=== PATIENT | male | born 1990 | race African-American/Black ===

== ENCOUNTER 2016-10-14 21:49 | Inpatient (IN) ==
[2016-10-14] MEDS ORDERED: SODIUM CHLORIDE 0.9% 1,000 ML IV STA (22:03)
[2016-10-14] MEDS ORDERED: HYDROmorphone 2 MG/1 ML VIAL IV STA ×2 (22:03→23:09)
[2016-10-14] MEDS ORDERED: PROMETHAZINE 25 MG/1 ML VIAL IM STA (22:06)
[2016-10-14] MEDS ORDERED: PROMETHAZINE 25 MG/1 ML VIAL ONE (22:18)
[2016-10-14] MEDS ORDERED: HYDROmorphone 2 MG/1 ML VIAL ONE ×2 (22:19→23:08)
[2016-10-14 22:21] LABS: Basophils # 0.1 10*3/uL (0.0-0.2); Basophils % 0.3 % (0.0-0.8); Eosinophils # 1.3 10*3/uL (0.0-0.87); Eosinophils % 4.8 % (0.00-10.9); Hematocrit 22.7 VOL% (42.0-52.0); Hemoglobin 7.9 GM/DL (14.0-18.0); Immature Granulocytes % 0.5 %; Immature Granulocytes Absolute 0.15 #; Lymphocytes # 14.3 10*3/uL (1.4-4.0); Lymphocytes % 51.8 % (21.2-54.2); Mean Corpuscular HGB Conc 34.8 GM/DL (32-36); Mean Corpuscular Hemoglobin 34 PG (27-34); Mean Corpuscular Volume 96.6 FL (87-102); Mean Platelet Volume 9.7 FL (9.6-12.0); Monocytes # 1.9 10*3/uL (0.11-0.8); Monocytes % 6.8 % (1.7-12.7); NRBC # 0.24 10*3/uL; Neutrophils # 9.9 10*3/uL (1.4-7.4); Neutrophils % 35.8 % (38.7-73.9); Platelet Count 511 T/CUMM (130-400); Red Blood Count 2.35 MC/CUMM (3.8-5.5); Red Cell Distribution Width 24.4 % (9.3-17.3); White Blood Count 27.7 T/CUMM (4-12)
--- NOTE | 2016-10-14 22:28 | XRay Report ---
XR chest 1V portable Indication: Chest pain. Comparison: Chest x-ray September 12, 2016 Technique: Portable AP chest was performed. Findings: Heart size, mediastinal contour, and hilar structures demonstrate no significant abnormalities. The lung parenchyma is clear. Bones and soft tissues demonstrate no significant abnormalities. Impression: 1. No evidence of acute pathology. 10/14/2016 10:25 PM PROCEDURE INTERPRETED AT [facility] DEPARTMENT OF RADIOLOGY Final Report Signed by: Dr. Vahe Buchanan
[2016-10-14 22:30] LABS: Apearance,Urine CLEAR (Clear); Bilirubin,Urine Negative (Negative); Blood, Urine Negative (Negative); Glucose,Urine (UA) Negative (Negative); Ketones,Urine Negative (Negative); Mucus,Urine Occasional /LPF (Occasional); Nitrite,Urine Negative (Negative); Protein,Urine Negative; Squamous Epithelial Cell,Urine Occasional /HPF (0-10); Urine Color Yellow (Yellow); Urine Specific Gravity 1.009 (1.001-1.035); Urine Urobilinogen < 2.0 EU/DL (0.2-1.0); WBC,Urine 1 /HPF (0-6)
[2016-10-14 22:31] LABS: PT Patient Result 11.1 SECS
[2016-10-14 22:35] LABS: Barbiturates Screen,Urine Negative (Negative); Benzodiazepines Screen,Urine Negative (Negative); Cannabinoid Screen,Urine Negative (Negative); Opiate Screen,Urine Positive (Negative); Phencyclidine Screen,Urine Negative (Negative)
[2016-10-14 22:47] LABS: Albumin 4.8 G/DL (3.4-5.0); Bilirubin,Total 2.5 MG/DL (0.2-1.0); Calcium 9.7 MG/DL (8.5-10.1); Total Protein 7.5 G/DL (6.4-8.3)
[2016-10-14 22:49] LABS: Troponin I Only < 0.015 NG/ML (0.00-0.045)
[2016-10-14 22:52] LABS: Eosinophils 2 % (0-10); Lymphocytes 60 % (20-55); Platelet Estimate Normal; Polychromasia 1+; Segmented Neutrophils 37 % (50-85); Sickle Cells 1+; Total Cells Counted 100
[2016-10-14 22:53] LABS: Target Cells Few
[2016-10-14] MEDS ORDERED: PROMETHAZINE 25 MG/1 ML VIAL IM PRN (23:08)
[2016-10-14] MEDS ORDERED: ZALEPLON 5 MG CAPSULE PO PRN (23:08)
[2016-10-14] MEDS ORDERED: ACETAMINOPHEN 325 MG TABLET PO PRN (23:08)
--- NOTE | 2016-10-14 23:12 | Emergency Department Note ---
Albert Delgado Gwan, am scribing for, and in the presence of, Nolberto Youngblood MD 22 :18. Ford Delgado Charles R, MD, personally performed the services described in this documentation, ascribed by Monie Price in my presence, and it is both accurate and complete 312 . Arrival - Arrival Chief Complaint: Sickle Cell Stated Complaint: SICKLE CELL CRISIS ED Nursing Triage Note: C/O Sickle cell crisis. Onset 2 days ago. Pt reports taking percocet approx 1600 today. Last dose of morphine was this morning. Pt reports that he is hurting all over Mode of Arrival: Ambulatory Limitations: No Limitations Source: Patient, Old Records Reviewed, RN Notes Reviewed Time Seen by Provider: 10/14/16 22:03 - History of Present Illness HPI Narrative: Patient is a 26 y/o black male who presents to the ED for further evaluation of sickle cell crisis that includes pain to long bones that radiates to back with an onset 2 days ago. Nurses report that pt stated he took Percocet at 1600 with minimal relief. Patient confirmed that he has had his spleen removed, that his last blood transfusion was 2 months ago and that he was last seen in ED for sickle cell crisis 1 month ago. Patient has a SHx of smoking cigarettes. Patient does not appear to be in distress. No other problems/complaints reported in ED. Onset (ago): day(s) Consistency: constant Severity: moderate Allergies/Adverse Reactions: Allergies Allergy/AdvReac Type Severity Reaction Status Date / Time Seafood Allergy Intermediate RASH Verified 07/09/16 02:09 ondansetron Allergy ITCHING Verified 07/09/16 02:09 [From Zofran (as hydrochloride)] Home Medications: Home Medications Medication Instructions Recorded Confirmed Type Fluticasone/Salmeterol 250-50 1 puff INH BID #1 diskus 01/26/16 10/14/16 Rx [Advair 250-50] Folic Acid Tab 1 mg PO BID #60 tablet 01/26/16 10/14/16 Rx Hydroxyurea [Hydrea] 2,000 mg PO BEDTIME #120 capsule 01/26/16 10/14/16 Rx Oxycodone HCl/Acetaminophen 1 each PO Q4-6H PRN #60 tablet 05/14/16 10/14/16 Rx [Percocet 10-325 mg Tablet] ALPRAZolam [Xanax] 2 mg PO DAILY 09/12/16 10/14/16 History Lisinopril [Lisinopril] 20 mg PO DAILY 09/12/16 10/14/16 History Morphine Sulfate [Morphine Sulfate 30 mg PO DAILY 09/12/16 10/14/16 History ER] Review of System - Review of System 12 point system: reviewed and no additional remarkable complaints except as stated - Review of System Constitutional: Absent: chills, fever Eyes: Absent: discharge, pain Head/Ears/Nose/Throat: Absent: earache Respiratory: Absent: cough Cardiovascular: Absent: chest pain Gastrointestinal: Absent: abdominal pain, nausea, vomiting, diarrhea Genitourinary male: Absent: urgency, dysuria Musculoskeletal: Present: arm pain, back pain, leg pain, other (pain to bilateral shoulders) Skin: Absent: rash, lesions Medical,Surgical,& Family Hx - Medical History Cardio: History of: Congenital Heart Disease Respiratory: History of: Bronchitis Gastrointestinal: History of: GI Problems (spleen removed) Musculoskeletal: History of: Musculoskeletal Problems (joint pain with sickle cell crisis) No history of: Amputation Hematology: History of: Anemia, Sickle Cell Disease - Surgical History Cardiac Surgeries: Patient Denies: Cardiac Catheterization Thoracic Surgeries: Patient denies;: Organ Transplant, Lobectomy HEENT Surgeries: Surgical HX of: Tonsilectomy & Adenoidectomy Abdominal Surgeries: Surgical HX of: Abdominal Surgery (spleenectomy), Hernia Repair, Splenectomy Reproductive Surgeries: Patient denies;: Genitourinary Surgery - Family History Family History: Reports;: Family Cancer - Social History Smoking Status: Current some day smoker Frequency of Alcohol Use: None Type of Drug Use: None Exam Vital Signs: Vital Signs Temperature 98.7 F 10/14/16 21:53 Pulse Rate 88 10/14/16 21:53 Respiratory Rate 16 10/14/16 21:53 Blood Pressure 130/95 10/14/16 21:53 O2 Sat by Pulse Oximetry 98 10/14/16 21:53 - General General appearance: alert, in no apparent distress - Head Head exam: Present: atraumatic, normocephalic - Eye Eye exam: Present: normal appearance, PERRL, EOMI - ENT ENT exam: Present: normal oropharynx, mucous membranes moist, TM's normal bilaterally, normal external ear exam - Neck Neck exam: Present: full ROM - Chest Chest inspection: Present: symmetric chest wall rise. Absent: tenderness - Respiratory Respiratory exam: Present: normal lung sounds bilaterally. Absent: respiratory distress - Cardiovascular Cardiovascular exam: Present: regular rate, normal rhythm, normal heart sounds. Absent: murmur - Abdominal Exam Abdominal exam: Present: soft, normal bowel sounds. Absent: distention, tenderness - Extremities Exam Extremities exam: Present: other (patient has pain to long bones i.e., bilateral arms, bilateral leg and bilateral shoulders ) - Back Exam Back exam: Present: full ROM - Neurological Exam Neurological exam: Present: alert, oriented X3, CN II-XII intact. Absent: motor sensory deficit - Psychiatric Psychiatric exam: Present: normal affect, normal mood - Skin Skin exam: Present: warm, dry, intact, normal color Course - Consultations Consultation #1: Hospitalist will admit patient Time: 23:12 Results - Labs CBC & BMP: 10/14/16 22:06 10/14/16 22:06 Lab Results: I have reviewed the patients labs Labs: Laboratory Tests 10/14/16 10/14/16 10/14/16 22:05 22:05 22:06 WBC RBC Hgb Hct RDW Plt Count Neut % (Auto) Neut # (Auto) Lymph # (Auto) [place] # (Auto) Eos # (Auto) Percent Retic > 26.1 H INR PT Patient/Control Mix Urine pH 5.0 Ur Specific [place] 1.009 Urine Urobilinogen < 2.0 H Urine WBC 1 Urine Opiates Screen Positive H Ur Barbiturates Screen Negative Ur Phencyclidine Scrn Negative U Amphetamine/Methamph Negative U Benzodiazepines Scrn Negative U Cocaine Metab Screen Negative U Cannabinoids Screen Negative 10/14/16 10/14/16 22:06 22:06 WBC 27.7 H RBC 2.35 L Hgb 7.9 L Hct 22.7 L RDW 24.4 H Plt Count 511 H Neut % (Auto) 35.8 L Neut # (Auto) 9.9 H Lymph # (Auto) 14.3 H [place] # (Auto) 1.9 H Eos # (Auto) 1.3 H Percent Retic INR 1.0 PT Patient/Control Mix 11.1 Urine pH Ur Specific [place] Urine Urobilinogen Urine WBC Urine Opiates Screen Ur Barbiturates Screen Ur Phencyclidine Scrn U Amphetamine/Methamph U Benzodiazepines Scrn U Cocaine Metab Screen U Cannabinoids Screen Laboratory Tests 10/14/16 10/14/16 22:06 22:06 WBC 27.7 H RBC 2.35 L Hgb 7.9 L Hct 22.7 L RDW 24.4 H Plt Count 511 H Neut % (Auto) 35.8 L Neut # (Auto) 9.9 H Lymph # (Auto) 14.3 H [place] # (Auto) 1.9 H Eos # (Auto) 1.3 H Segmented Neutrophils 37 L Lymphocytes 60 H Monocytes 1 L Sodium 143 Potassium 4.0 Chloride 110 H Carbon Dioxide 26 BUN 11 Creatinine 1.20 Total Bilirubin 2.50 H Lipase 140.0 - Diagnostic Findings Procedure: Chest x-ray: report reviewed by me (No evidence of acute pathology. ) Disposition Clinical Impression: Sickle cell pain crisis, Anemia Case discussed with: patient, patient's family Disposition: Still a Patient Condition: Stable Time of Disposition: 23:12
--- NOTE | 2016-10-14 23:32 | Hospitalist History & Physical ---
Assessment and Plan (1) Anemia Status: Acute Current Visit: Yes Qualifiers: Anemia type: other cause Other causes of anemia: chronic disease, other Qualified Code(s): D63.8 - Anemia in other chronic diseases classified elsewhere (2) chronic pain Status: Acute Current Visit: No (3) Sickle cell pain crisis Status: Acute Assessment and plan: Our plan for this patient. We will get admit the patient to our service. I will schedule him 3 mg IV Dilaudid every 3 hours as needed. Continue his other home meds as appropriate. Patient needs to be on this for about 48 hours then it can be trimmed back his pain decreases. I try not to transfuse the patient at this time. Patient's H&H 7.9 at 22.7. Will try IV fluids and check labs in the morning Current Visit: Yes History of Present Illness Chief complaint: Sickle cell crisis History of present illness: Mr. Patel is a 26 year old male with past medical history significant for sickle cell disease reports a 2 day history of sickle cell pain. Patient's were reported that he has got pain from his shoulders all the way down to his legs. Patient was trying to stay at home on his p.o. medications. He receives his medication from [facility] therefore he will not need prescriptions once he is discharged. Patient's white cell count is elevated and retake count is greater than 26.1. Patient's total bili is 2.5. Patient does need to be admitted to treat a sickle cell crisis. I was consulted to admit him to the emergency room. Home Medications Medication Instructions Recorded Confirmed Type Fluticasone/Salmeterol 250-50 1 puff INH BID #1 diskus 01/26/16 10/14/16 Rx [Advair 250-50] Folic Acid Tab 1 mg PO BID #60 tablet 01/26/16 10/14/16 Rx Hydroxyurea [Hydrea] 2,000 mg PO BEDTIME #120 capsule 01/26/16 10/14/16 Rx Oxycodone HCl/Acetaminophen 1 each PO Q4-6H PRN #60 tablet 05/14/16 10/14/16 Rx [Percocet 10-325 mg Tablet] ALPRAZolam [Xanax] 2 mg PO DAILY 09/12/16 10/14/16 History Lisinopril [Lisinopril] 20 mg PO DAILY 09/12/16 10/14/16 History Morphine Sulfate [Morphine Sulfate 30 mg PO DAILY 09/12/16 10/14/16 History ER] Allergies Allergy/AdvReac Type Severity Reaction Status Date / Time Seafood Allergy Intermediate RASH Verified 07/09/16 02:09 ondansetron Allergy ITCHING Verified 07/09/16 02:09 [From Zofran (as hydrochloride)] Medical,Surgical,& Family Hx - Medical History Cardio: History of: Congenital Heart Disease Respiratory: History of: Bronchitis Gastrointestinal: History of: GI Problems (spleen removed) Musculoskeletal: History of: Musculoskeletal Problems (joint pain with sickle cell crisis) No history of: Amputation Hematology: History of: Anemia, Sickle Cell Disease - Surgical History Cardiac Surgeries: Patient Denies: Cardiac Catheterization Thoracic Surgeries: Patient denies;: Organ Transplant, Lobectomy HEENT Surgeries: Surgical HX of: Tonsilectomy & Adenoidectomy Abdominal Surgeries: Surgical HX of: Abdominal Surgery (spleenectomy), Hernia Repair, Splenectomy Reproductive Surgeries: Patient denies;: Genitourinary Surgery - Family History Family History: Reports;: Family Cancer - Social History Smoking Status: Current some day smoker Frequency of Alcohol Use: None Type of Drug Use: None 12 point system: reviewed and no additional remarkable complaints except as stated Exam - Constitutional General appearance: normal weight - Head Head exam: Present: normal inspection - Eye Eye exam: Present: EOMI Pupils: Present: JOSE G - ENT ENT exam: Present: normal exam - Neck Neck exam: Present: normal inspection - Respiratory Respiratory exam: Present: clear to auscultation bilaterally - Cardiovascular Cardiovascular exam: Present: tachycardia - GI/Abdominal GI/Abdominal exam: Present: normal bowel sounds - Extremities Exam Extremities exam: Present: normal inspection - Back Exam Back exam: Present: normal inspection - Neurological Exam Neurological exam: Present: alert, oriented X3 - Psychiatric Psychiatric exam: Present: normal affect, normal mood - Skin Skin exam: Present: normal color Results - Labs CBC & BMP: 10/14/16 22:06 10/14/16 22:06
[2016-10-14] MEDS: SODIUM CHLORIDE 0.9% 1,000 ML IV SCH (23:58)
[2016-10-14] MEDS: ENOXAPARIN 40 MG/0.4 ML SYRINGE SUBCUT SCH (23:58)
[2016-10-14] MEDS: HYDROXYUREA 500 MG CAPSULE PO SCH (23:58)
[2016-10-15] MEDS: HYDROmorphone 2 MG/1 ML VIAL IV PRN ×9 (00:08→23:53)
[2016-10-15] MEDS: SODIUM CHLORIDE 0.9% 1,000 ML IV SCH ×4 (03:07→23:59)
[2016-10-15 05:18] LABS: Basophils # 0.1 10*3/uL (0.0-0.2); Basophils % 0.2 % (0.0-0.8); Eosinophils # 1.3 10*3/uL (0.0-0.87); Eosinophils % 5.2 % (0.00-10.9); Hematocrit 20.1 VOL% (42.0-52.0); Hemoglobin 6.9 GM/DL (14.0-18.0); Immature Granulocytes % 0.5 %; Immature Granulocytes Absolute 0.12 #; Lymphocytes # 13.4 10*3/uL (1.4-4.0); Lymphocytes % 55.7 % (21.2-54.2); Mean Corpuscular HGB Conc 34.3 GM/DL (32-36); Mean Corpuscular Hemoglobin 34 PG (27-34); Mean Corpuscular Volume 97.6 FL (87-102); Mean Platelet Volume 10.1 FL (9.6-12.0); Monocytes # 1.6 10*3/uL (0.11-0.8); Monocytes % 6.6 % (1.7-12.7); NRBC # 0.19 10*3/uL; Neutrophils # 7.6 10*3/uL (1.4-7.4); Neutrophils % 31.8 % (38.7-73.9); Platelet Count 467 T/CUMM (130-400); Red Blood Count 2.06 MC/CUMM (3.8-5.5); Red Cell Distribution Width 23.4 % (9.3-17.3)
[2016-10-15 05:39] LABS: Eosinophils 7 % (0-10); Lymphocytes 49 % (20-55); Platelet Estimate Adequate; Segmented Neutrophils 38 % (50-85); Total Cells Counted 100
[2016-10-15 05:40] LABS: Elliptocytes Few; Hypochromasia 1+; Macrocytosis Slight; Polychromasia Slight; Sickle Cells Few; Target Cells Few
[2016-10-15 05:41] LABS: Howell-Jolly Bodies Slight
[2016-10-15 05:42] LABS: Pappenheimer Bodies Slight
[2016-10-15 05:58] LABS: Albumin 4.2 G/DL (3.4-5.0); Bilirubin,Total 2.8 MG/DL (0.2-1.0); Potassium 4.3 MMOL/L (3.5-5.1); Total Protein 6.3 G/DL (6.4-8.3)
[2016-10-15] MEDS: ALPRAZolam 0.5 MG TABLET PO SCH (09:05)
[2016-10-15] MEDS: PANTOPRAZOLE 40 MG TABLET PO SCH (09:06)
[2016-10-15] MEDS: DOCUSATE SODIUM 100 MG CAPSULE PO SCH ×2 (09:06→20:43)
[2016-10-15] MEDS: LISINOPRIL 20 MG TABLET PO SCH (09:06)
[2016-10-15] MEDS: MORPHINE ER 30 MG TABLET PO SCH (09:06)
[2016-10-15] MEDS: FOLIC ACID 1 MG TABLET PO SCH ×2 (09:06→20:43)
[2016-10-15] MEDS: FLUTICASONE/SALMETEROL 250-50 DISKUS 14 DOSE INH SCH ×2 (09:07→20:44)
[2016-10-15] MEDS ORDERED: SODIUM CHLORIDE 0.9% 250 ML IV PRN (10:46)
[2016-10-15] MEDS ORDERED: diphenhydrAMINE 50 MG/1 ML VIAL IV ONE ×3 (10:51→11:04)
--- NOTE | 2016-10-15 10:54 | Hospitalist Progress Note ---
Assessment and Plan (1) Anemia Status: Acute Assessment and plan: Noted hemoglobin and hematocrit down from admission probably because of hemolysis as total bilirubin is elevated. I will go ahead and check the LDH level. I will repeat LDH and hemoglobin hematocrit tomorrow after transfusion of 2 packed RBC patient to keep hydrated. He complained of itching so I will give him a dose of Benadryl IV with transfusion. I have discussed the transfusion with him and explain him the risk and benefit and he is okay with a transfusion actually was expecting to have a packed cell transfusion due to his symptoms Current Visit: Yes Qualifiers: Anemia type: other cause Other causes of anemia: chronic disease, other Qualified Code(s): D63.8 - Anemia in other chronic diseases classified elsewhere (2) Sickle cell pain crisis Status: Acute Assessment and plan: Continue current analgesic dosing will try to cut down the dose after the transfusion Current Visit: Yes Hospitalist: Subjective Interval history: Mr. Patel is a 26 year old male with past medical history significant for sickle cell disease admitted with the generalized pain started 2 days prior to admission. He has pain medication at home and keep himself hydrated. 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 There is no history of for chest pain cough or fever. He was admitted noted to have a leukocytosis on admission and total bilirubin was 2.5. He has been on analgesic here and according to patient it is helping some with the pain Exam - Constitutional Vitals: Period Temp Pulse Resp BP Sys/Wheeler Pulse Ox Last 24 Hr 97.7 F-98.9 F 80-92 18-20 154-169/93-102 96-98 General appearance: no acute distress - Respiratory Respiratory exam: Present: clear to auscultation bilaterally. Absent: rales, rhonchi - Cardiovascular Cardiovascular exam: Present: regular rate and rhythm. Absent: tachycardia - GI/Abdominal GI/Abdominal exam: Present: normal bowel sounds, soft. Absent: distended, tenderness - Extremities Exam Extremities exam: Present: normal inspection. Absent: edema - Neurological Exam Neurological exam: Present: alert, oriented X3 - Psychiatric Psychiatric exam: Present: normal affect, normal mood Results - Labs CBC & BMP: 10/15/16 04:38 10/15/16 04:38 Lab Results: I have reviewed the past 24 hour labs
[2016-10-15] MEDS: HYDROXYUREA 500 MG CAPSULE PO SCH (20:43)
[2016-10-15] MEDS: ENOXAPARIN 40 MG/0.4 ML SYRINGE SUBCUT SCH (20:49)
[2016-10-16] MEDS ORDERED: hydrOXYzine HCL 25 MG TABLET PO PRN (00:20)
[2016-10-16] MEDS: SODIUM CHLORIDE 0.9% 1,000 ML IV SCH ×2 (00:37→14:36)
[2016-10-16] MEDS: HYDROmorphone 2 MG/1 ML VIAL IV PRN ×7 (02:52→20:31)
[2016-10-16] MEDS: diphenhydrAMINE CAP 25 MG CAPSULE PO PRN (02:56)
[2016-10-16 06:22] LABS: Basophils # 0.1 10*3/uL (0.0-0.2); Basophils % 0.2 % (0.0-0.8); Eosinophils # 1.3 10*3/uL (0.0-0.87); Eosinophils % 6.3 % (0.00-10.9); Hematocrit 25.1 VOL% (42.0-52.0); Hemoglobin 8.7 GM/DL (14.0-18.0); Immature Granulocytes % 0.5 %; Immature Granulocytes Absolute 0.11 #; Lymphocytes # 7.2 10*3/uL (1.4-4.0); Lymphocytes % 35.7 % (21.2-54.2); Mean Corpuscular HGB Conc 34.7 GM/DL (32-36); Mean Corpuscular Hemoglobin 32 PG (27-34); Mean Platelet Volume 10.2 FL (9.6-12.0); Monocytes # 1.1 10*3/uL (0.11-0.8); Monocytes % 5.5 % (1.7-12.7); NRBC # 0.22 10*3/uL; Neutrophils # 10.5 10*3/uL (1.4-7.4); Neutrophils % 51.8 % (38.7-73.9); Platelet Count 464 T/CUMM (130-400); Red Cell Distribution Width 23.4 % (9.3-17.3); White Blood Count 20.3 T/CUMM (4-12)
[2016-10-16 06:45] LABS: Eosinophils 5 % (0-10); Lymphocytes 43 % (20-55); Nucleated Red Blood Cells 1 (0-5); Segmented Neutrophils 46 % (50-85); Total Cells Counted 100
[2016-10-16 06:46] LABS: Elliptocytes Few; Hypochromasia 1+; Macrocytosis Slight; Platelet Estimate Adequate; Polychromasia Slight; Target Cells Few
[2016-10-16 06:48] LABS: Sickle Cells Slight
[2016-10-16 06:49] LABS: Howell-Jolly Bodies Slight; Pappenheimer Bodies Slight
[2016-10-16 06:56] LABS: Calcium 9.6 MG/DL (8.5-10.1); Osmolality,Calculated 278.4 MOS/KG (273-304); Potassium 4.6 MMOL/L (3.5-5.1)
[2016-10-16] MEDS: ALPRAZolam 0.5 MG TABLET PO SCH (09:59)
[2016-10-16] MEDS: LISINOPRIL 20 MG TABLET PO SCH (09:59)
[2016-10-16] MEDS: MORPHINE ER 30 MG TABLET PO SCH (09:59)
[2016-10-16] MEDS: DOCUSATE SODIUM 100 MG CAPSULE PO SCH ×2 (09:59→20:37)
[2016-10-16] MEDS: PANTOPRAZOLE 40 MG TABLET PO SCH (09:59)
[2016-10-16] MEDS: FOLIC ACID 1 MG TABLET PO SCH ×2 (09:59→20:37)
[2016-10-16] MEDS: FLUTICASONE/SALMETEROL 250-50 DISKUS 14 DOSE INH SCH ×2 (10:00→20:48)
--- NOTE | 2016-10-16 14:55 | Hospitalist Progress Note ---
Assessment and Plan (1) Anemia Status: Acute Assessment and plan: Patient was given to packed RBC transfusion and his hemoglobin hematocrit improved appropriately his anemia symptom better Current Visit: Yes Qualifiers: Anemia type: other cause Other causes of anemia: chronic disease, other Qualified Code(s): D63.8 - Anemia in other chronic diseases classified elsewhere (2) Sickle cell pain crisis Status: Acute Assessment and plan: Still complaining of pain Current Visit: Yes Hospitalist: Subjective Interval history: Mr. Patel is a 26 year old male with past medical history significant for sickle cell disease admitted with the generalized pain started 2 days prior to admission. He has pain medication at home and keep himself hydrated. 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 There is no history of for chest pain cough or fever. He was admitted noted to have a leukocytosis on admission and total bilirubin was 2.5. He has been on dialudid here and according to patient it is helping some with the pain. He was transfused yesterday with a 2 packed RBC and his report that his energy level is back but still having pain in the upper back and feel he required to have pain medication the hospital to control. He has oral medication at home no fever chest pain or shortness of breath Exam - Constitutional Vitals: Period Temp Pulse Resp BP Sys/Wheeler Pulse Ox Last 24 Hr 97.4 F-99.4 F 75-90 18-20 140-178/85-105 91-95 General appearance: no acute distress - Respiratory Respiratory exam: Present: clear to auscultation bilaterally. Absent: rales, rhonchi - Cardiovascular Cardiovascular exam: Present: regular rate and rhythm. Absent: tachycardia - GI/Abdominal GI/Abdominal exam: Present: normal bowel sounds, soft. Absent: distended, tenderness - Extremities Exam Extremities exam: Present: normal inspection. Absent: edema - Neurological Exam Neurological exam: Present: alert, oriented X3 Results - Labs CBC & BMP: 10/16/16 05:52 10/16/16 05:52 Lab Results: I have reviewed the past 24 hour labs
[2016-10-16] MEDS: HYDROXYUREA 500 MG CAPSULE PO SCH (20:37)
[2016-10-16] MEDS: ENOXAPARIN 40 MG/0.4 ML SYRINGE SUBCUT SCH (20:48)
[2016-10-17] MEDS: HYDROmorphone 2 MG/1 ML VIAL IV PRN ×3 (00:33→11:52)
[2016-10-17] MEDS: diphenhydrAMINE CAP 25 MG CAPSULE PO PRN (00:33)
[2016-10-17] MEDS: SODIUM CHLORIDE 0.9% 1,000 ML IV SCH (07:49)
[2016-10-17 08:29] VITALS: BP 146/80
[2016-10-17] MEDS: MORPHINE ER 30 MG TABLET PO SCH (08:48)
[2016-10-17] MEDS: LISINOPRIL 20 MG TABLET PO SCH (08:48)
[2016-10-17] MEDS: FOLIC ACID 1 MG TABLET PO SCH (08:48)
[2016-10-17] MEDS: PANTOPRAZOLE 40 MG TABLET PO SCH (08:48)
[2016-10-17] MEDS: ALPRAZolam 0.5 MG TABLET PO SCH (08:48)
[2016-10-17] MEDS: DOCUSATE SODIUM 100 MG CAPSULE PO SCH (08:48)
[2016-10-17] MEDS: FLUTICASONE/SALMETEROL 250-50 DISKUS 14 DOSE INH SCH (10:29)
--- NOTE | 2016-10-17 12:19 | Discharge Summary ---
Hospital Course - Hospital Course Hospital Course: Mr. Patel is a 26 year old male with past medical history significant for sickle cell disease admitted with the generalized pain started 2 days prior to admission. He has pain medication at home and keep himself hydrated. 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 He had no history of for chest pain,shortness of breath cough or fever. He was admitted noted to have a leukocytosis on admission and total bilirubin was 2.5. He was started on IV fluids and Dilaudid IV as needed. His pain progressively improved noted to have a hemoglobin of 6.9 on 10/15/2016 which was a drop from 7.9 earlier. He received 2 packed RBC transfusion and his hemoglobin rising to 8.7 next day he reported his energy level was improved but still had some pain yesterday. He remained afebrile. He is ready to go home today he is being followed by Dr. Welch and has morphine prescription at home does not need any pain medicine prescription. He has received maximum benefit from hospitalization and discharged Diagnosis - Discharge Diagnosis (1) Anemia Status: Chronic (2) Sickle cell pain crisis Status: Acute Discharge Plan - Discharge Data Disposition: Disch To Home/Self Care Condition at Discharge: Stable Discharge Diet: advance to your usual diet Activity: resume usual activities as tolerated, other (Avoid dehydration) - Discharge Medications Continue Fluticasone/Salmeterol 250-50 [Advair 250-50] 1 puff INH BID #1 diskus Folic Acid Tab 1 mg PO BID #60 tablet Hydroxyurea [Hydrea] 2,000 mg PO BEDTIME #120 capsule Oxycodone HCl/Acetaminophen [Percocet 10-325 mg Tablet] 1 each PO Q4-6H PRN # 60 tablet PRN Reason: Pain Lisinopril 20 mg PO DAILY Morphine Sulfate [Morphine Sulfate ER] 30 mg PO DAILY ALPRAZolam [Xanax] 2 mg PO DAILY - Follow Up or Referral - Forms/Instructions Exam - Constitutional Vitals: Period Temp Pulse Resp BP Sys/Wheeler Pulse Ox Last 24 Hr 98.3 F-99.2 F 73-85 16-20 142-163/80-98 91-94 General appearance: no acute distress - Respiratory Respiratory exam: Present: clear to auscultation bilaterally. Absent: rales, rhonchi - Cardiovascular Cardiovascular exam: Present: regular rate and rhythm. Absent: tachycardia - GI/Abdominal GI/Abdominal exam: Present: normal bowel sounds, soft. Absent: distended, tenderness - Extremities Exam Extremities exam: Present: normal inspection. Absent: edema - Neurological Exam Neurological exam: Present: alert, oriented X3 DS: Provider Date of admission: 10/14/16 23:08 Primary care physician: . No PCP Attending physician on admission: Venancio Gutierrez MD Discharging clinician: Jamal Banks MD
== END 2016-10-17 12:01 | disposition home or self-care (01) | DRG 812 ==
LOC: N.ED 21:49 → N.EDINP 23:08 → SUATTDRO 23:08 → N.4E 23:33
PROVIDERS: ADMIT Internal Medicine; ATTEND Internal Medicine

== ENCOUNTER 2016-11-23 02:59 | Inpatient (IN) ==
[2016-11-23] MEDS ORDERED: SODIUM CHLORIDE 0.9% 1,000 ML IV STA (03:22)
[2016-11-23] MEDS ORDERED: HYDROmorphone 2 MG/1 ML VIAL IV STA ×2 (03:22→04:01)
[2016-11-23] MEDS ORDERED: METOCLOPRAMIDE 10 MG/2 ML VIAL IV STA (03:22)
[2016-11-23] MEDS ORDERED: HYDROmorphone 2 MG/1 ML VIAL ONE ×2 (03:32→04:04)
[2016-11-23] MEDS ORDERED: METOCLOPRAMIDE 10 MG/2 ML VIAL ONE (03:32)
[2016-11-23 03:42] LABS: Basophils % 0.1 % (0.0-0.8); Eosinophils # 1.1 10*3/uL (0.0-0.87); Eosinophils % 4.2 % (0.00-10.9); Immature Granulocytes % 0.6 %; Immature Granulocytes Absolute 0.15 #; Lymphocytes # 8.6 10*3/uL (1.4-4.0); Lymphocytes % 34.2 % (21.2-54.2); Mean Corpuscular HGB Conc 36.9 GM/DL (32-36); Mean Corpuscular Hemoglobin 34 PG (27-34); Mean Corpuscular Volume 91.2 FL (87-102); Mean Platelet Volume 9.8 FL (9.6-12.0); Monocytes # 1.6 10*3/uL (0.11-0.8); Monocytes % 6.4 % (1.7-12.7); NRBC # 0.17 10*3/uL; Neutrophils # 13.7 10*3/uL (1.4-7.4); Neutrophils % 54.5 % (38.7-73.9); Platelet Count 422 T/CUMM (130-400); Red Blood Count 2.05 MC/CUMM (3.8-5.5); Red Cell Distribution Width 22.6 % (9.3-17.3); White Blood Count 25.2 T/CUMM (4-12)
--- NOTE | 2016-11-23 03:43 | Emergency Department Note ---
I, Renea De Leon, am scribing for, and in the presence of, Giovana Brady DO 03:28. I, Giovana Brady DO, personally performed the services described in this documentation, ascribed by Renea De Leon in my presence, and it is both accurate and complete . Arrival - Arrival Chief Complaint: Sickle Cell Stated Complaint: sickle cell crisis smith at level 10 ED Nursing Triage Note: Patient to triage with c/o sickle cell crisis x 2 days. Patient having patient in all joints, which is typical pain for him during a crisis. Mode of Arrival: Ambulatory Limitations: No Limitations Source: Patient Time Seen by Provider: 11/23/16 03:17 - History of Present Illness HPI Narrative: Pt is a 26 y/o male who came to ED with c/o left shoulder pain to bilateral ankle pain, basically in joints, that has been ongoing for two days. Pt was seeing a specialist for his Sickle Cell Anemia in [place], [place], but denies having one currently. Pt states he thinks his blood is low. Pt is demanding in pain medication tonight, and reports last visit he wasn't given anything that helped to control it. No other complaint/pain in ED. Onset (ago): day(s) Consistency: constant Severity: mild Severity scale (1-10): 3 Quality: aching Allergies/Adverse Reactions: Allergies Allergy/AdvReac Type Severity Reaction Status Date / Time Seafood Allergy Intermediate RASH Verified 11/23/16 03:08 ondansetron Allergy ITCHING Verified 11/23/16 03:08 [From Zofran (as hydrochloride)] promethazine [From Phenergan] Allergy HIVES Verified 11/23/16 03:08 Home Medications: Home Medications Medication Instructions Recorded Confirmed Type Fluticasone/Salmeterol 250-50 1 puff INH BID #1 diskus 01/26/16 11/08/16 Rx [Advair 250-50] Folic Acid Tab 1 mg PO BID #60 tablet 01/26/16 11/08/16 Rx Hydroxyurea [Hydrea] 2,000 mg PO BEDTIME #120 capsule 01/26/16 11/08/16 Rx Oxycodone HCl/Acetaminophen 1 each PO Q4-6H PRN #60 tablet 05/14/16 11/08/16 Rx [Percocet 10-325 mg Tablet] Lisinopril 20 mg PO DAILY 09/12/16 11/08/16 History Morphine Sulfate [Morphine Sulfate 30 mg PO DAILY 09/12/16 11/08/16 History ER] Review of System - Review of System 12 point system: reviewed and no additional remarkable complaints except as stated - Review of System Constitutional: Absent: fever, weakness Respiratory: Absent: respiratory distress Cardiovascular: Absent: chest pain Gastrointestinal: Absent: abdominal pain Musculoskeletal: Present: other (body aches from shoulder to ankles pain). Absent: neck pain Skin: Absent: rash Medical,Surgical,& Family Hx - Medical History Cardio: History of: Congenital Heart Disease Respiratory: History of: Bronchitis Gastrointestinal: History of: GI Problems (spleen removed) Musculoskeletal: History of: Musculoskeletal Problems (joint pain with sickle cell crisis) No history of: Amputation Hematology: History of: Anemia, Sickle Cell Disease - Surgical History Cardiac Surgeries: Patient Denies: Cardiac Catheterization Thoracic Surgeries: Patient denies;: Organ Transplant, Lobectomy HEENT Surgeries: Surgical HX of: Tonsilectomy & Adenoidectomy Abdominal Surgeries: Surgical HX of: Abdominal Surgery (spleenectomy), Hernia Repair, Splenectomy Reproductive Surgeries: Patient denies;: Genitourinary Surgery - Family History Family History: Reports;: Family Cancer - Social History Smoking Status: Current some day smoker Frequency of Alcohol Use: Occasionally Type of Drug Use: None Marital Status: Single Functional capacity: independent ambulation Exam Vital Signs: Vital Signs Temperature 99.0 F 11/23/16 03:05 Pulse Rate 102 H 11/23/16 03:05 Respiratory Rate 22 11/23/16 03:05 Blood Pressure 158/94 11/23/16 03:05 O2 Sat by Pulse Oximetry 89 L 11/23/16 03:05 - General General appearance: alert, in no apparent distress - Head Head exam: Present: atraumatic, normocephalic - Eye Eye exam: Present: PERRL, EOMI - ENT ENT exam: Present: mucous membranes moist. Absent: mucous membranes dry - Neck Neck exam: Present: full ROM. Absent: tenderness - Chest Chest inspection: Present: symmetric chest wall rise. Absent: tenderness - Respiratory Respiratory exam: Present: normal lung sounds bilaterally. Absent: respiratory distress - Cardiovascular Cardiovascular exam: Present: regular rate, normal rhythm, normal heart sounds - Abdominal Exam Abdominal exam: Present: soft, normal bowel sounds. Absent: tenderness - Extremities Exam Extremities exam: Present: full ROM. Absent: tenderness, pedal edema - Back Exam Back exam: Present: full ROM. Absent: tenderness - Neurological Exam Neurological exam: Present: alert, oriented X3, CN II-XII intact. Absent: motor sensory deficit - Psychiatric Psychiatric exam: Present: normal affect, normal mood - Skin Skin exam: Present: warm, dry Course Course Narrative: spoke with hospitalist who will admit pt. pt is stable at this time and requesting more pain meds. he has had a total of 4 mg dilaudid Results - Labs CBC & BMP: 11/23/16 03:27 11/23/16 03:27 Lab Results: I have reviewed the patients labs Labs: Laboratory Tests 11/23/16 03:27 WBC 25.2 H RBC 2.05 L Hgb 6.9 L Hct 18.7 L MCHC 36.9 H RDW 22.6 H Plt Count 422 H Neut # (Auto) 13.7 H Lymph # (Auto) 8.6 H [place] # (Auto) 1.6 H Eos # (Auto) 1.1 H Percent Retic > 26.1 H Disposition Clinical Impression: Sickle cell pain crisis Case discussed with: patient Disposition: Still a Patient Condition: Stable Time of Disposition: 04:07
[2016-11-23 03:50] LABS: Hematocrit 18.7 VOL% (42.0-52.0); Hemoglobin 6.9 GM/DL (14.0-18.0)
[2016-11-23 03:53] LABS: Apearance,Urine CLEAR (Clear); Bacteria,Urine Occasional /HPF (Few); Bilirubin,Urine Negative (Negative); Blood, Urine Moderate mg/dL (Negative); Glucose,Urine (UA) Negative (Negative); Hyaline Casts,Urine 1 /LPF (0-3); Ketones,Urine Negative (Negative); Nitrite,Urine Negative (Negative); Protein,Urine 100 MG/DL; Squamous Epithelial Cell,Urine Occasional /HPF (0-10); Urine Specific Gravity 1.008 (1.001-1.035); WBC,Urine 1 /HPF (0-6)
[2016-11-23 03:57] LABS: Albumin 4.5 G/DL (3.4-5.0); Bilirubin,Total 5.2 MG/DL (0.2-1.0); Calcium 9.5 MG/DL (8.5-10.1); Osmolality,Calculated 281.1 MOS/KG (273-304); Potassium 4.4 MMOL/L (3.5-5.1)
[2016-11-23 04:00] LABS: Barbiturates Screen,Urine Negative (Negative); Benzodiazepines Screen,Urine Negative (Negative); Cannabinoid Screen,Urine Negative (Negative); Opiate Screen,Urine Positive (Negative); Phencyclidine Screen,Urine Negative (Negative)
[2016-11-23] MEDS ORDERED: SODIUM CHLORIDE 0.9% 250 ML IV PRN (04:02)
[2016-11-23] MEDS ORDERED: ZALEPLON 5 MG CAPSULE PO PRN (04:02)
[2016-11-23] MEDS ORDERED: BISACODYL 5 MG TABLET PO PRN (04:02)
[2016-11-23] MEDS ORDERED: MORPHINE 2 MG/1 ML SYRINGE IV PRN (04:02)
[2016-11-23] MEDS ORDERED: ACETAMINOPHEN 325 MG TABLET PO PRN (04:02)
[2016-11-23] MEDS ORDERED: diphenhydrAMINE 50 MG/1 ML VIAL IV STA (04:07)
[2016-11-23 04:08] LABS: Urine Color Amber (Yellow)
[2016-11-23] MEDS ORDERED: diphenhydrAMINE 50 MG/1 ML VIAL ONE (04:09)
[2016-11-23 04:43] LABS: Band Neutrophils 8 % (0-10); Eosinophils 4 % (0-10); Lymphocytes 32 % (20-55); Nucleated Red Blood Cells 9 (0-5); Platelet Estimate Increased; Segmented Neutrophils 52 % (50-85); Total Cells Counted 100
--- NOTE | 2016-11-23 04:43 | Hospitalist History & Physical ---
Assessment and Plan - Time spent with patient Time spent with patient: Less than 30 minutes (1) Sickle cell pain crisis Status: Acute Assessment and plan: Patient presents with 2 days of acute sickle cell pain crisis. Admit to med/ surg floor. IV fluid resuscitation. Continue home pain meds, add fentanyl patch. Transfuse 2 units of PRBCs. Current Visit: Yes (2) Leukocytosis Status: Acute Assessment and plan: Blood cultures. 1 g Rocephin IV. Current Visit: Yes (3) Hypertension Status: Acute Assessment and plan: Continue home meds. Current Visit: Yes History of Present Illness Chief complaint: sickle cell crisis History of present illness: Mr. Patel is a 26 year old Afican [place] male with a past medical history significant for sickle cell anemia who presents to the ED tonight with complaints of acute pain which onset 2 days ago. 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 He attributes this, in addiction to admission of medical noncompliance, to the onset of his sickle cell crisis today. On exam, he is noticeably uncomfortable, refusing to lie down and rocking back and forth. He conversation is flighty, yet rational when questioned directly. He states that this pain is typical of a crisis for him. He also specifically requests 3mg of Dilaudid IV plus 50mg of Benadryl IV, stating this is what "works" for him. The patient's vitals are stable with the exception of tachycardia. Lab work reveals WBC 25.2, hemoglobin 6.9, hematocrit 18.7, percent reticulocytes 26.1, total bilirubin 5.20, AST 44. Urine drug screen positive for opiates. Case has been discussed with Dr. Brady, ER physician, and Dr. Longo, admitting physician, and the patient will be admitted to the hospital medicine service for further evaluation and treatment. He is a full code. His home meds have been reconciled and reviewed. Home Medications Medication Instructions Recorded Confirmed Type Fluticasone/Salmeterol 250-50 1 puff INH BID #1 diskus 01/26/16 11/08/16 Rx [Advair 250-50] Folic Acid Tab 1 mg PO BID #60 tablet 01/26/16 11/08/16 Rx Hydroxyurea [Hydrea] 2,000 mg PO BEDTIME #120 capsule 01/26/16 11/08/16 Rx Oxycodone HCl/Acetaminophen 1 each PO Q4-6H PRN #60 tablet 05/14/16 11/08/16 Rx [Percocet 10-325 mg Tablet] Lisinopril 20 mg PO DAILY 09/12/16 11/08/16 History Morphine Sulfate [Morphine Sulfate 30 mg PO DAILY 09/12/16 11/08/16 History ER] Allergies Allergy/AdvReac Type Severity Reaction Status Date / Time Seafood Allergy Intermediate RASH Verified 11/23/16 03:08 ondansetron Allergy ITCHING Verified 11/23/16 03:08 [From Zofran (as hydrochloride)] promethazine [From Phenergan] Allergy HIVES Verified 11/23/16 03:08 Medical,Surgical,& Family Hx - Medical History Cardio: History of: Congenital Heart Disease Respiratory: History of: Bronchitis Gastrointestinal: History of: GI Problems (spleen removed) Musculoskeletal: History of: Musculoskeletal Problems (joint pain with sickle cell crisis) No history of: Amputation Hematology: History of: Anemia, Sickle Cell Disease - Surgical History Cardiac Surgeries: Patient Denies: Cardiac Catheterization Thoracic Surgeries: Patient denies;: Organ Transplant, Lobectomy HEENT Surgeries: Surgical HX of: Tonsilectomy & Adenoidectomy Abdominal Surgeries: Surgical HX of: Abdominal Surgery (spleenectomy), Hernia Repair, Splenectomy Reproductive Surgeries: Patient denies;: Genitourinary Surgery - Family History Family History: Reports;: Family Cancer - Social History Smoking Status: Current some day smoker (4-5 cigarettes daily) Have you smoked in the last 12 months: Yes Time spent discussing smoking cessation with patient: 3 to 10 minutes Frequency of Alcohol Use: Occasionally Type of Drug Use: None Marital Status: Single Lives With:: Significant Other Functional capacity: independent ambulation 12 point system: reviewed and no additional remarkable complaints except as stated Exam - Constitutional Vitals: Period Temp Pulse Resp BP Sys/Wheeler Pulse Ox Last 24 Hr 99.0 F-99.0 F 102-102 22-22 158-158/94-94 89 Exam: General appearance: normal weight, acute sickle cell crisis, disheveled - Head Head exam: Present: normocephalic, atraumatic - Eye Eye exam: Present: EOMI. Absent: conjunctival injection, nystagmus Pupils: Present: JOSE G, normal accommodation - ENT ENT exam: Present: normal exam, normal external ear exam - Neck Neck exam: Present: normal inspection. Absent: lymphadenopathy, tenderness, thyromegaly - Respiratory Respiratory exam: Present: clear to auscultation bilaterally. Absent: rales, rhonchi, wheezes - Cardiovascular Cardiovascular exam: Present: regular rate and rhythm. Absent: carotid bruit, gallop, rubs - GI/Abdominal GI/Abdominal exam: Present: normal bowel sounds. Absent: ascites, distended, mass - Extremities Exam Extremities exam: Present: normal inspection, normal capillary refill. Absent: edema - Back Exam Back exam: Absent: CVA tenderness (L), CVA tenderness (R) - Neurological Exam Neurological exam: Present: alert, oriented X3, CN II-XII intact, normal reflexes - Psychiatric Psychiatric exam: Present: mild agitation, conversation is rational - Skin Skin exam: Present: normal color, warm, dry Results - Labs CBC & BMP: 11/23/16 03:27 11/23/16 03:27 Sepsis - Sepsis Classification of Sepsis: Sepsis - Physical Exam Physical Exam: Patient is tachycardic with heart rate greater than 100, tachycardic with respiratory rate 22, white count 25.2. - Physical Exam Respiratory exam: clear to auscultation bilaterally Capillary Refill: Less Than 3 Seconds Peripheral pulses: Radial (L): 2+, Radial (R): 2+, Dorsalis Pedis (L) PM: 2+, Dorsalis Pedis (R) PM: 2+ Cardiovascular exam: tachycardia Skin exam: normal color
[2016-11-23 04:44] LABS: Anisocytosis 3+; Elliptocytes Few; Hypochromasia 2+; Macrocytosis 2+; Microcytosis 1+; Ovalocytes 1+; Poikilocytosis 3+; Polychromasia 1+; Sickle Cells 2+; Target Cells 1+
[2016-11-23] MEDS: cefTRIAXone 1,000 MG in SODIUM CHLORIDE 0.9% 100 ML IV SCH (05:07)
[2016-11-23] MEDS: LACTATED RINGERS 1,000 ML IV SCH ×3 (05:08→18:18)
[2016-11-23] MEDS: oxyCODONE/ACETAMINOPHEN 5-325 MG TABLET PO PRN ×3 (05:08→20:56)
[2016-11-23] MEDS ORDERED: PNEUMOCOCCAL VACCINE (13 VALENT) 0.5 ML SYRINGE IM ONE (05:51)
[2016-11-23] MEDS ORDERED: fentaNYL 25 MCG/HR PATCH TRANSDERM SCH (09:00)
[2016-11-23] MEDS: MORPHINE ER 30 MG TABLET PO SCH (09:42)
[2016-11-23] MEDS: ENOXAPARIN 40 MG/0.4 ML SYRINGE SUBCUT SCH (09:42)
[2016-11-23] MEDS: PANTOPRAZOLE 40 MG TABLET PO SCH (09:42)
[2016-11-23] MEDS: FLUTICASONE/SALMETEROL 250-50 DISKUS 14 DOSE INH SCH ×2 (09:42→22:06)
[2016-11-23] MEDS: LISINOPRIL 20 MG TABLET PO SCH (09:42)
[2016-11-23] MEDS: FOLIC ACID 1 MG TABLET PO SCH ×2 (09:42→20:58)
--- NOTE | 2016-11-23 10:28 | XRay Report ---
History: Shortness of breath Date: 11/23/2016 Study: Chest x-ray AP portable Comparison exam: October 14, 2016 The cardiac silhouette is borderline prominent. There is no mediastinal mass. The pulmonary vasculature is not engorged. The lungs are clear except for some mild platelike subsegmental atelectasis in the right lung base. There is no gross pleural effusion. Osseous structures are similar. Impression: Mild platelike subsegmental atelectasis right lung base. No definite acute process PROCEDURE INTERPRETED AT [facility] DEPARTMENT OF RADIOLOGY Final Report Signed by: Dr. Janet Jacobson
[2016-11-23] MEDS ORDERED: HYDROmorphone 2 MG/1 ML VIAL IV PRN (10:31)
[2016-11-23] MEDS ORDERED: diphenhydrAMINE CAP 50 MG CAPSULE ONE (10:37)
[2016-11-23] MEDS: diphenhydrAMINE CAP 50 MG CAPSULE PO PRN ×2 (10:38→20:58)
[2016-11-23] MEDS ORDERED: HYDROmorphone 2 MG/1 ML VIAL IV ONE (11:41)
[2016-11-23] MEDS: HYDROmorphone 2 MG/1 ML VIAL IV PRN ×3 (14:41→22:05)
--- NOTE | 2016-11-23 15:35 | Hospitalist Progress Note ---
Assessment and Plan (1) Anemia Status: Chronic Assessment and plan: 2 units of packed red blood cells currently being administered, recheck H&H upon completion and CBC in a.m. Current Visit: No Qualifiers: Anemia type: other cause Other causes of anemia: chronic disease, other Qualified Code(s): D63.8 - Anemia in other chronic diseases classified elsewhere (2) chronic pain Status: Acute Current Visit: No (3) Sickle cell pain crisis Status: Acute Assessment and plan: Morphine 2 mg IV every 4 was discontinued and replaced with Dilaudid 2 mg IV every 6 hours. Patient was given a one-time dose of Dilaudid 1 mg IV before administration of blood due to stated excessive pain. Dilaudid schedule was changed again to 2 mg IV every 4 hours. Current Visit: Yes (4) Leukocytosis Status: Acute Assessment and plan: Due to stress reaction from sickle cell crisis, check CBC in a.m. patient is also on Rocephin 1 g every 24 hours cultures pending. Current Visit: Yes Hospitalist: Subjective Interval history: Patient is a sickle cell patient who is well-known to the inpatient service as well as the other [facility] for coming in and pain crisis seeking pain management. Resented to the [facility] ER last night with increased white count and decreased H&H. Pain medicines have been administered and 2 units of blood ordered. Patient is frequently missing from room and nursing staff has trouble locating him at times. Nursing staff cannot find him when his blood was ready to be administered. Yet, when he comes back to the room he complains of not having enough pain control. Fentanyl patch was placed earlier this morning and now the patient claims it fell off and he cannot find it. Patient continues to be rude to nursing staff and very demanding to providers. We are very compassionate towards this patient's pain crisis will not tolerate disrespect from patients towards staff and providers. We have received several more calls from the nurses station since my exam stating the patient has left his room, even one time with blood hanging from the IV pole. Patient is very demanding and requires more resources then should be allocated towards one patient. Long discussion was had with patient about personal responsibility and the fact that he needs to follow-up with his cell specialist and be compliant with his chronic medications to prevent future pain crisis. Patient does not voice understanding and insists that it is the staff's fault in each facility that he is admitted to. Exam - Constitutional Vitals: Period Temp Pulse Resp BP Sys/Wheeler Pulse Ox Last 24 Hr 97.9 F-99.0 F 87-102 14-22 137-160/78-97 89-95 General appearance: normal weight - Head Head exam: Present: normal inspection - Eye Eye exam: Present: EOMI Pupils: Present: JOSE G - Respiratory Respiratory exam: Present: clear to auscultation bilaterally - Cardiovascular Cardiovascular exam: Present: regular rate and rhythm - GI/Abdominal GI/Abdominal exam: Present: normal bowel sounds, soft - Neurological Exam Neurological exam: Present: alert, oriented X3 - Psychiatric Psychiatric exam: Present: normal affect, agitated - Skin Skin exam: Present: normal color, warm Results - Labs CBC & BMP: 11/23/16 03:27 11/23/16 03:27
[2016-11-23] MEDS ORDERED: HYDROXYUREA 500 MG CAPSULE PO SCH (21:00)
[2016-11-24] MEDS: oxyCODONE/ACETAMINOPHEN 5-325 MG TABLET PO PRN (00:47)
[2016-11-24] MEDS: HYDROmorphone 2 MG/1 ML VIAL IV PRN ×3 (01:43→09:00)
[2016-11-24] MEDS: LACTATED RINGERS 1,000 ML IV SCH (02:26)
[2016-11-24] MEDS: cefTRIAXone 1,000 MG in SODIUM CHLORIDE 0.9% 100 ML IV SCH ×2 (05:29→05:36)
[2016-11-24 05:58] LABS: Basophils # 0.1 10*3/uL (0.0-0.2); Basophils % 0.2 % (0.0-0.8); Eosinophils # 0.9 10*3/uL (0.0-0.87); Hematocrit 21.1 VOL% (42.0-52.0); Hemoglobin 7.5 GM/DL (14.0-18.0); Immature Granulocytes % 0.7 %; Immature Granulocytes Absolute 0.16 #; Lymphocytes # 10.1 10*3/uL (1.4-4.0); Lymphocytes % 44.7 % (21.2-54.2); Mean Corpuscular HGB Conc 35.5 GM/DL (32-36); Mean Corpuscular Hemoglobin 31 PG (27-34); Mean Corpuscular Volume 86.8 FL (87-102); Mean Platelet Volume 9.8 FL (9.6-12.0); Monocytes # 1.6 10*3/uL (0.11-0.8); Monocytes % 7.2 % (1.7-12.7); NRBC # 0.19 10*3/uL; Neutrophils # 9.7 10*3/uL (1.4-7.4); Neutrophils % 43.2 % (38.7-73.9); Platelet Count 392 T/CUMM (130-400); Red Blood Count 2.43 MC/CUMM (3.8-5.5); Red Cell Distribution Width 26.7 % (9.3-17.3); White Blood Count 22.5 T/CUMM (4-12)
[2016-11-24 06:49] LABS: Calcium 9.5 MG/DL (8.5-10.1); Magnesium 1.9 MG/DL (1.8-2.4); Osmolality,Calculated 278.4 MOS/KG (273-304); Potassium 4.4 MMOL/L (3.5-5.1)
[2016-11-24 07:12] LABS: Elliptocytes Few; Eosinophils 2 % (0-10); Hypochromasia 1+; Lymphocytes 48 % (20-55); Macrocytosis 1+; Nucleated Red Blood Cells 2 (0-5); Pappenheimer Bodies Slight; Platelet Estimate Adequate; Polychromasia 1+; Segmented Neutrophils 45 % (50-85); Sickle Cells Few; Total Cells Counted 100
[2016-11-24 07:13] LABS: Howell-Jolly Bodies Slight
[2016-11-24] MEDS: FOLIC ACID 1 MG TABLET PO SCH (07:53)
[2016-11-24] MEDS: PANTOPRAZOLE 40 MG TABLET PO SCH (07:54)
[2016-11-24] MEDS: LISINOPRIL 20 MG TABLET PO SCH (07:54)
[2016-11-24] MEDS: MORPHINE ER 30 MG TABLET PO SCH (07:55)
[2016-11-24] MEDS: FLUTICASONE/SALMETEROL 250-50 DISKUS 14 DOSE INH SCH (08:02)
[2016-11-24] MEDS: ENOXAPARIN 40 MG/0.4 ML SYRINGE SUBCUT SCH (08:02)
--- NOTE | 2016-11-24 08:03 | Discharge Summary ---
Hospital Course - Hospital Course Hospital Course: 26-year-old -[place] male with a history of sickle cell admitted for sickle cell crisis. Patient was given IV Dilaudid. Patient reports his pain is better today and is ready for discharge. Patient has had multiple admissions for sickle cell crisis. He was supposed to see Dr. Welch for pain management but he is no longer seeing him due to termination. Patient does not have a regular physician as they cannot find anybody he would take him. His hemoglobin on admission was 6.9. He was given 2 units packed red blood cells and his hemoglobin has come up to 7.5. No evidence of infection was found. He chronically has an elevated white count. Patient will be discharged home today on Percocet and morphine. I informed him he needed to find a primary care physician who could care for him. Patient sees a specialist in a mobile. - Time spent with patient Time with patient DS: Less than 30 minutes Discharge Plan - Discharge Data Disposition: Disch To Home/Self Care Condition at Discharge: Stable Discharge Diet: regular diet Activity: resume usual activities as tolerated Hygiene: no restrictions Weight Bearing at Discharge: full weight bearing Driving: other (not while on narcotics) - Discharge Medications New Oxycodone HCl/Acetaminophen [Percocet 10-325 mg Tablet] 1 each PO Q6H #45 tablet Continue Fluticasone/Salmeterol 250-50 [Advair 250-50] 1 puff INH BID #1 diskus Folic Acid Tab 1 mg PO BID #60 tablet Hydroxyurea [Hydrea] 2,000 mg PO BEDTIME #120 capsule Lisinopril 20 mg PO DAILY Morphine Sulfate [Morphine Sulfate ER] 30 mg PO DAILY #30 Discontinued Oxycodone HCl/Acetaminophen [Percocet 10-325 mg Tablet] 1 each PO Q4-6H PRN # 60 tablet PRN Reason: Pain - Follow Up or Referral - Forms/Instructions Exam - Constitutional Vitals: Period Temp Pulse Resp BP Sys/Wheeler Pulse Ox Last 24 Hr 96.9 F-98.6 F 81-97 16-21 110-160/62-97 91-98 General appearance: normal weight, no acute distress - Respiratory Respiratory exam: Present: clear to auscultation bilaterally. Absent: rhonchi, wheezes - Cardiovascular Cardiovascular exam: Present: regular rate and rhythm. Absent: systolic murmur - GI/Abdominal GI/Abdominal exam: Present: normal bowel sounds, soft. Absent: tenderness - Extremities Exam Extremities exam: Present: normal inspection, normal capillary refill Discharge Results Procedures and tests throughout hospitalization: Pending Orders 11/23/16 08:27 Blood Culture Stat 11/25/16 04:00 LDH [Lactate Dehydrogenase] IN AM Reticulocyte Count IN AM Labs on day of discharge: Labs from last 24 hours 11/24/16 11/24/16 11/24/16 05:25 05:25 05:25 WBC RBC Hgb Hct MCV MCH MCHC RDW Plt Count MPV Neut % (Auto) Lymph % (Auto) [place] % (Auto) Eos % (Auto) Baso % (Auto) Neut # (Auto) Lymph # (Auto) [place] # (Auto) Eos # (Auto) Baso # (Auto) Total Counted Immature Gran % Nucleated RBC % Immature Gran # Segmented Neutrophils Lymphocytes Monocytes Eosinophils Nucleated RBCs Nucleated RBCs # Platelet Estimate Polychromasia Hypochromasia Macrocytosis Pappenheimer Bodies Sickle Cells High-[place] Bodies Elliptocytes Morphology Comment Absolute Retic 0.6 Percent Retic > 26.1 H Retic Hgb Equivalent 29.1 Sodium 140 Potassium 4.4 Chloride 105 Carbon Dioxide 27 Anion Gap 12.4 BUN 13 Creatinine 0.90 GFR Calculation 171 BUN/Creatinine Ratio 14.00 Glucose 91 Calculated Osmolality 278.4 Calcium 9.5 Magnesium 1.9 Lactate Dehydrogenase 484 H Blood Type Antibody Screen Crossmatch 11/24/16 11/23/16 05:25 04:00 WBC 22.5 H RBC 2.43 L Hgb 7.5 L Hct 21.1 L MCV 86.8 L MCH 31 MCHC 35.5 RDW 26.7 H Plt Count 392 MPV 9.8 Neut % (Auto) 43.2 Lymph % (Auto) 44.7 [place] % (Auto) 7.2 Eos % (Auto) 4.0 Baso % (Auto) 0.2 Neut # (Auto) 9.7 H Lymph # (Auto) 10.1 H [place] # (Auto) 1.6 H Eos # (Auto) 0.9 H Baso # (Auto) 0.1 Total Counted 100 Immature Gran % 0.7 Nucleated RBC % 0.8 Immature Gran # 0.16 Segmented Neutrophils 45 L Lymphocytes 48 Monocytes 5 Eosinophils 2 Nucleated RBCs 2 Nucleated RBCs # 0.19 Platelet Estimate Adequate Polychromasia 1+ Hypochromasia 1+ Macrocytosis 1+ Pappenheimer Bodies Slight Sickle Cells Few High-[place] Bodies Slight Elliptocytes Few Morphology Comment Absolute Retic Percent Retic Retic Hgb Equivalent Sodium Potassium Chloride Carbon Dioxide Anion Gap BUN Creatinine GFR Calculation BUN/Creatinine Ratio Glucose Calculated Osmolality Calcium Magnesium Lactate Dehydrogenase Blood Type AB POSITIVE Antibody Screen Negative Crossmatch See Detail DS: Provider Date of admission: 11/23/16 04:02 Primary care physician: . No PCP Attending physician on admission: Mahogany Longo MD Discharging clinician: Skyla Aguilar MD
[2016-11-24 14:52] VITALS: BP 156/92
== END 2016-11-24 10:20 | disposition home or self-care (01) | DRG 812 ==
LOC: N.ED 02:59 → SUATTDRO 04:02 → N.EDINP 04:02 → N.5E 04:24
PROVIDERS: ADMIT Family Medicine; ATTEND Internal Medicine

== ENCOUNTER 2017-01-17 21:56 | Inpatient (IN) ==
[2017-01-17] MEDS ORDERED: MEPERIDINE 25 MG/1 ML VIAL IV STA (22:18)
[2017-01-17] MEDS ORDERED: SODIUM CHLORIDE 0.9% 1,000 ML IV STA (22:18)
[2017-01-17] MEDS ORDERED: METOCLOPRAMIDE 10 MG/2 ML VIAL IV STA (22:22)
--- NOTE | 2017-01-17 22:24 | Emergency Department Note ---
Arrival - Arrival Chief Complaint: Sickle Cell Stated Complaint: sickle cell pain ED Nursing Triage Note: C/O BILATERAL PAIN FROM SHOULDER TO ANKLES. ONSET TWO DAYS AGO Mode of Arrival: Ambulatory Limitations: No Limitations Source: Patient Time Seen by Provider: 01/17/17 22:18 - History of Present Illness HPI Narrative: This 26-year-old black male with sickle cell anemia presents once again with complaints of polyarthropathy pain and stiffness although he is quite athletic jumping around on the gurney without difficulty.. He states the pain is extreme and he cannot control at home. Denies any chills, fever, nausea, vomiting, dysuria, chest pain, hemoptysis, purulence, or any other indications of an inciting situation. Currently he is medically stable. Onset (ago): day(s) (Patient presents 2 days post onset of symptoms) Allergies/Adverse Reactions: Allergies Allergy/AdvReac Type Severity Reaction Status Date / Time Seafood Allergy Intermediate RASH Verified 11/23/16 03:08 ondansetron Allergy ITCHING Verified 11/23/16 03:08 [From Zofran (as hydrochloride)] promethazine [From Phenergan] Allergy HIVES Verified 11/23/16 03:08 Home Medications: Home Medications Medication Instructions Recorded Confirmed Type Fluticasone/Salmeterol 250-50 1 puff INH BID #1 diskus 01/26/16 11/08/16 Rx [Advair 250-50] Folic Acid Tab 1 mg PO BID #60 tablet 01/26/16 11/08/16 Rx Hydroxyurea [Hydrea] 2,000 mg PO BEDTIME #120 capsule 01/26/16 11/08/16 Rx Lisinopril 20 mg PO DAILY 09/12/16 11/08/16 History Morphine Sulfate [Morphine Sulfate 30 mg PO DAILY #30 11/24/16 Rx ER] Oxycodone HCl/Acetaminophen 1 each PO Q6H #45 tablet 11/24/16 Rx [Percocet 10-325 mg Tablet] Review of System - Review of System 12 point system: reviewed and no additional remarkable complaints except as stated - Review of System Constitutional: Present: as per HPI Musculoskeletal: Present: as per HPI Medical,Surgical,& Family Hx - Medical History Cardio: History of: Congenital Heart Disease Respiratory: History of: Bronchitis Gastrointestinal: History of: GI Problems (spleen removed) Musculoskeletal: History of: Musculoskeletal Problems (joint pain with sickle cell crisis) No history of: Amputation Hematology: History of: Anemia, Sickle Cell Disease - Surgical History Cardiac Surgeries: Patient Denies: Cardiac Catheterization Thoracic Surgeries: Patient denies;: Organ Transplant, Lobectomy HEENT Surgeries: Surgical HX of: Tonsilectomy & Adenoidectomy Abdominal Surgeries: Surgical HX of: Abdominal Surgery (spleenectomy), Hernia Repair, Splenectomy Reproductive Surgeries: Patient denies;: Genitourinary Surgery - Family History Family History: Reports;: Family Cancer - Social History Smoking Status: Current some day smoker Frequency of Alcohol Use: None Type of Drug Use: None Exam Physical Examination: GENERAL: Well developed, well nourished black male in no acute distress. HEENT: Normocephalic. No trauma. Moist mucous membranes. EOMI. PERRLA. ENT NML NECK: Supple. No adenopathy. CARDIAC: Regular. No murmurs. Heart rate 89 CHEST: Clear to auscultation. No respiratory distress. O2 sat 95% ABDOMEN: Soft. Nontender. Active bowel sounds. EXTREMITIES: No trauma. Normal ROM but complains of pain with actual movement to the range of motion of all large joints. No pedal edema. SKIN: No diaphoresis. No rash. NEURO: Alert. Neuro intact no focal deficits. Vital Signs: Vital Signs Temperature 98.1 F 01/17/17 23:47 Pulse Rate 72 01/17/17 22:16 Respiratory Rate 18 01/17/17 22:16 Blood Pressure 154/92 01/17/17 22:16 O2 Sat by Pulse Oximetry 95 01/17/17 22:05 Course - Reevaluation(s) Reevaluation #1: Discussed with patient back and forth whether or not he should be hospitalized but he is at a point where he usually has transfusions. For this reason he will be admitted for pain control and blood products. - Consultations Consultation #1: Discussed with hospitalist service who will admit for further evaluation treatment. Results - Labs CBC & BMP: 01/17/17 22:24 01/17/17 22:24 Labs: I have reviewed the laboratory and noted the low hematocrit, elevated white blood cell count, and elevated reticulocyte count and LDH. - Diagnostic Findings Procedure: Chest x-ray: image reviewed by me, report reviewed by me (Normal chest with no evidence of interval change from previous films.) Disposition Clinical Impression: Sickle cell crisis Case discussed with: patient, patient's family Disposition: Still a Patient Condition: Guarded Time of Disposition: 00:47
[2017-01-17] MEDS ORDERED: METOCLOPRAMIDE 10 MG/2 ML VIAL ONE (22:30)
[2017-01-17] MEDS ORDERED: MEPERIDINE 25 MG/1 ML VIAL ONE (22:30)
[2017-01-17 22:35] LABS: Basophils # 0.1 10*3/uL (0.0-0.2); Basophils % 0.3 % (0.0-0.8); Eosinophils # 1.1 10*3/uL (0.0-0.87); Eosinophils % 4.7 % (0.00-10.9); Hematocrit 19.5 VOL% (42.0-52.0); Immature Granulocytes % 0.4 %; Immature Granulocytes Absolute 0.09 #; Lymphocytes # 10.4 10*3/uL (1.4-4.0); Lymphocytes % 45.6 % (21.2-54.2); Mean Corpuscular HGB Conc 35.9 GM/DL (32-36); Mean Corpuscular Hemoglobin 34 PG (27-34); Mean Corpuscular Volume 94.2 FL (87-102); Mean Platelet Volume 9.8 FL (9.6-12.0); Monocytes # 1.9 10*3/uL (0.11-0.8); Monocytes % 8.3 % (1.7-12.7); NRBC # 0.08 10*3/uL; Neutrophils # 9.3 10*3/uL (1.4-7.4); Neutrophils % 40.7 % (38.7-73.9); Platelet Count 412 T/CUMM (130-400); Red Blood Count 2.07 MC/CUMM (3.8-5.5); Red Cell Distribution Width 21.7 % (9.3-17.3); White Blood Count 22.9 T/CUMM (4-12)
[2017-01-17] MEDS ORDERED: HYDROmorphone 2 MG/1 ML VIAL IV STA ×3 (22:49→23:43)
[2017-01-17] MEDS ORDERED: HYDROmorphone 2 MG/1 ML VIAL ONE ×3 (22:52→23:45)
[2017-01-17 22:55] LABS: Albumin 4.5 G/DL (3.4-5.0); Bilirubin,Total 3.3 MG/DL (0.2-1.0); Calcium 9.3 MG/DL (8.5-10.1); Osmolality,Calculated 281.4 MOS/KG (273-304); Potassium 4.3 MMOL/L (3.5-5.1); Total Protein 7.2 G/DL (6.4-8.3)
[2017-01-17] MEDS ORDERED: cefTRIAXone 1,000 MG in SODIUM CHLORIDE 0.9% 100 ML IV STA (23:11)
[2017-01-17] MEDS ORDERED: cefTRIAXone 1,000 MG VIAL ONE (23:26)
[2017-01-18 00:03] LABS: Eosinophils 3 % (0-10); Lymphocytes 50 % (20-55); Metamyelocytes 1 %; Platelet Estimate Increased; Segmented Neutrophils 41 % (50-85); Total Cells Counted 100
[2017-01-18 00:04] LABS: Anisocytosis 3+; Elliptocytes 1+; Hypochromasia 2+; Macrocytosis 2+; Microcytosis 1+; Ovalocytes 2+; Sickle Cells 1+; Target Cells 2+
[2017-01-18 00:05] LABS: Poikilocytosis 2+; Polychromasia 2+
[2017-01-18 00:14] LABS: Apearance,Urine CLEAR (Clear); Bacteria,Urine Occasional /HPF (Few); Bilirubin,Urine Negative (Negative); Blood, Urine Small mg/dL (Negative); Glucose,Urine (UA) Negative (Negative); Ketones,Urine Negative (Negative); Mucus,Urine Occasional /LPF (Occasional); Nitrite,Urine Negative (Negative); Protein,Urine Negative; Urine Color Yellow (Yellow); Urine Specific Gravity 1.006 (1.001-1.035); Urine Urobilinogen < 2.0 EU/DL (0.2-1.0); WBC,Urine <1 /HPF (0-6)
[2017-01-18] MEDS ORDERED: DOCUSATE SODIUM 100 MG CAPSULE PO PRN (01:47)
[2017-01-18] MEDS: SODIUM CHLORIDE 0.9% 1,000 ML IV SCH ×3 (01:59→15:24)
[2017-01-18] MEDS: diphenhydrAMINE 50 MG/1 ML VIAL IV PRN ×4 (02:04→19:52)
[2017-01-18] MEDS: HYDROmorphone 2 MG/1 ML VIAL IV PRN ×8 (02:05→22:42)
--- NOTE | 2017-01-18 03:59 | Hospitalist History & Physical ---
Assessment and Plan - Time spent with patient Time spent with patient: Greater than 30 minutes Time spent discussing smoking cessation with patient: 3 to 10 minutes (1) Leukocytosis Status: Acute Assessment and plan: Patient will receive Rocephin 1 gram q12 hours. Blood cultures will be drawn and lab work will be monitored. Current Visit: No (2) Sickle cell pain crisis Status: Acute Assessment and plan: Patient will receive IV fluids, pain medicines, and oxygen. We will continue him on his current home medication regimen. Current Visit: No (3) Anemia Status: Chronic Assessment and plan: Will type and crossmatch patient for possible blood transfusion if Hgb drops below 7. Current Visit: No Qualifiers: Anemia type: other cause Other causes of anemia: chronic disease, other Qualified Code(s): D63.8 - Anemia in other chronic diseases classified elsewhere History of Present Illness Chief complaint: pain in shoulders, hips down to ankles History of present illness: Called to the ER for Mr. Patel who is a 26 year old male complaining of shoulder, leg pain to ankle pain that started two days ago. Patient has a history of sickle cell disease but is currently not followed by anyone. He obtains his medications from the ER and hospital admissions. He denies see any chronic pain management at this time. He also denies chest pain, shortness of breath, fever, palpitations but does admit to fatigue. In the ER, patient was given 1L NS and a totoal of 3.5mg of Dilaudid and 25mg of Demerol. His blood work revealed H/H 7/19, WBC 22, retic count of 23, LDH 437, bilirubin 3.3. Patient will be admitted into the hospital for continued IV fluids, oxygen, and pain management. He will be type and screened for possible blood transfusion and will receive Rocephin 1 gram for leukocytosis. While interviewing patient, he was very inquisitive of his pain regimen and asked if there would be any problems getting his pain medications. He was informed that we would treat his pain appropriately. Home Medications Medication Instructions Recorded Confirmed Type Fluticasone/Salmeterol 250-50 1 puff INH BID #1 diskus 01/26/16 01/18/17 Rx [Advair 250-50] Folic Acid Tab 1 mg PO BID #60 tablet 01/26/16 01/18/17 Rx Hydroxyurea [Hydrea] 2,000 mg PO BEDTIME #120 capsule 01/26/16 01/18/17 Rx Lisinopril 20 mg PO DAILY 09/12/16 01/18/17 History Morphine Sulfate [Morphine Sulfate 30 mg PO DAILY #30 11/24/16 01/18/17 Rx ER] Oxycodone HCl/Acetaminophen 1 each PO Q6H #45 tablet 11/24/16 01/18/17 Rx [Percocet 10-325 mg Tablet] Hydromorphone HCl [Dilaudid] 8 mg PO Q4-6H PRN 01/18/17 01/18/17 History Allergies Allergy/AdvReac Type Severity Reaction Status Date / Time Seafood Allergy Intermediate RASH Verified 11/23/16 03:08 ondansetron Allergy ITCHING Verified 11/23/16 03:08 [From Zofran (as hydrochloride)] promethazine [From Phenergan] Allergy HIVES Verified 11/23/16 03:08 Medical,Surgical,& Family Hx - Medical History Cardio: History of: Congenital Heart Disease Psychological: No history of: Psychiatric Problems Neurology: No history of: Neurological Problems Respiratory: History of: Bronchitis Renal: No history of: Renal Problems Genitourinary: No history of: Problems Gastrointestinal: History of: GI Problems (spleen removed) Musculoskeletal: History of: Musculoskeletal Problems (joint pain with sickle cell crisis) No history of: Amputation Hematology: History of: Anemia, Sickle Cell Disease - Surgical History Cardiac Surgeries: Patient Denies: Cardiac Catheterization Thoracic Surgeries: Patient denies;: Organ Transplant, Lobectomy HEENT Surgeries: Surgical HX of: Tonsilectomy & Adenoidectomy Abdominal Surgeries: Surgical HX of: Abdominal Surgery (spleenectomy), Hernia Repair, Splenectomy Reproductive Surgeries: Patient denies;: Genitourinary Surgery - Family History Family History: Reports;: Family Cancer - Social History Smoking Status: Current some day smoker Frequency of Alcohol Use: None Type of Drug Use: None Functional capacity: independent ambulation - Constitutional Constitutional: Present: fatigue. Absent: chills, fever(s) - EENT Nose, mouth and throat: Absent: sore throat - Cardiovascular Cardiovascular: Absent: chest pain at rest, chest pain with activity, diaphoresis, dyspnea, dyspnea on exertion - Respiratory Respiratory: Absent: cough, dyspnea, hemoptysis - Gastrointestinal Gastrointestinal: Absent: abdominal pain, diarrhea, nausea, vomiting - Genitourinary Genitourinary: Absent: difficulty urinating - Musculoskeletal Musculoskeletal: Present: arthralgias Exam - Constitutional Vitals: Period Temp Pulse Resp BP Sys/Wheeler Pulse Ox Last 24 Hr 98.1 F-98.5 F 72-89 18-20 154-162/83-92 89-95 General appearance: normal weight, no acute distress - Head Head exam: Present: normal inspection, normocephalic - Eye Eye exam: Present: EOMI, conjunctival injection Pupils: Present: JOSE G - ENT ENT exam: Present: normal exam - Neck Neck exam: Present: normal inspection - Respiratory Respiratory exam: Present: clear to auscultation bilaterally. Absent: accessory muscle use (Respirations even and non-labored. Symmetrical rise and fall of chest noted. ) - Cardiovascular Cardiovascular exam: Present: regular rate and rhythm - GI/Abdominal GI/Abdominal exam: Present: normal bowel sounds, soft. Absent: distended, firm - Extremities Exam Extremities exam: Present: normal inspection, normal capillary refill, full ROM - Back Exam Back exam: Present: normal inspection - Neurological Exam Neurological exam: Present: alert, oriented X3 (Answers questions appropriately. Makes good eye contact. ) - Psychiatric Psychiatric exam: Present: normal affect, normal mood - Skin Skin exam: Present: normal color, warm, dry Results - Labs CBC & BMP: 01/17/17 22:24 01/17/17 22:24 Lab Results: I have reviewed the past 24 hour labs - Diagnostic Findings Procedure: Chest x-ray: image reviewed by me (Negative)
[2017-01-18 06:32] LABS: Albumin 3.9 G/DL (3.4-5.0); Bilirubin,Total 2.9 MG/DL (0.2-1.0); Calcium 9.1 MG/DL (8.5-10.1); Osmolality,Calculated 278.4 MOS/KG (273-304); Potassium 4.2 MMOL/L (3.5-5.1); Total Protein 6.3 G/DL (6.4-8.3)
[2017-01-18 07:02] LABS: Basophils % 0.2 % (0.0-0.8); Eosinophils # 0.8 10*3/uL (0.0-0.87); Eosinophils % 3.9 % (0.00-10.9); Immature Granulocytes % 0.4 %; Immature Granulocytes Absolute 0.09 #; Lymphocytes % 48.5 % (21.2-54.2); Mean Corpuscular HGB Conc 35.3 GM/DL (32-36); Mean Corpuscular Hemoglobin 33 PG (27-34); Mean Corpuscular Volume 93.4 FL (87-102); Mean Platelet Volume 10.4 FL (9.6-12.0); Monocytes # 2.1 10*3/uL (0.11-0.8); NRBC # 0.07 10*3/uL; Neutrophils # 7.6 10*3/uL (1.4-7.4); Platelet Count 374 T/CUMM (130-400); Red Blood Count 1.82 MC/CUMM (3.8-5.5); Red Cell Distribution Width 20.6 % (9.3-17.3); White Blood Count 20.6 T/CUMM (4-12)
--- NOTE | 2017-01-18 07:20 | XRay Report ---
Exam: XR chest 2V Date: 01/18/2017 12:03 AM Indication: Shortness of breath Comparison: 11/23/2016 Technical: PA lateral Findings: The is at upper limits of normal. It has decreased in size compared to previous exam. No obvious infiltrates or effusions. Mediastinum bony structures are intact. Impression: 1. No acute cardiopulmonary pathology. PROCEDURE INTERPRETED AT [facility] DEPARTMENT OF RADIOLOGY Final Report Signed by: Dr. Ford Hernandez
[2017-01-18 08:03] LABS: Elliptocytes 1+; Eosinophils 2 % (0-10); Howell-Jolly Bodies Few; Hypochromasia 1+; Lymphocytes 41 % (20-55); Macrocytosis 1+; Nucleated Red Blood Cells 1 (0-5); Polychromasia Slight; Segmented Neutrophils 53 % (50-85); Sickle Cells 1+; Target Cells Slight; Total Cells Counted 100
[2017-01-18 08:04] LABS: Platelet Estimate Adequate
[2017-01-18] MEDS: PANTOPRAZOLE 40 MG TABLET PO SCH (08:04)
[2017-01-18] MEDS: FOLIC ACID 1 MG TABLET PO SCH ×2 (08:04→21:15)
[2017-01-18] MEDS: LISINOPRIL 20 MG TABLET PO SCH (08:04)
[2017-01-18] MEDS: cefTRIAXone 1,000 MG in SODIUM CHLORIDE 0.9% 100 ML IV SCH ×2 (08:06→21:16)
[2017-01-18] MEDS: ENOXAPARIN 40 MG/0.4 ML SYRINGE SUBCUT SCH (08:17)
[2017-01-18] MEDS ORDERED: SODIUM CHLORIDE 0.9% 250 ML IV PRN (10:42)
[2017-01-18] MEDS: FLUTICASONE/SALMETEROL 250-50 DISKUS 14 DOSE INH SCH ×2 (11:00→21:16)
[2017-01-18] MEDS ORDERED: HYDROmorphone 2 MG/1 ML VIAL IV ONE (12:10)
--- NOTE | 2017-01-18 15:24 | Hospitalist Progress Note ---
Hospitalist: Subjective Interval history: 26-year-old -Swedish male with history of sickle cell crisis. He reports that he still in pain but is not in any sort of distress. He ambulates in the halls quite frequently. Exam - Constitutional Vitals: Period Temp Pulse Resp BP Sys/Wheeler Pulse Ox Last 24 Hr 97.3 F-98.9 F 72-103 18-20 123-162/66-92 89-95 Exam: General: No Acute Distress HEENT: Normocephalic, atraumatic, Extra ocular movements intact Neck: Supple, No JVD Chest: Clear to auscultation B/L CV: S1 + S2 audible without murmur, gallop or rub Abd: soft, NT, Non-distended, BS + Ext: No edema Skin: No purpura, bruising or rash Rheumatologic: No Joint deformities Neurologic: Strength 5/5 all extremities, no gross sensory deficits Results - Labs CBC & BMP: 01/18/17 04:26 01/18/17 04:26 - Impressions Assessment and plan: Sickle cell painful crisis Status: Acute Assessment and plan: Patient is getting IV fluids, IV pain medicines, and oxygen. He is also on hydroxyurea and folic acid. Current Visit: No Sickle cell anemia Status: Acute Assessment and plan: Systemic hematocrit has dropped we will transfuse him with 2 units of packed RBCs 01/18 Current Visit: Yes Leukocytosis Status: Acute Assessment and plan: I suspect this is due to his crisis. We will continue IV Rocephin and stop it if there is no evidence of infection Current Visit: Yes Essential hypertension Status: Chronic Assessment and plan: Blood pressure controlled on lisinopril 20 mg will continue Current Visit: Yes DVT prophylaxis with Lovenox.
[2017-01-18] MEDS ORDERED: HYDROXYUREA 500 MG CAPSULE PO SCH (21:00)
[2017-01-19] MEDS: diphenhydrAMINE 50 MG/1 ML VIAL IV PRN ×3 (01:52→10:05)
[2017-01-19] MEDS: HYDROmorphone 2 MG/1 ML VIAL IV PRN ×4 (01:53→10:03)
[2017-01-19 05:51] LABS: Basophils # 0.1 10*3/uL (0.0-0.2); Basophils % 0.3 % (0.0-0.8); Eosinophils # 0.7 10*3/uL (0.0-0.87); Eosinophils % 2.8 % (0.00-10.9); Hematocrit 20.2 VOL% (42.0-52.0); Hemoglobin 7.3 GM/DL (14.0-18.0); Immature Granulocytes % 0.7 %; Immature Granulocytes Absolute 0.17 #; Lymphocytes # 8.7 10*3/uL (1.4-4.0); Lymphocytes % 35.5 % (21.2-54.2); Mean Corpuscular HGB Conc 36.1 GM/DL (32-36); Mean Corpuscular Hemoglobin 33 PG (27-34); Mean Corpuscular Volume 90.2 FL (87-102); Mean Platelet Volume 10.4 FL (9.6-12.0); Monocytes # 2.1 10*3/uL (0.11-0.8); Monocytes % 8.5 % (1.7-12.7); NRBC # 0.11 10*3/uL; Neutrophils # 12.8 10*3/uL (1.4-7.4); Neutrophils % 52.2 % (38.7-73.9); Platelet Count 403 T/CUMM (130-400); Red Blood Count 2.24 MC/CUMM (3.8-5.5); Red Cell Distribution Width 22.3 % (9.3-17.3); White Blood Count 24.4 T/CUMM (4-12)
[2017-01-19] MEDS: SODIUM CHLORIDE 0.9% 1,000 ML IV SCH ×2 (07:00→09:19)
[2017-01-19 07:12] LABS: Eosinophils 3 % (0-10); Hypochromasia 1+; Lymphocytes 31 % (20-55); Macrocytosis 1+; Nucleated Red Blood Cells 1 (0-5); Pappenheimer Bodies Few; Polychromasia Slight; Segmented Neutrophils 56 % (50-85); Sickle Cells 2+; Target Cells 1+; Total Cells Counted 100
[2017-01-19 07:13] LABS: Platelet Estimate Increased
[2017-01-19 08:24] VITALS: BP 148/96
[2017-01-19 08:51] LABS: Hematocrit 22.3 VOL% (42.0-52.0); Hemoglobin 8.1 GM/DL (14.0-18.0)
[2017-01-19] MEDS: FOLIC ACID 1 MG TABLET PO SCH (09:14)
[2017-01-19] MEDS: LISINOPRIL 20 MG TABLET PO SCH (09:14)
[2017-01-19] MEDS: PANTOPRAZOLE 40 MG TABLET PO SCH (09:14)
[2017-01-19] MEDS: ENOXAPARIN 40 MG/0.4 ML SYRINGE SUBCUT SCH (09:15)
[2017-01-19] MEDS: cefTRIAXone 1,000 MG in SODIUM CHLORIDE 0.9% 100 ML IV SCH (09:15)
[2017-01-19] MEDS: FLUTICASONE/SALMETEROL 250-50 DISKUS 14 DOSE INH SCH (09:19)
--- NOTE | 2017-01-19 10:01 | Discharge Summary ---
Hospital Course - Hospital Course Hospital Course: 26 year old male was admitted with sickle cell crisis with pain involving shoulder, leg pain to ankle pain. Patient has a history of sickle cell disease but is currently not followed by anyone. He was getting his pain medications from the ER and hospital admissions. He denied see any chronic pain management at this time. He also denied chest pain, shortness of breath, fever, palpitations. In the ER, patient was given 1L NS and a totoal of 3.5 mg of Dilaudid and 25mg of Demerol. His blood work revealed H/H 7/19, WBC 22, retic count of 23, LDH 437, bilirubin 3.3. Patient was admitted into the hospital for continued IV fluids, oxygen, and pain management. He received 2 units of packed RBCs for sickle cell anemia due to hemolysis, posttransfusion hemoglobin and hematocrit are better, his pain is significantly improved. He is being discharged home in improved and stable condition. He was encouraged to get a primary care physician as well as a pain specialist so that he can get better care after discharge from the hospital. He was given a prescription for Percocet 10 mg 30 tablets for as needed home use. - Time spent with patient Time with patient DS: Less than 30 minutes Diagnosis - Discharge Diagnosis (1) Sickle cell pain crisis Status: Resolved Discharge Plan - Discharge Data Condition at Discharge: Stable Discharge Diet: advance to your usual diet Activity: resume usual activities as tolerated Hygiene: no restrictions Weight Bearing at Discharge: full weight bearing Driving: no restrictions Contact your physician if you experience:: pain uncontrolled by pain medications - Discharge Medications Continue Fluticasone/Salmeterol 250-50 [Advair 250-50] 1 puff INH BID #1 diskus Folic Acid Tab 1 mg PO BID #60 tablet Hydroxyurea [Hydrea] 2,000 mg PO BEDTIME #120 capsule Lisinopril 20 mg PO DAILY Oxycodone HCl/Acetaminophen [Percocet 10-325 mg Tablet] 1 each PO Q6H #30 tablet Discontinued Morphine Sulfate [Morphine Sulfate ER] 30 mg PO DAILY #30 Hydromorphone HCl [Dilaudid] 8 mg PO Q4-6H PRN PRN Reason: Pain - Follow Up or Referral - Forms/Instructions Exam - Constitutional Vitals: Period Temp Pulse Resp BP Sys/Wheeler Pulse Ox Last 24 Hr 97.2 F-98.9 F 77-103 16-20 123-148/66-96 90-98 Exam: General: No Acute Distress HEENT: Normocephalic, atraumatic, Extra ocular movements intact Neck: Supple, No JVD Chest: Clear to auscultation B/L CV: S1 + S2 audible without murmur, gallop or rub Abd: soft, NT, Non-distended, BS + Ext: No edema Skin: No purpura, bruising or rash Rheumatologic: No Joint deformities Neurologic: Strength 5/5 all extremities, no gross sensory deficits Discharge Results Procedures and tests throughout hospitalization: Pending Orders 01/17/17 22:39 Blood Culture Stat 01/18/17 15:15 Urine Culture Routine Labs on day of discharge: Labs from last 24 hours 01/19/17 01/19/17 01/18/17 08:45 04:55 04:32 WBC 24.4 H RBC 2.24 L D Hgb 8.1 L 7.3 L D Hct 22.3 L 20.2 L MCV 90.2 MCH 33 MCHC 36.1 H RDW 22.3 H Plt Count 403 H MPV 10.4 Neut % (Auto) 52.2 Lymph % (Auto) 35.5 [place] % (Auto) 8.5 Eos % (Auto) 2.8 Baso % (Auto) 0.3 Neut # (Auto) 12.8 H Lymph # (Auto) 8.7 H [place] # (Auto) 2.1 H Eos # (Auto) 0.7 Baso # (Auto) 0.1 Total Counted 100 Immature Gran % 0.7 Nucleated RBC % 0.5 Immature Gran # 0.17 Segmented Neutrophils 56 Lymphocytes 31 Monocytes 10 Eosinophils 3 Nucleated RBCs 1 Nucleated RBCs # 0.11 Platelet Estimate Increased Immature Plt Fraction 0.0 Polychromasia Slight Hypochromasia 1+ Macrocytosis 1+ Pappenheimer Bodies Few Sickle Cells 2+ Target Cells 1+ Blood Type Cancelled Antibody Screen Cancelled Crossmatch See Detail Blood Bank Comment Cancelled Preliminary micro results at discharge 01/17/17 23:55 Urine Culture - Preliminary Urine,Clean Catch No Growth at 24 hours. 01/17/17 22:39 Blood Culture - Preliminary Blood No growth at 1 day 01/17/17 22:24 Blood Culture - Preliminary Blood No growth at 1 day DS: Provider Date of admission: 01/18/17 00:26 Primary care physician: . No PCP Attending physician on admission: Shani Caldwell MD Discharging clinician: Alesia Mccloud MD
== END 2017-01-19 13:01 | disposition home or self-care (01) | DRG 812 ==
LOC: N.ED 21:56 → SUATTDRO 01-18 00:26 → N.EDINP 01-18 00:26 → N.4E 01-18 01:20
PROVIDERS: ADMIT Internal Medicine; ATTEND Hospitalist

== ENCOUNTER 2017-02-07 00:28 | Inpatient (IN) ==
--- NOTE | 2017-02-07 01:33 | Emergency Department Note ---
IAlbert Gwan, am scribing for, and in the presence of, Giovana Brady DO 01:18 . IJose Antonio Debra, DO, personally performed the services described in this documentation, ascribed by Monie Price in my presence, and it is both accurate and complete . Arrival - Arrival Chief Complaint: Sickle Cell Stated Complaint: sicle cell crisis pain ED Nursing Triage Note: AMB TO ER WITH C/O SICKLE CELL PAIN FOR THE PAST SEVERAL DAYS BUT BECAME WORSE LAST PM AROUND 1800. STATES PAIN IS IN BACK AND HIS KNEES 9/10 SCALE. Mode of Arrival: Ambulatory Limitations: No Limitations Source: Patient, Old Records Reviewed, RN Notes Reviewed Time Seen by Provider: 02/07/17 01:06 - History of Present Illness HPI Narrative: Patient is a 26 y/o male, with a hx of sickle cell anemia, who presents to the ED with a c/o pain located at top of bilateral shoulders, bilateral ankles, back and bilateral knees with an onset 2 days ago. Patient has been present in ED several time for the same reason. Patient rates his pain as a 9 out of 10 and stated that since onset his sxs have worsened prompting his visit to the ED tonight for further evaluation. Patient denies having a PCP or taking any medication of a daily basis to help control sickle cell. During exam, patient was very anxious and fidgety. No other problems/complaints reported in ED. Onset (ago): day(s) Consistency: constant Severity: moderate Allergies/Adverse Reactions: Allergies Allergy/AdvReac Type Severity Reaction Status Date / Time Seafood Allergy Intermediate RASH Verified 02/07/17 00:53 ondansetron Allergy ITCHING Verified 02/07/17 00:53 [From Zofran (as hydrochloride)] promethazine [From Phenergan] Allergy HIVES Verified 02/07/17 00:53 Home Medications: Home Medications Medication Instructions Recorded Confirmed Type Fluticasone/Salmeterol 250-50 1 puff INH BID #1 diskus 01/26/16 02/07/17 Rx [Advair 250-50] Folic Acid Tab 1 mg PO BID #60 tablet 01/26/16 02/07/17 Rx Hydroxyurea [Hydrea] 2,000 mg PO BEDTIME #120 capsule 01/26/16 02/07/17 Rx Lisinopril 20 mg PO DAILY 09/12/16 02/07/17 History Oxycodone HCl/Acetaminophen 1 each PO Q6H #30 tablet 01/19/17 02/07/17 Rx [Percocet 10-325 mg Tablet] Review of System - Review of System 12 point system: reviewed and no additional remarkable complaints except as stated - Review of System Constitutional: Absent: chills, fever Eyes: Absent: discharge, pain Musculoskeletal: Present: as per HPI, back pain, other (pain to top of both shoulder, both knees and both ankles) Medical,Surgical,& Family Hx - Medical History Cardio: History of: Congenital Heart Disease Psychological: No history of: Psychiatric Problems Neurology: No history of: Neurological Problems Respiratory: History of: Bronchitis Renal: No history of: Renal Problems Genitourinary: No history of: Problems Gastrointestinal: History of: GI Problems (spleen removed) Musculoskeletal: History of: Musculoskeletal Problems (joint pain with sickle cell crisis) No history of: Amputation Hematology: History of: Anemia, Sickle Cell Disease - Surgical History Cardiac Surgeries: Patient Denies: Cardiac Catheterization Thoracic Surgeries: Patient denies;: Organ Transplant, Lobectomy HEENT Surgeries: Surgical HX of: Tonsilectomy & Adenoidectomy Abdominal Surgeries: Surgical HX of: Abdominal Surgery (spleenectomy), Hernia Repair, Splenectomy Reproductive Surgeries: Patient denies;: Genitourinary Surgery - Family History Family History: Reports;: Family Cancer - Social History Smoking Status: Current some day smoker Frequency of Alcohol Use: Occasionally Type of Drug Use: None Exam Vital Signs: Vital Signs Temperature 98.5 F 02/07/17 00:47 Pulse Rate 89 02/07/17 00:47 Respiratory Rate 20 02/07/17 00:47 Blood Pressure 155/95 02/07/17 00:47 O2 Sat by Pulse Oximetry 94 L 02/07/17 00:47 - General General appearance: alert, in no apparent distress, anxious, other (patient is very fidgety ) - Head Head exam: Present: atraumatic, normocephalic - Eye Eye exam: Present: normal appearance, PERRL, EOMI - ENT ENT exam: Present: normal oropharynx, mucous membranes moist, TM's normal bilaterally, normal external ear exam - Neck Neck exam: Present: full ROM, trachea midline. Absent: tenderness - Chest Chest inspection: Present: symmetric chest wall rise. Absent: tenderness - Respiratory Respiratory exam: Present: normal lung sounds bilaterally. Absent: respiratory distress - Cardiovascular Cardiovascular exam: Present: regular rate, normal rhythm, normal heart sounds. Absent: murmur - Abdominal Exam Abdominal exam: Present: soft, normal bowel sounds. Absent: distention, tenderness - Extremities Exam Extremities exam: Present: full ROM. Absent: tenderness - Back Exam Back exam: Present: full ROM. Absent: tenderness - Neurological Exam Neurological exam: Present: alert, oriented X3, CN II-XII intact. Absent: motor sensory deficit - Psychiatric Psychiatric exam: Present: anxious, other (patient is very fidgety ) - Skin Skin exam: Present: warm, dry, intact, normal color Course Course Narrative: spoke with hospitalist re patient who will be admitted for sickle cell crisis/ Results - Labs CBC & BMP: 02/07/17 01:23 02/07/17 01:23 Lab Results: I have reviewed the patients labs Labs: Laboratory Tests 02/07/17 01:23 WBC 26.7 H RBC 2.08 L Hgb 6.8 L Hct 19.1 L RDW 21.1 H Plt Count 588 H Neut # (Auto) 12.1 H Lymph # (Auto) 11.5 H [place] # (Auto) 2.0 H Percent Retic 23.1 H Laboratory Tests 02/07/17 01:23 Urine pH 5.[address] 1.006 Urine Blood Small Urine Urobilinogen < 2.0 H Urine WBC <1 Laboratory Tests 02/07/17 01:23 Sodium 139 Potassium 4.5 Chloride 108 H Carbon Dioxide 22 BUN 20 H Creatinine 1.30 Glucose 147 H Total Bilirubin 3.50 H AST 66 H - Diagnostic Findings Procedure: Chest x-ray: image reviewed by me Disposition Clinical Impression: Sickle cell anemia with crisis Case discussed with: patient Disposition: Still a Patient Condition: Stable Time of Disposition: 02:28
[2017-02-07] MEDS ORDERED: diphenhydrAMINE 50 MG/1 ML VIAL IV STA (01:50)
[2017-02-07] MEDS ORDERED: SODIUM CHLORIDE 0.9% 1,000 ML IV STA (01:50)
[2017-02-07] MEDS ORDERED: HYDROmorphone 2 MG/1 ML VIAL IV STA ×2 (01:50→02:05)
[2017-02-07 01:51] LABS: Basophils # 0.1 10*3/uL (0.0-0.2); Basophils % 0.3 % (0.0-0.8); Eosinophils # 0.8 10*3/uL (0.0-0.87); Eosinophils % 2.9 % (0.00-10.9); Hematocrit 19.1 VOL% (42.0-52.0); Hemoglobin 6.8 GM/DL (14.0-18.0); Immature Granulocytes % 0.6 %; Immature Granulocytes Absolute 0.17 #; Lymphocytes # 11.5 10*3/uL (1.4-4.0); Lymphocytes % 43.1 % (21.2-54.2); Mean Corpuscular HGB Conc 35.6 GM/DL (32-36); Mean Corpuscular Hemoglobin 33 PG (27-34); Mean Corpuscular Volume 91.8 FL (87-102); Mean Platelet Volume 10.3 FL (9.6-12.0); Monocytes % 7.6 % (1.7-12.7); NRBC # 0.32 10*3/uL; Neutrophils # 12.1 10*3/uL (1.4-7.4); Neutrophils % 45.5 % (38.7-73.9); Platelet Count 588 T/CUMM (130-400); Red Blood Count 2.08 MC/CUMM (3.8-5.5); Red Cell Distribution Width 21.1 % (9.3-17.3); White Blood Count 26.7 T/CUMM (4-12)
[2017-02-07] MEDS ORDERED: diphenhydrAMINE 50 MG/1 ML VIAL ONE (01:52)
[2017-02-07] MEDS ORDERED: HYDROmorphone 2 MG/1 ML VIAL ONE (01:52)
[2017-02-07 01:53] LABS: Albumin 4.3 G/DL (3.4-5.0); Bilirubin,Total 3.5 MG/DL (0.2-1.0); Calcium 8.6 MG/DL (8.5-10.1); Osmolality,Calculated 282.5 MOS/KG (273-304); Potassium 4.5 MMOL/L (3.5-5.1); Total Protein 7.1 G/DL (6.4-8.3)
[2017-02-07 02:03] LABS: Apearance,Urine CLEAR (Clear); Bilirubin,Urine Negative (Negative); Blood, Urine Small mg/dL (Negative); Glucose,Urine (UA) Negative (Negative); Ketones,Urine Negative (Negative); Nitrite,Urine Negative (Negative); Protein,Urine Negative; Urine Color Yellow (Yellow); Urine Specific Gravity 1.006 (1.001-1.035); Urine Urobilinogen < 2.0 EU/DL (0.2-1.0); WBC,Urine <1 /HPF (0-6)
[2017-02-07 02:12] LABS: Barbiturates Screen,Urine Negative (Negative); Benzodiazepines Screen,Urine Negative (Negative); Cannabinoid Screen,Urine Negative (Negative); Opiate Screen,Urine Positive (Negative); Phencyclidine Screen,Urine Negative (Negative)
[2017-02-07] MEDS ORDERED: LORazepam 2 MG/1 ML VIAL IV STA (02:24)
[2017-02-07] MEDS ORDERED: LORazepam 2 MG/1 ML VIAL ONE (02:27)
[2017-02-07] MEDS ORDERED: HYDROmorphone 2 MG/1 ML VIAL IV PRN ×2 (03:18→05:22)
[2017-02-07] MEDS ORDERED: diphenhydrAMINE CAP 50 MG CAPSULE PO PRN (03:20)
[2017-02-07 03:28] LABS: Eosinophils 1 % (0-10); Lymphocytes 54 % (20-55); Nucleated Red Blood Cells 1 (0-5); Segmented Neutrophils 39 % (50-85); Total Cells Counted 100
[2017-02-07 03:29] LABS: Anisocytosis 1+; Howell-Jolly Bodies Few; Ovalocytes 1+
[2017-02-07 03:30] LABS: Platelet Estimate Increased; Polychromasia 1+
[2017-02-07] MEDS ORDERED: SODIUM CHLORIDE 0.9% 1,000 ML IV SCH (03:30)
[2017-02-07] MEDS ORDERED: HYDROmorphone 2 MG/1 ML VIAL IV SCH (04:30)
--- NOTE | 2017-02-07 04:52 | Hospitalist History & Physical ---
Assessment and Plan (1) Sickle cell anemia with crisis Status: Acute Current Visit: Yes (2) Hypertension Status: Acute Current Visit: No Qualifiers: Hypertension type: unspecified Qualified Code(s): I10 - Essential (primary ) hypertension (3) Leukocytosis Status: Acute Current Visit: No (4) Sickle cell pain crisis Status: Acute Assessment and plan: Plan: Admit to [facility] floor. IV fluids for hydration, Hold off on transfusion at this time and Repeat H&H this am and transfuse as indicated. PRN pain medication Dilaudid. Resume hydrea and Lisinopril for hypertension. leukocytosis could be stress/sickle crisis related. Follow up on Chest xray and repeat labs. IV Protonix for PUD and Lovenox for DVT px. Current Visit: No History of Present Illness Chief complaint: "Overall Stabbing pain" History of present illness: Mr. Patel is a 26 year old male with past medical history significant for Tobacco abuse, HTN, and Sickle Cell that presented to the ED complaining of uncontrollable pain and malaise. Associated symptoms are pain 9/ 10 from the top of his shoulders down his back on bilateral lower extremeties, fatique, and malaise. The pain is described as stabing. The symptoms are constant. The onset was two days ago. There are no modifying factors. He states he receives mild relief when he is given Dilaudid 3mg IVP with IV 50mg of Benadryl. He denies, SOB, Chest pain, abdominal pain, nausea, vomiting or diarrhea. he denies any recent trauma or drug or alcohol use. Labs revealed normocytic, normochromic anemia with HGB 6.8 and HCt of 19. Percent retic count was elevated as well. Urine negative for indication of infection, positive for opiates and cocaine. Chest xray pending. The patient was admitted to the Hospitalist Service. Home Medications Medication Instructions Recorded Confirmed Type Fluticasone/Salmeterol 250-50 1 puff INH BID #1 diskus 01/26/16 02/07/17 Rx [Advair 250-50] Folic Acid Tab 1 mg PO BID #60 tablet 01/26/16 02/07/17 Rx Hydroxyurea [Hydrea] 2,000 mg PO BEDTIME #120 capsule 01/26/16 02/07/17 Rx Lisinopril 20 mg PO DAILY 09/12/16 02/07/17 History Oxycodone HCl/Acetaminophen 1 each PO Q6H #30 tablet 01/19/17 02/07/17 Rx [Percocet 10-325 mg Tablet] Allergies Allergy/AdvReac Type Severity Reaction Status Date / Time Seafood Allergy Intermediate RASH Verified 02/07/17 00:53 ondansetron Allergy ITCHING Verified 02/07/17 00:53 [From Zofran (as hydrochloride)] promethazine [From Phenergan] Allergy HIVES Verified 02/07/17 00:53 Medical,Surgical,& Family Hx - Medical History Cardio: History of: Congenital Heart Disease Psychological: No history of: Psychiatric Problems Neurology: No history of: Neurological Problems Respiratory: History of: Bronchitis Renal: No history of: Renal Problems Genitourinary: No history of: Problems Gastrointestinal: History of: GI Problems (spleen removed) Musculoskeletal: History of: Musculoskeletal Problems (joint pain with sickle cell crisis) No history of: Amputation Hematology: History of: Anemia, Sickle Cell Disease - Surgical History Cardiac Surgeries: Patient Denies: Cardiac Catheterization Thoracic Surgeries: Patient denies;: Organ Transplant, Lobectomy HEENT Surgeries: Surgical HX of: Tonsilectomy & Adenoidectomy Abdominal Surgeries: Surgical HX of: Abdominal Surgery (spleenectomy), Hernia Repair, Splenectomy Reproductive Surgeries: Patient denies;: Genitourinary Surgery - Family History Family History: Reports;: Family Cancer - Social History Smoking Status: Current some day smoker Frequency of Alcohol Use: Occasionally Type of Drug Use: None Exam - Constitutional Vitals: Period Temp Pulse Resp BP Sys/Wheeler Pulse Ox Last 24 Hr 98.5 F-98.5 F 80-89 18-20 150-155/90-95 94 General appearance: normal weight, no no acute distress - Head Head exam: Present: normal inspection - Eye Eye exam: Present: EOMI Pupils: Present: JOSE G, normal accommodation - ENT ENT exam: Present: normal exam - Neck Neck exam: Present: normal inspection - Respiratory Respiratory exam: Present: clear to auscultation bilaterally. Absent: accessory muscle use, chest wall tenderness, rales, rhonchi, wheezes - Cardiovascular Cardiovascular exam: Present: regular rate and rhythm - GI/Abdominal GI/Abdominal exam: Present: normal bowel sounds. Absent: distended, tenderness - Extremities Exam Extremities exam: Present: normal inspection, normal capillary refill, full ROM - Back Exam Back exam: Present: normal inspection - Neurological Exam Neurological exam: Present: alert, oriented X3, normal gait, CN II-XII intact - Psychiatric Psychiatric exam: Present: anxious - Skin Skin exam: Present: normal color, warm, dry, intact Results - Labs CBC & BMP: 02/07/17 01:23 02/07/17 01:23
[2017-02-07] MEDS ORDERED: HYDROmorphone 2 MG/1 ML VIAL IV ONE (05:48)
[2017-02-07] MEDS ORDERED: SODIUM CHLORIDE 0.9% 250 ML IV PRN (05:52)
[2017-02-07 06:28] LABS: Basophils # 0.1 10*3/uL (0.0-0.2); Basophils % 0.2 % (0.0-0.8); Eosinophils # 0.6 10*3/uL (0.0-0.87); Eosinophils % 2.7 % (0.00-10.9); Hematocrit 18.5 VOL% (42.0-52.0); Hemoglobin 6.5 GM/DL (14.0-18.0); Immature Granulocytes % 0.5 %; Immature Granulocytes Absolute 0.12 #; Lymphocytes # 10.3 10*3/uL (1.4-4.0); Lymphocytes % 44.7 % (21.2-54.2); Mean Corpuscular HGB Conc 35.1 GM/DL (32-36); Mean Corpuscular Hemoglobin 32 PG (27-34); Mean Corpuscular Volume 91.1 FL (87-102); Mean Platelet Volume 9.9 FL (9.6-12.0); Monocytes % 8.8 % (1.7-12.7); Neutrophils # 9.9 10*3/uL (1.4-7.4); Neutrophils % 43.1 % (38.7-73.9); Platelet Count 588 T/CUMM (130-400); Red Blood Count 2.03 MC/CUMM (3.8-5.5); Red Cell Distribution Width 21.2 % (9.3-17.3)
[2017-02-07 06:55] LABS: Eosinophils 3 % (0-10); Hypochromasia 1+; Lymphocytes 41 % (20-55); Macrocytosis Slight; Nucleated Red Blood Cells 1 (0-5); Platelet Estimate Increased; Polychromasia Slight; Segmented Neutrophils 50 % (50-85); Target Cells Few; Total Cells Counted 100
[2017-02-07 06:56] LABS: Elliptocytes Few; Giant Platelets Few; Howell-Jolly Bodies Few; Sickle Cells Few
[2017-02-07 07:00] LABS: Albumin 4.2 G/DL (3.4-5.0); Bilirubin,Total 3.6 MG/DL (0.2-1.0); Calcium 8.8 MG/DL (8.5-10.1); Osmolality,Calculated 282.3 MOS/KG (273-304); Potassium 4.2 MMOL/L (3.5-5.1); Total Protein 6.8 G/DL (6.4-8.3)
--- NOTE | 2017-02-07 07:43 | XRay Report ---
XR chest 1V portable Indication: Shortness of breath Comparison: None available Findings: The heart and mediastinum are normal in size and configuration. The pulmonary vascularity is normal in caliber. No lung infiltrates, effusions, pneumothorax or other abnormality is demonstrated. Impression: No acute cardiopulmonary findings. PROCEDURE INTERPRETED AT [facility] DEPARTMENT OF RADIOLOGY Final Report Signed by: Dr. Olivier Woodard
[2017-02-07 08:02] VITALS: BP 143/83
[2017-02-07] MEDS ORDERED: PANTOPRAZOLE 40 MG TABLET PO SCH (09:00)
[2017-02-07] MEDS ORDERED: ENOXAPARIN 40 MG/0.4 ML SYRINGE SUBCUT SCH (09:00)
[2017-02-07] MEDS ORDERED: FLUTICASONE/SALMETEROL 250-50 DISKUS 14 DOSE INH SCH (09:00)
[2017-02-07] MEDS ORDERED: LISINOPRIL 20 MG TABLET PO SCH (09:00)
[2017-02-07] MEDS ORDERED: FOLIC ACID 1 MG TABLET PO SCH (09:00)
[2017-02-07] MEDS ORDERED: ACETAMINOPHEN 325 MG TABLET PO PRN (09:31)
--- NOTE | 2017-02-07 09:46 | Hospitalist Progress Note ---
Assessment and Plan (1) Drug-seeking behavior Status: Acute Assessment and plan: I have informed him I will not give him any more narcotics. Current Visit: Yes (2) Anemia Status: Chronic Assessment and plan: His hematocrit and hemoglobin are 18.5 and 6.5 respectively. He declines transfusion. Current Visit: No Qualifiers: Anemia type: other cause Other causes of anemia: chronic disease, other Qualified Code(s): D63.8 - Anemia in other chronic diseases classified elsewhere (3) Sickle cell pain crisis Status: Acute Assessment and plan: I do not know if he is actually having a sickle cell crisis or just seeking narcotic drugs. He does not appear to be to be in significant pain. Current Visit: No Hospitalist: Subjective Interval history: Patient was admitted to the hospital last night with an allegedly sickle cell crisis. Since arriving on this unit, he has been hostile, noncooperative, and disruptive. He has been leaving the floor and refused to stay here for any treatments other than narcotics. I have informed him I no longer will give him any narcotics, to which she responded with anger and profanity. Exam - Constitutional Vitals: Period Temp Pulse Resp BP Sys/Wheeler Pulse Ox Last 24 Hr 97.9 F-98.5 F 80-89 18-88 138-157/83-95 90-94 General appearance: no acute distress Results - Labs CBC & BMP: 02/07/17 06:15 02/07/17 06:15 Quality Measures - Stroke Symptom Onset Unknown: No
--- NOTE | 2017-02-07 10:57 | Discharge Summary ---
Hospital Course - Hospital Course Hospital Course: Mr. Patel is a 26 year old male with past medical history significant for Tobacco abuse, HTN, and Sickle Cell that presented to the ED complaining of uncontrollable pain and malaise. Associated symptoms are pain 9/ 10 from the top of his shoulders down his back on bilateral lower extremeties, fatique, and malaise. The pain is described as stabing. The symptoms are constant. The onset was two days ago. There are no modifying factors. He states he receives mild relief when he is given Dilaudid 3mg IVP with IV 50mg of Benadryl. He denies, SOB, Chest pain, abdominal pain, nausea, vomiting or diarrhea. he denies any recent trauma or drug or alcohol use. Labs revealed normocytic, normochromic anemia with HGB 6.8 and HCt of 19. Percent retic count was elevated as well. Urine negative for indication of infection, positive for opiates and cocaine. Patient was admitted to the hospital with a presumed sickle cell crisis. We attempted to treat him with intravenous fluids and packed red blood cell transfusions. Patient refused all treatments. He was hostile, disruptive, and threatening to the hospital staff. Accordingly after refusing all treatments and being told that he would not receive narcotics, he was discharged from the hospital. Diagnosis - Discharge Diagnosis (1) Drug-seeking behavior Status: Chronic (2) Anemia Status: Chronic (3) Sickle cell pain crisis Status: Acute Discharge Plan - Discharge Data Disposition: Disch To Home/Self Care Condition at Discharge: Stable Discharge Diet: advance to your usual diet Activity: resume usual activities as tolerated - Discharge Medications Continue Fluticasone/Salmeterol 250-50 [Advair 250-50] 1 puff INH BID #1 diskus Folic Acid Tab 1 mg PO BID #60 tablet Hydroxyurea [Hydrea] 2,000 mg PO BEDTIME #120 capsule Lisinopril 20 mg PO DAILY Oxycodone HCl/Acetaminophen [Percocet 10-325 mg Tablet] 1 each PO Q6H #30 tablet - Follow Up or Referral - Forms/Instructions Exam - Constitutional Vitals: Period Temp Pulse Resp BP Sys/Wheeler Pulse Ox Last 24 Hr 97.9 F-98.5 F 80-89 18-88 138-157/83-95 90-94 Discharge Results Procedures and tests throughout hospitalization: Pending Orders 02/07/17 06:15 Red Blood Cells Leuko Red Routine Type and Screen Routine Labs on day of discharge: Labs from last 24 hours 02/07/17 02/07/17 02/07/17 06:15 06:15 06:15 WBC 23.0 H RBC 2.03 L Hgb 6.5 L Hct 18.5 L MCV 91.1 MCH 32 MCHC 35.1 RDW 21.2 H Plt Count 588 H MPV 9.9 Neut % (Auto) 43.1 Lymph % (Auto) 44.7 Russell % (Auto) 8.8 Eos % (Auto) 2.7 Baso % (Auto) 0.2 Neut # (Auto) 9.9 H Lymph # (Auto) 10.3 H Russell # (Auto) 2.0 H Eos # (Auto) 0.6 Baso # (Auto) 0.1 Total Counted 100 Immature Gran % 0.5 Nucleated RBC % 1.3 Immature Gran # 0.12 Segmented Neutrophils 50 Lymphocytes 41 Monocytes 6 Eosinophils 3 Nucleated RBCs 1 Nucleated RBCs # 0.30 Platelet Estimate Increased Giant Platelets Few Immature Plt Fraction 0.0 Polychromasia Slight Hypochromasia 1+ Anisocytosis Macrocytosis Slight Sickle Cells Few Target Cells Few Ovalocytes [place] Bodies Few Elliptocytes Few Absolute Retic Percent Retic Retic Hgb Equivalent Sodium 141 Potassium 4.2 Chloride 110 H Carbon Dioxide 25 Anion Gap 10.2 BUN 18 Creatinine 1.20 GFR Calculation 119 BUN/Creatinine Ratio 15.00 Glucose 94 Calculated Osmolality 282.3 Calcium 8.8 Total Bilirubin 3.60 H AST 61 H ALT 40 Alkaline Phosphatase 75 Total Protein 6.8 Albumin 4.2 Globulin 2.6 Albumin/Globulin Ratio 1.6 Urine Color Urine Appearance Urine pH Ur Specific [place] Urine Protein Urine Glucose (UA) Urine Ketones Urine Blood Urine Nitrate Urine Bilirubin Urine Urobilinogen Urine Leukocytes Urine WBC Ur Culture Indicated? Urine Opiates Screen Ur Barbiturates Screen Ur Phencyclidine Scrn U Amphetamine/Methamph U Benzodiazepines Scrn U Cocaine Metab Screen U Cannabinoids Screen Blood Type AB POSITIVE Antibody Screen Negative Crossmatch See Detail 02/07/17 02/07/17 02/07/17 01:23 01:23 01:23 WBC RBC Hgb Hct MCV MCH MCHC RDW Plt Count MPV Neut % (Auto) Lymph % (Auto) Russell % (Auto) Eos % (Auto) Baso % (Auto) Neut # (Auto) Lymph # (Auto) Russell # (Auto) Eos # (Auto) Baso # (Auto) Total Counted Immature Gran % Nucleated RBC % Immature Gran # Segmented Neutrophils Lymphocytes Monocytes Eosinophils Nucleated RBCs Nucleated RBCs # Platelet Estimate Giant Platelets Immature Plt Fraction Polychromasia Hypochromasia Anisocytosis Macrocytosis Sickle Cells Target Cells Ovalocytes High[place] Bodies Elliptocytes Absolute Retic Percent Retic Retic Hgb Equivalent Sodium 139 Potassium 4.5 Chloride 108 H Carbon Dioxide 22 Anion Gap 13.5 BUN 20 H Creatinine 1.30 GFR Calculation 108 BUN/Creatinine Ratio 15.00 Glucose 147 H Calculated Osmolality 282.5 Calcium 8.6 Total Bilirubin 3.50 H AST 66 H ALT 42 Alkaline Phosphatase 81 Total Protein 7.1 Albumin 4.3 Globulin 2.8 Albumin/Globulin Ratio 1.5 Urine Color Yellow Urine Appearance Clear Urine pH 5.0 Ur Specific [place] 1.006 Urine Protein Negative Urine Glucose (UA) Negative Urine Ketones Negative Urine Blood Small Urine Nitrate Negative Urine Bilirubin Negative Urine Urobilinogen < 2.0 H Urine Leukocytes Negative Urine WBC <1 Ur Culture Indicated? Not indicated Urine Opiates Screen Positive H Ur Barbiturates Screen Negative Ur Phencyclidine Scrn Negative U Amphetamine/Methamph Negative U Benzodiazepines Scrn Negative U Cocaine Metab Screen Positive H U Cannabinoids Screen Negative Blood Type Antibody Screen Crossmatch 02/07/17 01:23 WBC 26.7 H RBC 2.08 L Hgb 6.8 L Hct 19.1 L MCV 91.8 MCH 33 MCHC 35.6 RDW 21.1 H Plt Count 588 H MPV 10.3 Neut % (Auto) 45.5 Lymph % (Auto) 43.1 Russell % (Auto) 7.6 Eos % (Auto) 2.9 Baso % (Auto) 0.3 Neut # (Auto) 12.1 H Lymph # (Auto) 11.5 H Russell # (Auto) 2.0 H Eos # (Auto) 0.8 Baso # (Auto) 0.1 Total Counted 100 Immature Gran % 0.6 Nucleated RBC % 1.2 Immature Gran # 0.17 Segmented Neutrophils 39 L Lymphocytes 54 Monocytes 6 Eosinophils 1 Nucleated RBCs 1 Nucleated RBCs # 0.32 Platelet Estimate Increased Giant Platelets Immature Plt Fraction 0.0 Polychromasia 1+ Hypochromasia Anisocytosis 1+ Macrocytosis Sickle Cells Target Cells Ovalocytes 1+ High-[place] Bodies Few Elliptocytes Absolute Retic 0.5 Percent Retic 23.1 H Retic Hgb Equivalent 31.4 Sodium Potassium Chloride Carbon Dioxide Anion Gap BUN Creatinine GFR Calculation BUN/Creatinine Ratio Glucose Calculated Osmolality Calcium Total Bilirubin AST ALT Alkaline Phosphatase Total Protein Albumin Globulin Albumin/Globulin Ratio Urine Color Urine Appearance Urine pH Ur Specific [place] Urine Protein Urine Glucose (UA) Urine Ketones Urine Blood Urine Nitrate Urine Bilirubin Urine Urobilinogen Urine Leukocytes Urine WBC Ur Culture Indicated? Urine Opiates Screen Ur Barbiturates Screen Ur Phencyclidine Scrn U Amphetamine/Methamph U Benzodiazepines Scrn U Cocaine Metab Screen U Cannabinoids Screen Blood Type Antibody Screen Crossmatch DS: Provider Date of admission: 02/07/17 03:16 Primary care physician: . No PCP Attending physician on admission: Venancio Gutierrez MD Discharging clinician: Clif Moore
[2017-02-07] MEDS ORDERED: HYDROXYUREA 500 MG CAPSULE PO SCH (21:00)
[2017-02-08] MEDS ORDERED: HYDROmorphone 2 MG/1 ML VIAL IV PRN (06:00)
== END 2017-02-07 11:10 | disposition home or self-care (01) | DRG 812 ==
LOC: N.ED 00:28 → SUATTDRO 03:16 → N.EDINP 03:16 → N.2E 03:58
PROVIDERS: ADMIT Internal Medicine

== ENCOUNTER 2017-02-09 04:23 | Inpatient (IN) ==
[2017-02-09] MEDS ORDERED: METOCLOPRAMIDE 10 MG/2 ML VIAL IV STA (05:14)
[2017-02-09] MEDS ORDERED: HYDROmorphone 2 MG/1 ML VIAL IV STA (05:14)
[2017-02-09] MEDS ORDERED: SODIUM CHLORIDE 0.9% 1,000 ML IV STA (05:14)
--- NOTE | 2017-02-09 05:32 | Emergency Department Note ---
Lamonte Delgado Brittany, am scribing for, and in the presence of, Nolberto Youngblood MD 05:28. Ford Delgado Charles R, MD, personally performed the services described in this documentation, ascribed by Susan Aburto in my presence, and it is both accurate and complete 532 . Arrival - Arrival Chief Complaint: Sickle Cell Stated Complaint: sicle cell crisis pain at level 9 ED Nursing Triage Note: C/O Pain to back and legs. Onset 2 days before he was admitted. Pt states that he left before receiving blood that was ordered on him. Pt reports that he signed out against medical advice and does not have any medications to take at home for the pain. Mode of Arrival: Ambulatory Limitations: No Limitations Source: Patient, RN Notes Reviewed Time Seen by Provider: 02/09/17 05:13 - History of Present Illness HPI Narrative: Patient is a 26 y/o black male presenting to the ED with c/o bilateral lower extremity pain and back pain that has been ongoing x4 days. Patient on last visit here on 02/07 was admitted to receive a blood transfusion, but patient left AMA. He states that he left because his job would not allow him to miss for a blood transfusion. Patient states that since he decided to leave AMA, his pain has gotten increasingly worse. He reports that he does have a history of jaundiced eyes when he needs a blood transfusion. Patient denies having any chest pain, abdominal pain, N/V, or SOB. No further complaints. Allergies/Adverse Reactions: Allergies Allergy/AdvReac Type Severity Reaction Status Date / Time Seafood Allergy Intermediate RASH Verified 02/07/17 00:53 ondansetron Allergy ITCHING Verified 02/07/17 00:53 [From Zofran (as hydrochloride)] promethazine [From Phenergan] Allergy HIVES Verified 02/07/17 00:53 Home Medications: Home Medications Medication Instructions Recorded Confirmed Type Hydroxyurea [Hydrea] 2,000 mg PO BEDTIME #120 capsule 01/26/16 02/09/17 Rx Review of System - Review of System 12 point system: reviewed and no additional remarkable complaints except as stated - Review of System Respiratory: Absent: respiratory distress Cardiovascular: Absent: chest pain Gastrointestinal: Absent: abdominal pain, nausea, vomiting Musculoskeletal: Present: back pain, leg pain (BLE) Medical,Surgical,& Family Hx - Medical History Cardio: History of: Congenital Heart Disease Psychological: No history of: Psychiatric Problems Neurology: No history of: Neurological Problems Respiratory: History of: Bronchitis Renal: No history of: Renal Problems Genitourinary: No history of: Problems Gastrointestinal: History of: GI Problems (spleen removed) Musculoskeletal: History of: Musculoskeletal Problems (joint pain with sickle cell crisis) No history of: Amputation Hematology: History of: Anemia, Sickle Cell Disease - Surgical History Cardiac Surgeries: Patient Denies: Cardiac Catheterization Thoracic Surgeries: Patient denies;: Organ Transplant, Lobectomy HEENT Surgeries: Surgical HX of: Tonsilectomy & Adenoidectomy Abdominal Surgeries: Surgical HX of: Abdominal Surgery (spleenectomy), Hernia Repair, Splenectomy Reproductive Surgeries: Patient denies;: Genitourinary Surgery - Family History Family History: Reports;: Family Cancer - Social History Smoking Status: Current some day smoker Frequency of Alcohol Use: None Type of Drug Use: None Exam Vital Signs: Vital Signs Temperature 98.6 F 02/09/17 04:38 Pulse Rate 83 02/09/17 04:38 Respiratory Rate 18 02/09/17 04:38 Blood Pressure 166/103 02/09/17 04:38 O2 Sat by Pulse Oximetry 97 02/09/17 04:38 - General General appearance: alert, in no apparent distress - Head Head exam: Present: atraumatic, normocephalic, normal inspection - Eye Eye exam: Present: PERRL, EOMI, scleral icterus - ENT ENT exam: Present: normal exam, normal oropharynx - Neck Neck exam: Present: normal inspection, full ROM, trachea midline - Chest Chest inspection: Present: normal inspection, symmetric chest wall rise - Respiratory Respiratory exam: Present: normal lung sounds bilaterally - Cardiovascular Cardiovascular exam: Present: regular rate, normal rhythm, normal heart sounds - Abdominal Exam Abdominal exam: Present: soft, normal bowel sounds, other (Nodular liver). Absent: tenderness - Extremities Exam Extremities exam: Present: tenderness (BLE) - Neurological Exam Neurological exam: Present: alert, oriented X3, CN II-XII intact. Absent: motor sensory deficit - Psychiatric Psychiatric exam: Present: normal affect, normal mood - Skin Skin exam: Present: warm, dry Course - Consultations Consultation #1: Hospitalist will admit patient Time: 05:38 Results - Labs Labs: Previous results reviewed from 2 days ago patient is an acute sickle cell crisis with a acute hemolytic anemia Critical Care Time Critical Care Time: Yes Total Critical Care Time: 30 Disposition Clinical Impression: History of sickle cell disease, Sickle cell pain crisis, Sickle cell anemia with crisis Case discussed with: patient, patient's family Disposition: Still a Patient Condition: Guarded Time of Disposition: 05:38
[2017-02-09] MEDS ORDERED: HYDROmorphone 2 MG/1 ML VIAL ONE (05:59)
[2017-02-09] MEDS ORDERED: METOCLOPRAMIDE 10 MG/2 ML VIAL ONE (05:59)
[2017-02-09 06:12] LABS: Basophils # 0.1 10*3/uL (0.0-0.2); Basophils % 0.3 % (0.0-0.8); Eosinophils # 0.5 10*3/uL (0.0-0.87); Eosinophils % 3.2 % (0.00-10.9); Hematocrit 22.9 VOL% (42.0-52.0); Hemoglobin 7.9 GM/DL (14.0-18.0); Immature Granulocytes % 0.6 %; Lymphocytes % 23.6 % (21.2-54.2); Mean Corpuscular HGB Conc 34.5 GM/DL (32-36); Mean Corpuscular Hemoglobin 33 PG (27-34); Mean Corpuscular Volume 96.6 FL (87-102); Mean Platelet Volume 10.2 FL (9.6-12.0); Monocytes # 1.6 10*3/uL (0.11-0.8); Monocytes % 9.7 % (1.7-12.7); NRBC # 0.34 10*3/uL; Neutrophils # 10.5 10*3/uL (1.4-7.4); Neutrophils % 62.6 % (38.7-73.9); Platelet Count 592 T/CUMM (130-400); Red Blood Count 2.37 MC/CUMM (3.8-5.5); Red Cell Distribution Width 25.6 % (9.3-17.3); White Blood Count 16.8 T/CUMM (4-12)
[2017-02-09] MEDS ORDERED: ZALEPLON 5 MG CAPSULE PO PRN (06:28)
[2017-02-09] MEDS ORDERED: ACETAMINOPHEN 325 MG TABLET PO PRN (06:28)
[2017-02-09] MEDS ORDERED: SODIUM CHLORIDE 0.9% 250 ML IV PRN ×3 (06:28→11:12)
[2017-02-09] MEDS ORDERED: SODIUM CHLORIDE 0.9% 1,000 ML IV SCH (06:30)
--- NOTE | 2017-02-09 06:33 | Hospitalist History & Physical ---
Assessment and Plan (1) Anemia Status: Chronic Assessment and plan: Transfuse 2 units packed red blood cells. His hemoglobin is better today than it was when he left AMA 2 days ago. His reticulocyte count remains high. Current Visit: No Qualifiers: Anemia type: acquired or hereditary hemolytic anemia (2) Sickle cell pain crisis Status: Acute Current Visit: Yes (3) Drug-seeking behavior Status: Chronic Current Visit: Yes History of Present Illness Chief complaint: back and leg pain History of present illness: Mr. Patel is a 26 year old male presenting to the ED with c/o bilateral lower extremity pain and back pain that has been ongoing x4 days. Patient on last visit here on 02/07 was admitted to receive a blood transfusion, but patient left AMA. He states that he left because his job would not allow him to miss for a blood transfusion. Patient states that since he decided to leave AMA, his pain has gotten increasingly worse. He reports that he does have a history of jaundiced eyes when he needs a blood transfusion. Patient denies having any chest pain, abdominal pain, N/V, or SOB. No further complaints. Home Medications Medication Instructions Recorded Confirmed Type Hydroxyurea [Hydrea] 2,000 mg PO BEDTIME #120 capsule 01/26/16 02/09/17 Rx Allergies Allergy/AdvReac Type Severity Reaction Status Date / Time Seafood Allergy Intermediate RASH Verified 02/07/17 00:53 ondansetron Allergy ITCHING Verified 02/07/17 00:53 [From Zofran (as hydrochloride)] promethazine [From Phenergan] Allergy HIVES Verified 02/07/17 00:53 Medical,Surgical,& Family Hx - Medical History Cardio: History of: Congenital Heart Disease Psychological: No history of: Psychiatric Problems Neurology: No history of: Neurological Problems Respiratory: History of: Bronchitis Renal: No history of: Renal Problems Genitourinary: No history of: Problems Gastrointestinal: History of: GI Problems (spleen removed) Musculoskeletal: History of: Musculoskeletal Problems (joint pain with sickle cell crisis) No history of: Amputation Hematology: History of: Anemia, Sickle Cell Disease - Surgical History Cardiac Surgeries: Patient Denies: Cardiac Catheterization Thoracic Surgeries: Patient denies;: Organ Transplant, Lobectomy HEENT Surgeries: Surgical HX of: Tonsilectomy & Adenoidectomy Abdominal Surgeries: Surgical HX of: Abdominal Surgery (spleenectomy), Hernia Repair, Splenectomy Reproductive Surgeries: Patient denies;: Genitourinary Surgery - Family History Family History: Reports;: Family Cancer - Social History Smoking Status: Current some day smoker Have you smoked in the last 12 months: Yes Time spent discussing smoking cessation with patient: 3 to 10 minutes (3 min) Frequency of Alcohol Use: None Type of Drug Use: None Marital Status: Lives With:: Spouse Functional capacity: independent ambulation 12 point system: reviewed and no additional remarkable complaints except as stated Exam - Constitutional Vitals: Period Temp Pulse Resp BP Sys/Wheeler Pulse Ox Last 24 Hr 98.6 F-98.6 F 83-83 16-18 166-166/103-103 97 Exam: Constitutional System: No distress. No tremulousness. Head: Normocephalic, atraumatic. Ears, Nose and Throat System: No pain or tenderness. No epistaxis or discharge Eyes System: Pupils equal, round, and reactive. Extraocular muscles intact. Neck: Supple, without adenopathy, No jugular venous distention. No thyromegaly, neck mass, or prior surgery apparent. Respiratory System: Chest clear to auscultation. Cardiovascular System: Heart with regular rate and rhythm. No murmur. GI System: Abdomen soft, nontender. Normo active bowel sounds present. Musculoskeletal System: limbs with no pedal edema. Full distal pulses. Normal capillary refill. Neurological System: No discernable sensory deficit. No aphasia Psychiatric System: Conversation is rational Results - Labs CBC & BMP: 02/09/17 05:53 Lab Results: I have reviewed the past 24 hour labs
[2017-02-09 06:41] LABS: Alanine Aminotransferase 34 U/L (16-61); Albumin 4.1 G/DL (3.4-5.0); Alkaline Phosphatase 80 U/L (45-117); Aspartate Amino Transferase 32 U/L (0-37); Blood Urea Nitrogen 10 MG/DL (7-18); Calcium 9.3 MG/DL (8.5-10.1); Glucose 90 MG/DL (74-106); Osmolality,Calculated 277.4 MOS/KG (273-304); Potassium 4.4 MMOL/L (3.5-5.1); Sodium 140 MMOL/L (136-145); Total Protein 7.2 G/DL (6.4-8.3)
[2017-02-09 07:40] LABS: Macrocytosis 1+; Polychromasia Slight; Target Cells Slight
[2017-02-09 07:41] LABS: Elliptocytes 1+; Pappenheimer Bodies Few
[2017-02-09] MEDS: MORPHINE 2 MG/1 ML SYRINGE IV PRN ×2 (08:29→15:45)
[2017-02-09] MEDS ORDERED: PANTOPRAZOLE 40 MG TABLET PO SCH (09:00)
[2017-02-09] MEDS ORDERED: ENOXAPARIN 40 MG/0.4 ML SYRINGE SUBCUT SCH (09:00)
[2017-02-09] MEDS ORDERED: oxyCODONE/ACETAMINOPHEN 5-325 MG TABLET PO PRN (11:39)
[2017-02-09] MEDS ORDERED: MORPHINE 2 MG/1 ML SYRINGE IV ONE (11:39)
--- NOTE | 2017-02-09 11:42 | Event Note ---
Patient has just been admitted for sickle cell pain. He left AMA approximately 2 days ago has recurrent return for due to pain. He is scheduled to get 2 units packed red blood cells today. He rates his pain on as a 9 on the pain scale. Does request that he gets his Percocet. He mentions that he would like to go home after his blood is given today in order for him to go to work. We will give 4 mg morphine IV. Percocet 10 mg every 4 hours as needed Transfuse 2 units packed red blood cells today. Continue with IV fluids.
[2017-02-09 15:50] VITALS: BP 155/86
--- NOTE | 2017-02-09 16:11 | Discharge Summary ---
Hospital Course - Hospital Course Hospital Course: This hospitalization included patient admitted for sickle cell pain crisis. He had initially been admitted 2 days ago left AMA. This time patient presented with increasing pain typical of his sickle cell crisis. He underwent 2 units packed red blood cells along with IV fluids. He has continued to do acceptable. No fevers or chills. The patient was not willing to stay for posttransfusion hematocrit. He was eager to be discharged as he had to go to work the following day. - Time spent with patient Time with patient DS: Greater than 30 minutes Diagnosis - Discharge Diagnosis (1) Anemia Status: Chronic (2) History of sickle cell disease Status: Chronic (3) Sickle cell pain crisis Status: Acute (4) Hypertension Status: Chronic Discharge Plan - Discharge Data Disposition: Disch To Home/Self Care Condition at Discharge: Stable Discharge Diet: advance to your usual diet Activity: resume usual activities as tolerated Hygiene: no restrictions - Discharge Medications New Pantoprazole Tab [Protonix Tab] 40 mg PO DAILY #30 tablet oxyCODONE/ACETAMINOPHEN 5-325 [Percocet 5-325] 2 tablet PO Q4H PRN #36 tablet PRN Reason: Pain Moderate (4-7) Continue Hydroxyurea [Hydrea] 2,000 mg PO BEDTIME #120 capsule - Follow Up or Referral - Forms/Instructions Instructions: Sickle Cell Crisis (GEN), Sickle Cell Anemia (GEN) Additional Discharge Instructions: Patient follow-up primary provider in 2 weeks Exam - Constitutional Vitals: Period Temp Pulse Resp BP Sys/Wheeler Pulse Ox Last 24 Hr 98.4 F-99.9 F 82-89 16-20 154-190/79-103 95-97 General appearance: normal weight - Head Head exam: Present: normal inspection - Eye Eye exam: Present: EOMI Pupils: Present: JOSE G - ENT ENT exam: Present: normal exam - Respiratory Respiratory exam: Present: clear to auscultation bilaterally - Cardiovascular Cardiovascular exam: Present: regular rate and rhythm - GI/Abdominal GI/Abdominal exam: Present: normal bowel sounds - Extremities Exam Extremities exam: Present: normal inspection - Back Exam Back exam: Present: normal inspection - Neurological Exam Neurological exam: Present: alert, oriented X3, CN II-XII intact - Psychiatric Psychiatric exam: Present: normal affect, normal mood - Skin Skin exam: Present: normal color, warm Discharge Results Procedures and tests throughout hospitalization: Pending Orders 02/09/17 05:14 Drug Screen, Urine Stat Urinalysis Stat 02/10/17 04:00 Comp Blood Count Auto Diff IN AM LDH [Lactate Dehydrogenase] IN AM Reticulocyte Count IN AM Labs on day of discharge: Labs from last 24 hours 02/09/17 02/09/17 02/09/17 11:13 05:53 05:53 WBC RBC Hgb Hct MCV MCH MCHC RDW Plt Count MPV Neut % (Auto) Lymph % (Auto) Morton % (Auto) Eos % (Auto) Baso % (Auto) Neut # (Auto) Lymph # (Auto) Morton # (Auto) Eos # (Auto) Baso # (Auto) Immature Gran % Nucleated RBC % Immature Gran # Nucleated RBCs # Immature Plt Fraction Polychromasia Macrocytosis Pappenheimer Bodies Target Cells Elliptocytes Absolute Retic 0.7 Percent Retic > 26.1 H Retic Hgb Equivalent 36.4 Sodium Potassium Chloride Carbon Dioxide Anion Gap BUN Creatinine GFR Calculation BUN/Creatinine Ratio Glucose POC Glucose 92 Calculated Osmolality Calcium Magnesium Total Bilirubin AST ALT Alkaline Phosphatase Lactate Dehydrogenase Total Protein Albumin Globulin Albumin/Globulin Ratio Serum Alcohol Blood Type Cancelled Antibody Screen Cancelled Crossmatch See Detail Blood Bank Comment Cancelled 02/09/17 02/09/17 02/09/17 05:53 05:53 05:53 WBC 16.8 H RBC 2.37 L Hgb 7.9 L D Hct 22.9 L MCV 96.6 MCH 33 MCHC 34.5 RDW 25.6 H Plt Count 592 H MPV 10.2 Neut % (Auto) 62.6 Lymph % (Auto) 23.6 Morton % (Auto) 9.7 Eos % (Auto) 3.2 Baso % (Auto) 0.3 Neut # (Auto) 10.5 H Lymph # (Auto) 4.0 Morton # (Auto) 1.6 H Eos # (Auto) 0.5 Baso # (Auto) 0.1 Immature Gran % 0.6 Nucleated RBC % 2.0 Immature Gran # 0.10 Nucleated RBCs # 0.34 Immature Plt Fraction 0.0 Polychromasia Slight Macrocytosis 1+ Pappenheimer Bodies Few Target Cells Slight Elliptocytes 1+ Absolute Retic Percent Retic Retic Hgb Equivalent Sodium 140 Potassium 4.4 Chloride 108 H Carbon Dioxide 27 Anion Gap 9.4 BUN 10 Creatinine 1.00 GFR Calculation 149 BUN/Creatinine Ratio 10.00 Glucose 90 POC Glucose Calculated Osmolality 277.4 Calcium 9.3 Magnesium 2.0 Total Bilirubin 2.90 H AST 32 ALT 34 Alkaline Phosphatase 80 Lactate Dehydrogenase 425 H Total Protein 7.2 Albumin 4.1 Globulin 3.1 Albumin/Globulin Ratio 1.3 Serum Alcohol < 15 L Blood Type AB POSITIVE Antibody Screen Negative Crossmatch Blood Bank Comment DS: Provider Date of admission: 02/09/17 05:55 Primary care physician: . No PCP Attending physician on admission: Mahogany Longo MD Discharging clinician: Lee Pepe Jr., MD
[2017-02-09] MEDS ORDERED: HYDROXYUREA 500 MG CAPSULE PO SCH (21:00)
== END 2017-02-09 17:00 | disposition home or self-care (01) | DRG 812 ==
LOC: N.ED 04:23 → N.EDINP 05:55 → SUATTDRO 05:55 → N.4E 07:24
PROVIDERS: ADMIT Family Medicine; ATTEND Internal Medicine Nephrology

== ENCOUNTER 2017-03-28 21:46 | Inpatient (IN) ==
[2017-03-28] MEDS ORDERED: SODIUM CHLORIDE 0.9% 1,000 ML IV STA (22:10)
[2017-03-28 22:20] LABS: Basophils # 0.1 10*3/uL (0.0-0.2); Basophils % 0.2 % (0.0-0.8); Eosinophils # 0.2 10*3/uL (0.0-0.87); Hematocrit 22.3 VOL% (42.0-52.0); Immature Granulocytes % 0.8 %; Immature Granulocytes Absolute 0.16 #; Lymphocytes # 6.5 10*3/uL (1.4-4.0); Lymphocytes % 31.7 % (21.2-54.2); Mean Corpuscular HGB Conc 35.9 GM/DL (32-36); Mean Corpuscular Hemoglobin 38 PG (27-34); Mean Corpuscular Volume 105.2 FL (87-102); Mean Platelet Volume 9.8 FL (9.6-12.0); Monocytes # 1.3 10*3/uL (0.11-0.8); Monocytes % 6.5 % (1.7-12.7); NRBC # 0.85 10*3/uL; Neutrophils # 12.3 10*3/uL (1.4-7.4); Neutrophils % 59.8 % (38.7-73.9); Platelet Count 457 T/CUMM (130-400); Red Blood Count 2.12 MC/CUMM (3.8-5.5); White Blood Count 20.6 T/CUMM (4-12)
[2017-03-28] MEDS ORDERED: HYDROmorphone 2 MG/1 ML VIAL IV STA (22:25)
[2017-03-28] MEDS ORDERED: METOCLOPRAMIDE 10 MG/2 ML VIAL IV STA (22:29)
[2017-03-28] MEDS ORDERED: METOCLOPRAMIDE 10 MG/2 ML VIAL ONE (22:30)
[2017-03-28] MEDS ORDERED: HYDROmorphone 2 MG/1 ML VIAL ONE (22:30)
[2017-03-28 22:35] LABS: Albumin 4.4 G/DL (3.4-5.0); Bilirubin,Total 2.3 MG/DL (0.2-1.0); Calcium 9.3 MG/DL (8.5-10.1); Osmolality,Calculated 273.7 MOS/KG (273-304); Potassium 3.5 MMOL/L (3.5-5.1); Total Protein 7.3 G/DL (6.4-8.3)
[2017-03-28] MEDS ORDERED: diphenhydrAMINE 50 MG/1 ML VIAL IV STA (22:57)
[2017-03-28] MEDS ORDERED: diphenhydrAMINE 50 MG/1 ML VIAL ONE (23:17)
[2017-03-28 23:48] LABS: Eosinophils 1 % (0-10); Lymphocytes 29 % (20-55); Nucleated Red Blood Cells 4 (0-5); Segmented Neutrophils 64 % (50-85); Total Cells Counted 100
[2017-03-28 23:49] LABS: Acanthocytes Few; Anisocytosis 2+; Elliptocytes 2+; Macrocytosis 2+; Microcytosis 1+; Ovalocytes 2+; Platelet Estimate Increased; Poikilocytosis 3+; Sickle Cells 2+
[2017-03-28 23:50] LABS: Hypochromasia 2+; Polychromasia Few; Target Cells 2+
[2017-03-28 23:51] LABS: Howell-Jolly Bodies 2+
[2017-03-29] MEDS ORDERED: SODIUM CHLORIDE 0.9% 1,000 ML IV ONE (01:03)
[2017-03-29] MEDS ORDERED: NICOTINE 21 MG/24 HR PATCH TRANSDERM PRN (01:03)
[2017-03-29] MEDS ORDERED: METOCLOPRAMIDE 10 MG/2 ML VIAL IV PRN (01:03)
[2017-03-29] MEDS: HYDROmorphone 2 MG/1 ML VIAL IV PRN ×8 (01:21→22:49)
[2017-03-29] MEDS: diphenhydrAMINE 50 MG/1 ML VIAL IV PRN ×4 (01:26→19:36)
[2017-03-29] MEDS: FOLIC ACID 1 MG TABLET PO SCH ×2 (01:27→20:42)
[2017-03-29] MEDS: HYDROXYUREA 500 MG CAPSULE PO SCH ×2 (01:27→20:41)
[2017-03-29] MEDS: SODIUM CHLORIDE 0.9% 1,000 ML IV SCH (02:12)
[2017-03-29] MEDS: DOCUSATE SODIUM 100 MG CAPSULE PO SCH ×2 (10:24→20:42)
[2017-03-29] MEDS: PANTOPRAZOLE 40 MG TABLET PO SCH (10:24)
[2017-03-29] MEDS: LISINOPRIL 20 MG TABLET PO SCH (10:24)
[2017-03-29] MEDS: ENOXAPARIN 40 MG/0.4 ML SYRINGE SUBCUT SCH (10:25)
[2017-03-29] MEDS: ALPRAZolam 0.5 MG TABLET PO PRN (12:58)
[2017-03-30] MEDS: HYDROmorphone 2 MG/1 ML VIAL IV PRN ×5 (01:45→12:21)
[2017-03-30] MEDS: diphenhydrAMINE 50 MG/1 ML VIAL IV PRN ×3 (01:48→12:21)
[2017-03-30] MEDS: SODIUM CHLORIDE 0.9% 1,000 ML IV SCH (07:38)
[2017-03-30] MEDS: ALPRAZolam 0.5 MG TABLET PO PRN (09:21)
[2017-03-30] MEDS: ENOXAPARIN 40 MG/0.4 ML SYRINGE SUBCUT SCH (09:22)
[2017-03-30] MEDS: DOCUSATE SODIUM 100 MG CAPSULE PO SCH (09:22)
[2017-03-30] MEDS: PANTOPRAZOLE 40 MG TABLET PO SCH (09:22)
[2017-03-30] MEDS: LISINOPRIL 20 MG TABLET PO SCH (09:22)
[2017-03-30 12:11] VITALS: BP 159/102
== END 2017-03-30 12:33 | disposition home or self-care (01) | DRG 812 ==
LOC: N.ED 21:46 → N.EDINP 23:45 → N.2E 03-29 00:19
PROVIDERS: ADMIT Internal Medicine Geriatric Medicine; ATTEND Internal Medicine Geriatric Medicine

== ENCOUNTER 2017-04-16 01:51 | Inpatient (IN) ==
[2017-04-16] MEDS ORDERED: SODIUM CHLORIDE 0.9% 1,000 ML IV STA (02:17)
[2017-04-16] MEDS ORDERED: HYDROmorphone 2 MG/1 ML VIAL IV STA ×3 (02:18→04:05)
[2017-04-16] MEDS ORDERED: diphenhydrAMINE 50 MG/1 ML VIAL IV STA ×2 (02:19→02:41)
[2017-04-16] MEDS ORDERED: HYDROmorphone 2 MG/1 ML VIAL ONE ×2 (02:20→03:15)
[2017-04-16] MEDS ORDERED: diphenhydrAMINE 50 MG/1 ML VIAL ONE (02:41)
[2017-04-16 03:00] LABS: Basophils # 0.1 10*3/uL (0.0-0.2); Basophils % 0.4 % (0.0-0.8); Eosinophils # 0.4 10*3/uL (0.0-0.87); Eosinophils % 1.9 % (0.00-10.9); Hematocrit 20.2 VOL% (42.0-52.0); Hemoglobin 7.2 GM/DL (14.0-18.0); Immature Granulocytes % 0.6 %; Lymphocytes # 7.1 10*3/uL (1.4-4.0); Mean Corpuscular HGB Conc 35.6 GM/DL (32-36); Mean Corpuscular Hemoglobin 38 PG (27-34); Mean Corpuscular Volume 106.3 FL (87-102); Mean Platelet Volume 9.6 FL (9.6-12.0); Monocytes # 1.7 10*3/uL (0.11-0.8); Monocytes % 9.1 % (1.7-12.7); NRBC # 0.12 10*3/uL; Neutrophils # 8.9 10*3/uL (1.4-7.4); Platelet Count 525 T/CUMM (130-400); Red Cell Distribution Width 22.5 % (9.3-17.3); White Blood Count 18.1 T/CUMM (4-12)
[2017-04-16 03:17] LABS: Albumin 4.4 G/DL (3.4-5.0); Bilirubin,Total 2.1 MG/DL (0.2-1.0); Calcium 8.9 MG/DL (8.5-10.1); Osmolality,Calculated 277.5 MOS/KG (273-304); Potassium 4.3 MMOL/L (3.5-5.1); Total Protein 7.2 G/DL (6.4-8.3)
[2017-04-16 03:35] LABS: Barbiturates Screen,Urine Negative (Negative); Benzodiazepines Screen,Urine Negative (Negative); Cannabinoid Screen,Urine Negative (Negative); Opiate Screen,Urine Negative (Negative); Phencyclidine Screen,Urine Negative (Negative)
[2017-04-16] MEDS ORDERED: ACETAMINOPHEN 325 MG TABLET PO PRN (04:38)
[2017-04-16 05:09] LABS: Acanthocytes Few; Elliptocytes 1+; Eosinophils 3 % (0-10); Lymphocytes 37 % (20-55); Nucleated Red Blood Cells 3 (0-5); Ovalocytes 2+; Platelet Estimate Increased; Segmented Neutrophils 51 % (50-85); Sickle Cells 2+; Total Cells Counted 100
[2017-04-16 05:10] LABS: Anisocytosis 2+; Hypochromasia 2+; Macrocytosis 2+; Target Cells 2+
[2017-04-16] MEDS: SODIUM CHLORIDE 0.9% 1,000 ML IV SCH ×2 (05:11→13:44)
[2017-04-16] MEDS: ENOXAPARIN 40 MG/0.4 ML SYRINGE SUBCUT SCH (05:24)
[2017-04-16] MEDS ORDERED: diphenhydrAMINE CAP 50 MG CAPSULE PO SCH (06:00)
[2017-04-16] MEDS: HYDROmorphone 2 MG/1 ML VIAL IV PRN ×6 (06:26→22:05)
[2017-04-16 07:54] LABS: Basophils # 0.1 10*3/uL (0.0-0.2); Basophils % 0.3 % (0.0-0.8); Eosinophils # 0.5 10*3/uL (0.0-0.87); Eosinophils % 2.3 % (0.00-10.9); Immature Granulocytes % 0.5 %; Lymphocytes # 9.5 10*3/uL (1.4-4.0); Lymphocytes % 48.2 % (21.2-54.2); Mean Corpuscular HGB Conc 36.6 GM/DL (32-36); Mean Corpuscular Hemoglobin 39 PG (27-34); Mean Corpuscular Volume 105.4 FL (87-102); Mean Platelet Volume 9.3 FL (9.6-12.0); Monocytes # 1.7 10*3/uL (0.11-0.8); Monocytes % 8.5 % (1.7-12.7); Neutrophils % 40.2 % (38.7-73.9); Platelet Count 431 T/CUMM (130-400); Red Blood Count 1.66 MC/CUMM (3.8-5.5); Red Cell Distribution Width 22.3 % (9.3-17.3); White Blood Count 19.8 T/CUMM (4-12)
[2017-04-16 08:14] LABS: Hemoglobin 6.4 GM/DL (14.0-18.0)
[2017-04-16 08:15] LABS: Hematocrit 17.5 VOL% (42.0-52.0)
[2017-04-16 08:19] LABS: Eosinophils 2 % (0-10); Lymphocytes 48 % (20-55); Platelet Estimate Adequate; Segmented Neutrophils 39 % (50-85); Target Cells Few; Total Cells Counted 100
[2017-04-16 08:20] LABS: Elliptocytes Few; Howell-Jolly Bodies Few; Hypochromasia 1+; Macrocytosis Slight
[2017-04-16 08:21] LABS: Polychromasia Slight; Sickle Cells Slight
[2017-04-16 08:22] LABS: Giant Platelets Few
[2017-04-16 08:32] LABS: Calcium 9.5 MG/DL (8.5-10.1); Osmolality,Calculated 279.3 MOS/KG (273-304); Potassium 4.6 MMOL/L (3.5-5.1)
[2017-04-16] MEDS ORDERED: SODIUM CHLORIDE 0.9% 1,000 ML IV PRN (08:45)
[2017-04-16] MEDS: diphenhydrAMINE CAP 50 MG CAPSULE PO SCH ×3 (08:51→18:55)
[2017-04-16] MEDS: ALPRAZolam 0.5 MG TABLET PO PRN ×2 (08:51→22:15)
[2017-04-16] MEDS ORDERED: diphenhydrAMINE 50 MG/1 ML VIAL IV ONE (13:00)
[2017-04-16] MEDS: HYDROXYUREA 500 MG CAPSULE PO SCH (22:09)
[2017-04-16] MEDS: FOLIC ACID 1 MG TABLET PO SCH (22:09)
[2017-04-17] MEDS: diphenhydrAMINE CAP 50 MG CAPSULE PO SCH ×5 (00:33→23:51)
[2017-04-17] MEDS: HYDROmorphone 2 MG/1 ML VIAL IV PRN ×8 (01:42→23:51)
[2017-04-17 04:39] LABS: Basophils # 0.1 10*3/uL (0.0-0.2); Basophils % 0.5 % (0.0-0.8); Eosinophils # 0.6 10*3/uL (0.0-0.87); Eosinophils % 2.8 % (0.00-10.9); Hemoglobin 8.3 GM/DL (14.0-18.0); Immature Granulocytes % 0.7 %; Immature Granulocytes Absolute 0.16 #; Lymphocytes # 7.2 10*3/uL (1.4-4.0); Lymphocytes % 33.5 % (21.2-54.2); Mean Corpuscular HGB Conc 36.1 GM/DL (32-36); Mean Corpuscular Hemoglobin 35 PG (27-34); Mean Corpuscular Volume 97.9 FL (87-102); Mean Platelet Volume 9.9 FL (9.6-12.0); Monocytes # 1.7 10*3/uL (0.11-0.8); Monocytes % 8.1 % (1.7-12.7); NRBC # 0.09 10*3/uL; Neutrophils # 11.8 10*3/uL (1.4-7.4); Neutrophils % 54.4 % (38.7-73.9); Platelet Count 510 T/CUMM (130-400); Red Blood Count 2.35 MC/CUMM (3.8-5.5); Red Cell Distribution Width 23.8 % (9.3-17.3); White Blood Count 21.6 T/CUMM (4-12)
[2017-04-17 05:03] LABS: Calcium 9.1 MG/DL (8.5-10.1); Osmolality,Calculated 276.5 MOS/KG (273-304)
[2017-04-17] MEDS: SODIUM CHLORIDE 0.9% 1,000 ML IV SCH (08:00)
[2017-04-17] MEDS: ENOXAPARIN 40 MG/0.4 ML SYRINGE SUBCUT SCH (08:50)
[2017-04-17] MEDS: amLODIPine 10 MG TABLET PO SCH (10:22)
[2017-04-17] MEDS ORDERED: hydrALAZINE 20 MG/1 ML VIAL IV PRN (13:54)
[2017-04-17] MEDS: HYDROXYUREA 500 MG CAPSULE PO SCH (20:50)
[2017-04-17] MEDS: FOLIC ACID 1 MG TABLET PO SCH (20:50)
[2017-04-18] MEDS: HYDROmorphone 2 MG/1 ML VIAL IV PRN ×3 (03:00→09:42)
[2017-04-18 05:40] LABS: Basophils # 0.1 10*3/uL (0.0-0.2); Basophils % 0.4 % (0.0-0.8); Eosinophils # 0.5 10*3/uL (0.0-0.87); Eosinophils % 3.2 % (0.00-10.9); Hematocrit 20.6 VOL% (42.0-52.0); Hemoglobin 7.7 GM/DL (14.0-18.0); Immature Granulocytes % 0.5 %; Immature Granulocytes Absolute 0.09 #; Lymphocytes # 5.8 10*3/uL (1.4-4.0); Lymphocytes % 34.1 % (21.2-54.2); Mean Corpuscular HGB Conc 37.4 GM/DL (32-36); Mean Corpuscular Hemoglobin 36 PG (27-34); Mean Corpuscular Volume 95.8 FL (87-102); Monocytes # 1.1 10*3/uL (0.11-0.8); Monocytes % 6.4 % (1.7-12.7); NRBC # 0.09 10*3/uL; Neutrophils # 9.3 10*3/uL (1.4-7.4); Neutrophils % 55.4 % (38.7-73.9); Platelet Count 460 T/CUMM (130-400); Red Blood Count 2.15 MC/CUMM (3.8-5.5); Red Cell Distribution Width 22.5 % (9.3-17.3); White Blood Count 16.9 T/CUMM (4-12)
[2017-04-18] MEDS: diphenhydrAMINE CAP 50 MG CAPSULE PO SCH (05:57)
[2017-04-18 06:09] LABS: Calcium 8.8 MG/DL (8.5-10.1); Osmolality,Calculated 273.7 MOS/KG (273-304); Potassium 4.4 MMOL/L (3.5-5.1)
[2017-04-18 08:16] VITALS: BP 148/81
[2017-04-18 08:21] LABS: Elliptocytes 1+; Macrocytosis 1+; Microcytosis 2+; Target Cells Slight
[2017-04-18] MEDS: ENOXAPARIN 40 MG/0.4 ML SYRINGE SUBCUT SCH (09:42)
[2017-04-18] MEDS: SODIUM CHLORIDE 0.9% 1,000 ML IV SCH (09:43)
[2017-04-18] MEDS: amLODIPine 10 MG TABLET PO SCH (09:43)
== END 2017-04-18 11:14 | disposition home or self-care (01) | DRG 812 ==
LOC: N.ED 01:51 → N.EDINP 04:17 → SUATTDRO 04:17 → N.2E 04:33
PROVIDERS: ADMIT Internal Medicine; ATTEND Internal Medicine

== ENCOUNTER 2017-05-28 21:00 | Inpatient (IN) ==
[2017-05-28] MEDS ORDERED: SODIUM CHLORIDE 0.9% 1,000 ML IV STA (21:43)
[2017-05-28] MEDS ORDERED: HYDROmorphone 2 MG/1 ML VIAL IV STA ×2 (21:43→23:33)
[2017-05-28] MEDS ORDERED: HYDROmorphone 2 MG/1 ML VIAL ONE ×2 (22:12→23:41)
[2017-05-28 22:42] LABS: Basophils # 0.1 10*3/uL (0.0-0.2); Basophils % 0.3 % (0.0-0.8); Eosinophils # 0.5 10*3/uL (0.0-0.87); Eosinophils % 2.8 % (0.00-10.9); Hematocrit 22.2 VOL% (42.0-52.0); Hemoglobin 7.8 GM/DL (14.0-18.0); Immature Granulocytes % 0.5 %; Lymphocytes # 6.9 10*3/uL (1.4-4.0); Lymphocytes % 37.8 % (21.2-54.2); Mean Corpuscular HGB Conc 35.1 GM/DL (32-36); Mean Corpuscular Hemoglobin 36 PG (27-34); Mean Corpuscular Volume 102.3 FL (87-102); Mean Platelet Volume 10.1 FL (9.6-12.0); Monocytes # 1.2 10*3/uL (0.11-0.8); Monocytes % 6.8 % (1.7-12.7); NRBC # 0.09 10*3/uL; Neutrophils # 9.5 10*3/uL (1.4-7.4); Neutrophils % 51.8 % (38.7-73.9); Platelet Count 570 T/CUMM (130-400); Red Blood Count 2.17 MC/CUMM (3.8-5.5); Red Cell Distribution Width 19.4 % (9.3-17.3); White Blood Count 18.4 T/CUMM (4-12)
[2017-05-28 22:51] LABS: Apearance,Urine CLEAR (Clear); Bilirubin,Urine Negative (Negative); Blood, Urine Small mg/dL (Negative); Glucose,Urine (UA) Negative (Negative); Ketones,Urine Negative (Negative); Mucus,Urine Occasional /LPF (Occasional); Nitrite,Urine Negative (Negative); Protein,Urine 30 MG/DL; RBC,Urine 1 /HPF (0-4); Urine Color Yellow (Yellow); Urine Specific Gravity 1.009 (1.001-1.035); WBC,Urine <1 /HPF (0-6)
[2017-05-28] MEDS ORDERED: LEVOFLOXACIN INJ 750 MG in PREMIX 1 EACH IV STA (22:52)
[2017-05-28 22:55] LABS: Barbiturates Screen,Urine Negative (Negative); Benzodiazepines Screen,Urine Negative (Negative); Cannabinoid Screen,Urine Negative (Negative); Opiate Screen,Urine Positive (Negative); Phencyclidine Screen,Urine Negative (Negative)
[2017-05-28 23:05] LABS: Albumin 4.3 G/DL (3.4-5.0); Bilirubin,Total 2.3 MG/DL (0.2-1.0); Calcium 9.5 MG/DL (8.5-10.1); Osmolality,Calculated 276.4 MOS/KG (273-304); Potassium 4.6 MMOL/L (3.5-5.1)
[2017-05-28] MEDS ORDERED: diphenhydrAMINE 50 MG/1 ML VIAL IV STA (23:07)
[2017-05-28] MEDS ORDERED: LEVOFLOXACIN INJ 150 ML IV ONE (23:10)
[2017-05-28] MEDS ORDERED: diphenhydrAMINE 50 MG/1 ML VIAL ONE (23:10)
[2017-05-28] MEDS ORDERED: ALPRAZolam 0.5 MG TABLET PO PRN (23:41)
[2017-05-28 23:58] LABS: Eosinophils 6 % (0-10); Lymphocytes 42 % (20-55); Segmented Neutrophils 46 % (50-85); Total Cells Counted 100
[2017-05-29 00:03] LABS: Platelet Estimate Increased
[2017-05-29 00:05] LABS: Target Cells 1+
[2017-05-29 00:07] LABS: Elliptocytes 2+; Hypochromasia 2+
[2017-05-29 00:11] LABS: Polychromasia Few
[2017-05-29 00:13] LABS: Anisocytosis Slight; Microcytosis Slight
[2017-05-29] MEDS: HYDROmorphone 2 MG/1 ML VIAL IV PRN ×8 (01:25→22:15)
[2017-05-29] MEDS ORDERED: HYDROmorphone 2 MG/1 ML VIAL ONE ×2 (01:27→04:21)
[2017-05-29] MEDS ORDERED: ALPRAZolam 0.5 MG TABLET ONE (01:39)
[2017-05-29] MEDS: SODIUM CHLORIDE 0.9% 1,000 ML IV SCH ×2 (01:48→09:59)
[2017-05-29] MEDS ORDERED: oxyCODONE/ACETAMINOPHEN 5-325 MG TABLET ONE (03:01)
[2017-05-29] MEDS: oxyCODONE/ACETAMINOPHEN 5-325 MG TABLET PO PRN ×3 (03:04→23:22)
[2017-05-29] MEDS ORDERED: diphenhydrAMINE CAP 50 MG CAPSULE PO PRN (05:51)
[2017-05-29] MEDS ORDERED: INFLUENZA VIRUS VACCINE 0.5 ML SYRINGE IM ONE (06:30)
[2017-05-29 06:59] LABS: Basophils # 0.1 10*3/uL (0.0-0.2); Basophils % 0.2 % (0.0-0.8); Eosinophils # 0.5 10*3/uL (0.0-0.87); Eosinophils % 2.6 % (0.00-10.9); Hematocrit 19.6 VOL% (42.0-52.0); Immature Granulocytes % 0.7 %; Immature Granulocytes Absolute 0.14 #; Lymphocytes # 10.1 10*3/uL (1.4-4.0); Lymphocytes % 49.4 % (21.2-54.2); Mean Corpuscular HGB Conc 35.7 GM/DL (32-36); Mean Corpuscular Hemoglobin 36 PG (27-34); Mean Corpuscular Volume 101.6 FL (87-102); Mean Platelet Volume 10.3 FL (9.6-12.0); Monocytes # 1.7 10*3/uL (0.11-0.8); Monocytes % 8.5 % (1.7-12.7); NRBC # 0.07 10*3/uL; Neutrophils # 7.9 10*3/uL (1.4-7.4); Neutrophils % 38.6 % (38.7-73.9); Platelet Count 539 T/CUMM (130-400); Red Blood Count 1.93 MC/CUMM (3.8-5.5); Red Cell Distribution Width 19.4 % (9.3-17.3); White Blood Count 20.5 T/CUMM (4-12)
[2017-05-29 07:24] LABS: Lymphocytes 54 % (20-55); Nucleated Red Blood Cells 2 (0-5); Segmented Neutrophils 39 % (50-85); Total Cells Counted 100
[2017-05-29 07:25] LABS: Hypochromasia 1+; Macrocytosis 1+; Polychromasia Slight; Sickle Cells Few
[2017-05-29 07:26] LABS: Ovalocytes Few; Target Cells Few
[2017-05-29 07:27] LABS: Pappenheimer Bodies Few
[2017-05-29 07:28] LABS: Giant Platelets Few; Platelet Estimate Increased
[2017-05-29] MEDS ORDERED: SODIUM CHLORIDE 0.9% 1,000 ML IV PRN (10:10)
[2017-05-29] MEDS: PANTOPRAZOLE 40 MG TABLET PO SCH (10:22)
[2017-05-29] MEDS ORDERED: FOLIC ACID 1 MG TABLET PO SCH (21:00)
[2017-05-29] MEDS ORDERED: HYDROXYUREA 500 MG CAPSULE PO SCH (21:00)
[2017-05-30] MEDS: HYDROmorphone 2 MG/1 ML VIAL IV PRN ×4 (00:23→08:08)
[2017-05-30] MEDS ORDERED: diphenhydrAMINE 50 MG/1 ML VIAL IM ONE (03:00)
[2017-05-30 05:41] LABS: Basophils # 0.1 10*3/uL (0.0-0.2); Basophils % 0.4 % (0.0-0.8); Eosinophils # 0.7 10*3/uL (0.0-0.87); Eosinophils % 3.2 % (0.00-10.9); Hematocrit 24.8 VOL% (42.0-52.0); Immature Granulocytes % 0.7 %; Immature Granulocytes Absolute 0.15 #; Lymphocytes # 8.7 10*3/uL (1.4-4.0); Lymphocytes % 39.8 % (21.2-54.2); Mean Corpuscular HGB Conc 35.9 GM/DL (32-36); Mean Corpuscular Hemoglobin 35 PG (27-34); Mean Corpuscular Volume 98.4 FL (87-102); Mean Platelet Volume 10.3 FL (9.6-12.0); Monocytes # 1.4 10*3/uL (0.11-0.8); Monocytes % 6.3 % (1.7-12.7); NRBC # 0.12 10*3/uL; Neutrophils # 10.9 10*3/uL (1.4-7.4); Neutrophils % 49.6 % (38.7-73.9); Platelet Count 535 T/CUMM (130-400); Red Blood Count 2.52 MC/CUMM (3.8-5.5); Red Cell Distribution Width 19.9 % (9.3-17.3); White Blood Count 21.9 T/CUMM (4-12)
[2017-05-30 05:44] LABS: Hemoglobin 8.9 GM/DL (14.0-18.0)
[2017-05-30 06:04] LABS: Elliptocytes Few; Eosinophils 8 % (0-10); Lymphocytes 36 % (20-55); Macrocytosis Slight; Platelet Estimate Increased; Polychromasia Slight; Segmented Neutrophils 52 % (50-85); Target Cells Few; Total Cells Counted 100
[2017-05-30 06:05] LABS: Giant Platelets Few; Hypochromasia 1+; Pappenheimer Bodies Few; Sickle Cells Few
[2017-05-30 06:21] LABS: Calcium 9.4 MG/DL (8.5-10.1); Osmolality,Calculated 274.5 MOS/KG (273-304); Potassium 4.4 MMOL/L (3.5-5.1)
[2017-05-30 07:28] VITALS: BP 134/86
[2017-05-30] MEDS: PANTOPRAZOLE 40 MG TABLET PO SCH (08:31)
[2017-05-30] MEDS ORDERED: HYDROmorphone 2 MG/1 ML VIAL IV PRN (08:56)
[2017-05-30] MEDS ORDERED: diphenhydrAMINE CAP 25 MG CAPSULE PO PRN (08:56)
== END 2017-05-30 09:10 | disposition left against medical advice (07) | DRG 812 ==
LOC: N.ED 21:00 → N.EDINP 23:36 → N.3E 05-29 04:46

== ENCOUNTER 2017-06-12 03:03 | Inpatient (IN) ==
[2017-06-12] MEDS ORDERED: SODIUM CHLORIDE 0.9% 1,000 ML IV STA (03:42)
[2017-06-12 04:03] LABS: Basophils # 0.1 10*3/uL (0.0-0.2); Basophils % 0.5 % (0.0-0.8); Eosinophils # 0.7 10*3/uL (0.0-0.87); Eosinophils % 2.8 % (0.00-10.9); Hematocrit 22.2 VOL% (42.0-52.0); Hemoglobin 7.5 GM/DL (14.0-18.0); Immature Granulocytes % 0.6 %; Immature Granulocytes Absolute 0.16 #; Lymphocytes # 9.4 10*3/uL (1.4-4.0); Lymphocytes % 37.7 % (21.2-54.2); Mean Corpuscular HGB Conc 33.8 GM/DL (32-36); Mean Corpuscular Hemoglobin 33 PG (27-34); Mean Corpuscular Volume 97.8 FL (87-102); Mean Platelet Volume 10.6 FL (9.6-12.0); Monocytes # 2.1 10*3/uL (0.11-0.8); Monocytes % 8.2 % (1.7-12.7); NRBC # 0.06 10*3/uL; Neutrophils # 12.5 10*3/uL (1.4-7.4); Neutrophils % 50.2 % (38.7-73.9); Platelet Count 612 T/CUMM (130-400); Red Blood Count 2.27 MC/CUMM (3.8-5.5); Red Cell Distribution Width 18.7 % (9.3-17.3)
[2017-06-12 04:05] LABS: PT Patient Result 10.8 SECS; Partial Thromboplastin Time 26.6 SECS (0-40)
[2017-06-12 04:13] LABS: Albumin 4.5 G/DL (3.4-5.0); Bilirubin,Total 2.2 MG/DL (0.2-1.0); Calcium 9.7 MG/DL (8.5-10.1); Osmolality,Calculated 278.4 MOS/KG (273-304); Potassium 4.1 MMOL/L (3.5-5.1); Total Protein 7.5 G/DL (6.4-8.3)
[2017-06-12] MEDS ORDERED: HYDROmorphone 2 MG/1 ML VIAL IV STA (04:35)
[2017-06-12] MEDS ORDERED: diphenhydrAMINE 50 MG/1 ML VIAL IV STA (04:35)
[2017-06-12] MEDS ORDERED: HYDROmorphone 2 MG/1 ML VIAL ONE (04:39)
[2017-06-12] MEDS ORDERED: diphenhydrAMINE 50 MG/1 ML VIAL ONE (04:39)
[2017-06-12 05:03] LABS: Hypochromasia 1+; Target Cells 2+
[2017-06-12 05:04] LABS: Platelet Estimate Increased
[2017-06-12 05:10] LABS: Howell-Jolly Bodies Few
[2017-06-12 05:11] LABS: Elliptocytes Few
[2017-06-12 05:12] LABS: Anisocytosis 1+; Giant Platelets Few; Microcytosis 1+; Polychromasia Few
[2017-06-12] MEDS ORDERED: ONDANSETRON 4 MG/2 ML VIAL ONE (05:42)
[2017-06-12] MEDS: HYDROmorphone 2 MG/1 ML VIAL IV PRN ×6 (07:58→22:33)
[2017-06-12] MEDS: ALPRAZolam 0.5 MG TABLET PO PRN ×2 (07:59→20:05)
[2017-06-12] MEDS: diphenhydrAMINE CAP 50 MG CAPSULE PO PRN (07:59)
[2017-06-12] MEDS: SODIUM CHLORIDE 0.9% 1,000 ML IV SCH ×2 (08:00→17:20)
[2017-06-12] MEDS: ENOXAPARIN 40 MG/0.4 ML SYRINGE SUBCUT SCH (09:54)
[2017-06-12] MEDS: FOLIC ACID 1 MG TABLET PO SCH (20:06)
[2017-06-12] MEDS: HYDROXYUREA 500 MG CAPSULE PO SCH (20:06)
[2017-06-13] MEDS: HYDROmorphone 2 MG/1 ML VIAL IV PRN ×7 (01:36→21:23)
[2017-06-13] MEDS: SODIUM CHLORIDE 0.9% 1,000 ML IV SCH ×3 (01:38→11:04)
[2017-06-13] MEDS: diphenhydrAMINE CAP 50 MG CAPSULE PO PRN ×2 (02:25→09:25)
[2017-06-13] MEDS: ALPRAZolam 0.5 MG TABLET PO PRN (02:25)
[2017-06-13 07:40] LABS: Basophils # 0.1 10*3/uL (0.0-0.2); Basophils % 0.4 % (0.0-0.8); Eosinophils # 1.4 10*3/uL (0.0-0.87); Hematocrit 19.4 VOL% (42.0-52.0); Hemoglobin 6.7 GM/DL (14.0-18.0); Immature Granulocytes % 0.6 %; Immature Granulocytes Absolute 0.18 #; Lymphocytes # 13.3 10*3/uL (1.4-4.0); Mean Corpuscular HGB Conc 34.5 GM/DL (32-36); Mean Corpuscular Hemoglobin 34 PG (27-34); Mean Platelet Volume 10.4 FL (9.6-12.0); Monocytes # 2.1 10*3/uL (0.11-0.8); Monocytes % 7.4 % (1.7-12.7); NRBC # 0.11 10*3/uL; Neutrophils # 10.7 10*3/uL (1.4-7.4); Neutrophils % 38.6 % (38.7-73.9); Platelet Count 537 T/CUMM (130-400); Red Blood Count 1.96 MC/CUMM (3.8-5.5); Red Cell Distribution Width 19.9 % (9.3-17.3); White Blood Count 27.8 T/CUMM (4-12)
[2017-06-13 08:04] LABS: Eosinophils 11 % (0-10); Lymphocytes 37 % (20-55); Nucleated Red Blood Cells 2 (0-5); Segmented Neutrophils 48 % (50-85); Total Cells Counted 100
[2017-06-13 08:05] LABS: Hypochromasia 1+; Microcytosis 2+; Polychromasia Slight; Sickle Cells 2+; Target Cells 1+
[2017-06-13 08:06] LABS: Pappenheimer Bodies Few; Platelet Estimate Increased
[2017-06-13 08:16] LABS: Calcium 9.2 MG/DL (8.5-10.1); Osmolality,Calculated 274.7 MOS/KG (273-304); Potassium 4.2 MMOL/L (3.5-5.1)
[2017-06-13] MEDS: ENOXAPARIN 40 MG/0.4 ML SYRINGE SUBCUT SCH (09:24)
[2017-06-13 12:40] LABS: Apearance,Urine CLEAR (Clear); Bilirubin,Urine Negative (Negative); Blood, Urine Small mg/dL (Negative); Glucose,Urine (UA) Negative (Negative); Ketones,Urine Negative (Negative); Mucus,Urine Occasional /LPF (Occasional); Nitrite,Urine Negative (Negative); Protein,Urine 30 MG/DL; Urine Color Yellow (Yellow); Urine Specific Gravity 1.008 (1.001-1.035); WBC,Urine <1 /HPF (0-6)
[2017-06-13] MEDS ORDERED: SODIUM CHLORIDE 0.9% 1,000 ML IV PRN (13:12)
[2017-06-13 13:21] LABS: Barbiturates Screen,Urine Negative (Negative); Benzodiazepines Screen,Urine Positive (Negative); Cannabinoid Screen,Urine Negative (Negative); Phencyclidine Screen,Urine Negative (Negative)
[2017-06-13] MEDS ORDERED: ACETAMINOPHEN 325 MG TABLET PO ONE (15:46)
[2017-06-13] MEDS ORDERED: diphenhydrAMINE 50 MG/1 ML VIAL IV ONE (15:46)
[2017-06-13] MEDS: HYDROXYUREA 500 MG CAPSULE PO SCH (21:21)
[2017-06-13] MEDS: FOLIC ACID 1 MG TABLET PO SCH (21:21)
[2017-06-14] LABS: Hematocrit 24.9 VOL% (42.0-52.0)
[2017-06-14 00:14] LABS: Hemoglobin 8.8 GM/DL (14.0-18.0)
[2017-06-14] MEDS: HYDROmorphone 2 MG/1 ML VIAL IV PRN ×6 (00:22→16:22)
[2017-06-14] MEDS: SODIUM CHLORIDE 0.9% 1,000 ML IV SCH ×3 (03:54→16:21)
[2017-06-14 07:17] LABS: Basophils # 0.1 10*3/uL (0.0-0.2); Basophils % 0.4 % (0.0-0.8); Eosinophils # 1.5 10*3/uL (0.0-0.87); Eosinophils % 5.8 % (0.00-10.9); Hematocrit 24.5 VOL% (42.0-52.0); Hemoglobin 8.7 GM/DL (14.0-18.0); Immature Granulocytes % 0.6 %; Immature Granulocytes Absolute 0.15 #; Lymphocytes # 10.2 10*3/uL (1.4-4.0); Lymphocytes % 40.5 % (21.2-54.2); Mean Corpuscular HGB Conc 35.5 GM/DL (32-36); Mean Corpuscular Hemoglobin 34 PG (27-34); Mean Platelet Volume 10.2 FL (9.6-12.0); Monocytes # 1.7 10*3/uL (0.11-0.8); Monocytes % 6.6 % (1.7-12.7); NRBC # 0.15 10*3/uL; Neutrophils # 11.7 10*3/uL (1.4-7.4); Neutrophils % 46.1 % (38.7-73.9); Platelet Count 521 T/CUMM (130-400); Red Blood Count 2.58 MC/CUMM (3.8-5.5); Red Cell Distribution Width 20.3 % (9.3-17.3); White Blood Count 25.3 T/CUMM (4-12)
[2017-06-14 08:43] LABS: Eosinophils 3 % (0-10); Hypochromasia 1+; Lymphocytes 47 % (20-55); Total Cells Counted 100
[2017-06-14 08:44] LABS: Anisocytosis 1+; Macrocytosis 1+
[2017-06-14 08:45] LABS: Howell-Jolly Bodies Slight; Pappenheimer Bodies Few; Polychromasia Slight; Target Cells Few
[2017-06-14 08:46] LABS: Ovalocytes Few; Platelet Estimate Increased; Sickle Cells Few
[2017-06-14 08:47] LABS: Segmented Neutrophils 47 % (50-85)
[2017-06-14] MEDS: ENOXAPARIN 40 MG/0.4 ML SYRINGE SUBCUT SCH (09:22)
[2017-06-14] MEDS: ALPRAZolam 0.5 MG TABLET PO PRN (11:33)
[2017-06-14 16:54] VITALS: BP 132/77
== END 2017-06-14 20:00 | disposition home or self-care (01) | DRG 812 ==
LOC: N.EDINP 03:03 → N.ED 03:03 → SUATTDRO 06:13 → N.EDINP 07:35 → N.5E 07:47
PROVIDERS: ADMIT Internal Medicine; ATTEND Internal Medicine

== ENCOUNTER 2017-07-22 00:47 | Inpatient (IN) ==
[2017-07-22] MEDS ORDERED: MORPHINE 2 MG/1 ML SYRINGE ONE ×2 (01:21→01:22)
[2017-07-22] MEDS ORDERED: ONDANSETRON 4 MG/2 ML VIAL ONE (01:21)
[2017-07-22] MEDS ORDERED: KETOROLAC 30 MG/1 ML VIAL ONE (01:22)
[2017-07-22] MEDS ORDERED: HYDROmorphone 2 MG/1 ML VIAL IV STA ×4 (01:24→04:06)
[2017-07-22] MEDS ORDERED: SODIUM CHLORIDE 0.9% 1,000 ML IV STA (01:24)
[2017-07-22] MEDS ORDERED: METOCLOPRAMIDE 10 MG/2 ML VIAL IV STA (01:26)
[2017-07-22] MEDS ORDERED: diphenhydrAMINE 50 MG/1 ML VIAL IV STA (01:40)
[2017-07-22] MEDS ORDERED: PROMETHAZINE 25 MG/1 ML VIAL ONE (01:47)
[2017-07-22] MEDS ORDERED: HYDROmorphone 2 MG/1 ML VIAL ONE ×5 (01:48→04:45)
[2017-07-22] MEDS ORDERED: diphenhydrAMINE 50 MG/1 ML VIAL ONE (01:58)
[2017-07-22 02:03] LABS: Apearance,Urine CLEAR (Clear); Bilirubin,Urine Negative (Negative); Blood, Urine Negative (Negative); Glucose,Urine (UA) Negative (Negative); Ketones,Urine Negative (Negative); Nitrite,Urine Negative (Negative); Protein,Urine Negative; RBC,Urine <1 /HPF (0-4); Urine Color Yellow (Yellow); Urine Specific Gravity 1.008 (1.001-1.035); WBC,Urine <1 /HPF (0-6)
[2017-07-22 02:09] LABS: Barbiturates Screen,Urine Negative (Negative); Benzodiazepines Screen,Urine Negative (Negative); Cannabinoid Screen,Urine Negative (Negative); Opiate Screen,Urine Positive (Negative); Phencyclidine Screen,Urine Negative (Negative)
[2017-07-22 02:16] LABS: Basophils # 0.1 10*3/uL (0.0-0.2); Basophils % 0.4 % (0.0-0.8); Eosinophils # 0.7 10*3/uL (0.0-0.87); Eosinophils % 3.4 % (0.00-10.9); Hematocrit 20.5 VOL% (42.0-52.0); Hemoglobin 7.2 GM/DL (14.0-18.0); Immature Granulocytes % 0.5 %; Immature Granulocytes Absolute 0.09 #; Lymphocytes # 7.6 10*3/uL (1.4-4.0); Lymphocytes % 40.1 % (21.2-54.2); Mean Corpuscular HGB Conc 35.1 GM/DL (32-36); Mean Corpuscular Hemoglobin 34 PG (27-34); Mean Corpuscular Volume 95.8 FL (87-102); Mean Platelet Volume 9.9 FL (9.6-12.0); Monocytes # 1.7 10*3/uL (0.11-0.8); Monocytes % 9.2 % (1.7-12.7); NRBC # 0.08 10*3/uL; Neutrophils # 8.8 10*3/uL (1.4-7.4); Neutrophils % 46.4 % (38.7-73.9); Platelet Count 429 T/CUMM (130-400); Red Blood Count 2.14 MC/CUMM (3.8-5.5); Red Cell Distribution Width 19.9 % (9.3-17.3)
[2017-07-22 02:35] LABS: Alanine Aminotransferase 40 U/L (16-61); Albumin 4.6 G/DL (3.4-5.0); Alkaline Phosphatase 86 U/L (45-117); Amylase 77 U/L (25-115); Aspartate Amino Transferase 44 U/L (0-37); Blood Urea Nitrogen 19 MG/DL (7-18); Calcium 9.5 MG/DL (8.5-10.1); Glucose 85 MG/DL (74-106); Osmolality,Calculated 281.3 MOS/KG (273-304); Potassium 4.3 MMOL/L (3.5-5.1); Sodium 141 MMOL/L (136-145); Total Protein 7.3 G/DL (6.4-8.3); Troponin I Only < 0.015 NG/ML (0.00-0.045)
[2017-07-22 02:38] LABS: Lactic Acid 0.4 MMOL/L (0.4-2.0)
[2017-07-22 02:46] LABS: Band Neutrophils 2 % (0-10); Lymphocytes 42 % (20-55); Metamyelocytes 2 %; Segmented Neutrophils 53 % (50-85); Total Cells Counted 100
[2017-07-22 02:49] LABS: Anisocytosis 2+
[2017-07-22 02:50] LABS: Poikilocytosis 2+
[2017-07-22 02:51] LABS: Nucleated Red Blood Cells 1 (0-5); Polychromasia Slight
[2017-07-22 02:52] LABS: Sickle Cells 1+; Target Cells Slight
[2017-07-22] MEDS ORDERED: ALPRAZolam 0.5 MG TABLET PO PRN (04:25)
[2017-07-22] MEDS ORDERED: diphenhydrAMINE CAP 50 MG CAPSULE PO PRN (04:25)
[2017-07-22] MEDS: SODIUM CHLORIDE 0.9% 1,000 ML IV SCH ×2 (06:23→14:30)
[2017-07-22] MEDS: HYDROmorphone 2 MG/1 ML VIAL IV PRN ×6 (07:51→22:55)
[2017-07-22 08:48] LABS: Basophils % 0.1 % (0.0-0.8); Eosinophils # 0.7 10*3/uL (0.0-0.87); Eosinophils % 3.3 % (0.00-10.9); Hematocrit 18.7 VOL% (42.0-52.0); Immature Granulocytes % 0.4 %; Immature Granulocytes Absolute 0.09 #; Lymphocytes # 9.9 10*3/uL (1.4-4.0); Lymphocytes % 48.4 % (21.2-54.2); Mean Corpuscular HGB Conc 37.4 GM/DL (32-36); Mean Corpuscular Hemoglobin 35 PG (27-34); Mean Corpuscular Volume 92.1 FL (87-102); Mean Platelet Volume 9.9 FL (9.6-12.0); Monocytes # 1.8 10*3/uL (0.11-0.8); Monocytes % 8.9 % (1.7-12.7); NRBC # 0.07 10*3/uL; Neutrophils # 7.9 10*3/uL (1.4-7.4); Neutrophils % 38.9 % (38.7-73.9); Platelet Count 414 T/CUMM (130-400); Red Blood Count 2.03 MC/CUMM (3.8-5.5); Red Cell Distribution Width 19.5 % (9.3-17.3); White Blood Count 20.5 T/CUMM (4-12)
[2017-07-22 09:10] LABS: Elliptocytes Few; Eosinophils 2 % (0-10); Hypochromasia 1+; Lymphocytes 54 % (20-55); Platelet Estimate Adequate; Segmented Neutrophils 34 % (50-85); Sickle Cells 1+; Total Cells Counted 100
[2017-07-22 09:11] LABS: Giant Platelets Few; Howell-Jolly Bodies Few; Macrocytosis Slight; Polychromasia Slight; Target Cells Few
[2017-07-22] MEDS: oxyCODONE/ACETAMINOPHEN 5-325 MG TABLET PO PRN ×2 (11:54→18:00)
[2017-07-22] MEDS ORDERED: SODIUM CHLORIDE 0.9% 1,000 ML IV PRN (13:30)
[2017-07-22] MEDS ORDERED: diphenhydrAMINE 50 MG/1 ML VIAL IV ONE (14:33)
[2017-07-22] MEDS ORDERED: ACETAMINOPHEN 325 MG TABLET PO PRN (14:33)
[2017-07-22] MEDS ORDERED: ACETAMINOPHEN 325 MG TABLET PO ONE (14:33)
[2017-07-22] MEDS: HYDROXYUREA 500 MG CAPSULE PO SCH (21:53)
[2017-07-22] MEDS: FOLIC ACID 1 MG TABLET PO SCH (21:54)
[2017-07-23] MEDS: HYDROmorphone 2 MG/1 ML VIAL IV PRN ×9 (01:50→23:50)
[2017-07-23] MEDS: SODIUM CHLORIDE 0.9% 1,000 ML IV SCH ×2 (02:30→15:00)
[2017-07-23] MEDS: oxyCODONE/ACETAMINOPHEN 5-325 MG TABLET PO PRN ×4 (03:44→22:32)
[2017-07-23 06:41] LABS: Basophils # 0.1 10*3/uL (0.0-0.2); Basophils % 0.4 % (0.0-0.8); Eosinophils # 0.7 10*3/uL (0.0-0.87); Eosinophils % 3.1 % (0.00-10.9); Hematocrit 24.5 VOL% (42.0-52.0); Hemoglobin 8.7 GM/DL (14.0-18.0); Immature Granulocytes % 0.6 %; Immature Granulocytes Absolute 0.13 #; Lymphocytes # 8.8 10*3/uL (1.4-4.0); Lymphocytes % 42.5 % (21.2-54.2); Mean Corpuscular HGB Conc 35.5 GM/DL (32-36); Mean Corpuscular Hemoglobin 33 PG (27-34); Mean Corpuscular Volume 92.5 FL (87-102); Mean Platelet Volume 10.1 FL (9.6-12.0); Monocytes # 1.8 10*3/uL (0.11-0.8); Monocytes % 8.7 % (1.7-12.7); Neutrophils # 9.2 10*3/uL (1.4-7.4); Neutrophils % 44.7 % (38.7-73.9); Platelet Count 396 T/CUMM (130-400); Red Blood Count 2.65 MC/CUMM (3.8-5.5); Red Cell Distribution Width 19.9 % (9.3-17.3); White Blood Count 20.7 T/CUMM (4-12)
[2017-07-23 07:03] LABS: Elliptocytes Few; Giant Platelets Few; Hypochromasia 1+; Macrocytosis Slight; Ovalocytes Slight; Platelet Estimate Adequate; Polychromasia Slight; Sickle Cells 1+; Target Cells Few
[2017-07-23 07:04] LABS: Howell-Jolly Bodies Slight
[2017-07-23] MEDS: cefTRIAXone 1,000 MG in SYRINGE 1 EACH IV SCH (09:19)
[2017-07-23] MEDS ORDERED: HYDROmorphone 2 MG/1 ML VIAL IV PRN ×2 (10:07)
[2017-07-23] MEDS ORDERED: MORPHINE IR 15 MG TABLET PO SCH (17:00)
[2017-07-23] MEDS ORDERED: oxyCODONE/ACETAMINOPHEN 5-325 MG TABLET PO SCH (17:00)
[2017-07-23] MEDS ORDERED: MORPHINE 2 MG/1 ML SYRINGE IV ONE (17:02)
[2017-07-23] MEDS: HYDROXYUREA 500 MG CAPSULE PO SCH (21:04)
[2017-07-23] MEDS: FOLIC ACID 1 MG TABLET PO SCH (21:04)
[2017-07-24] MEDS: SODIUM CHLORIDE 0.9% 1,000 ML IV SCH ×2 (02:10→04:48)
[2017-07-24] MEDS: HYDROmorphone 2 MG/1 ML VIAL IV PRN (02:56)
[2017-07-24] MEDS: oxyCODONE/ACETAMINOPHEN 5-325 MG TABLET PO PRN (04:45)
[2017-07-24] MEDS ORDERED: MORPHINE 2 MG/1 ML SYRINGE IV PRN (05:00)
[2017-07-24] MEDS ORDERED: HYDROmorphone 2 MG/1 ML VIAL IV PRN (06:25)
[2017-07-24 07:29] VITALS: BP 147/73
[2017-07-24] MEDS: cefTRIAXone 1,000 MG in SYRINGE 1 EACH IV SCH (08:11)
== END 2017-07-24 10:55 | disposition home or self-care (01) | DRG 812 ==
LOC: N.ED 00:47 → N.EDINP 04:22 → N.5E 04:38
PROVIDERS: ADMIT Internal Medicine; ATTEND Internal Medicine

== ENCOUNTER 2017-11-15 14:27 | Inpatient (IN) ==
[2017-11-15] MEDS ORDERED: ALBUTEROL 2.5 MG/3 ML NEB RESP TX PRN (16:16)
[2017-11-15 16:50] LABS: Basophils % 0.1 % (0.0-0.8); Eosinophils # 0.1 10*3/uL (0.0-0.87); Eosinophils % 0.2 % (0.00-10.9); Immature Granulocytes % 1.2 %; Immature Granulocytes Absolute 0.33 #; Lymphocytes # 2.1 10*3/uL (1.4-4.0); Lymphocytes % 7.2 % (21.2-54.2); Mean Corpuscular Hemoglobin 33 PG (27-34); Mean Corpuscular Volume 88.7 FL (87-102); Mean Platelet Volume 10.3 FL (9.6-12.0); Monocytes # 1.7 10*3/uL (0.11-0.8); Neutrophils # 24.3 10*3/uL (1.4-7.4); Neutrophils % 85.3 % (38.7-73.9); Platelet Count 300 T/CUMM (130-400); Red Blood Count 1.86 MC/CUMM (3.8-5.5); Red Cell Distribution Width 20.9 % (9.3-17.3); White Blood Count 28.5 T/CUMM (4-12)
[2017-11-15] MEDS ORDERED: FUROSEMIDE 40 MG/4 ML VIAL IV ONE (16:56)
[2017-11-15 17:06] LABS: Calcium 7.7 MG/DL (8.5-10.1); Osmolality,Calculated 272.4 MOS/KG (273-304); Potassium 5.9 MMOL/L (3.5-5.1)
[2017-11-15 17:25] LABS: Hematocrit 16.5 VOL% (42.0-52.0); Hemoglobin 6.1 GM/DL (14.0-18.0)
[2017-11-15] MEDS ORDERED: SODIUM CHLORIDE 0.9% 1,000 ML IV PRN (17:30)
[2017-11-15] MEDS ORDERED: SODIUM CHLORIDE 0.9% 2,000 ML IV ONE (17:40)
[2017-11-15 17:56] LABS: Barbiturates Screen,Urine Negative (Negative); Benzodiazepines Screen,Urine Negative (Negative); Cannabinoid Screen,Urine Negative (Negative); Opiate Screen,Urine Positive (Negative); Phencyclidine Screen,Urine Negative (Negative)
[2017-11-15 18:12] LABS: Apearance,Urine CLOUDY (Clear); Bacteria,Urine Occasional /HPF (Few); Bilirubin,Urine Negative (Negative); Blood, Urine Large mg/dL (Negative); Glucose,Urine (UA) Negative (Negative); Hyaline Casts,Urine 6 /LPF (0-3); Ketones,Urine Negative (Negative); Mucus,Urine Occasional /LPF (Occasional); Nitrite,Urine Negative (Negative); Protein,Urine 100 MG/DL; RBC,Urine 21 /HPF (0-4); Squamous Epithelial Cell,Urine Occasional /HPF (0-10); Urine Color Amber (Yellow); Urine Specific Gravity 1.011 (1.001-1.035); WBC,Urine 1 /HPF (0-6)
[2017-11-15 18:16] LABS: Albumin 3.9 G/DL (3.4-5.0); Bilirubin,Direct 1.01 MG/DL (0.0-0.20); Bilirubin,Indirect 2.9 MG/DL (0.0-1.0); Bilirubin,Total 3.9 MG/DL (0.2-1.0); Total Protein 7.1 G/DL (6.4-8.3)
[2017-11-15] MEDS: LEVOFLOXACIN INJ 750 MG in PREMIX 1 EACH IV SCH (18:29)
[2017-11-15] MEDS ORDERED: ACETAMINOPHEN 500 MG TABLET PO PRN (18:40)
[2017-11-15] MEDS ORDERED: ASCORBIC ACID 500 MG/1 ML VIAL IV ONE (18:52)
[2017-11-15 19:36] LABS: Sickle Cells 3+
[2017-11-15 19:37] LABS: Anisocytosis 2+; Hypochromasia 2+; Macrocytosis 1+; Target Cells Few
[2017-11-15 19:38] LABS: Polychromasia Few
[2017-11-15 19:40] LABS: Platelet Estimate Adequate
[2017-11-15] MEDS: SODIUM CHLORIDE 0.9% 1,000 ML IV SCH (20:17)
[2017-11-15] MEDS: PIPERACILLIN/TAZOBACTAM 3,375 MG in SODIUM CHLORIDE 0.9% 100 ML IV SCH (20:18)
[2017-11-15] MEDS: HYDROXYUREA 500 MG CAPSULE PO SCH (20:21)
[2017-11-15] MEDS: FOLIC ACID 1 MG TABLET PO SCH (20:21)
[2017-11-15] MEDS ORDERED: ACETAMINOPHEN 650 MG SUPP RECTAL PRN (22:21)
[2017-11-15] MEDS ORDERED: HALOPERIDOL 5 MG/ML AMP IM ONE (22:30)
[2017-11-15] MEDS: ACETAMINOPHEN 325 MG TABLET PO PRN (22:43)
[2017-11-15] MEDS ORDERED: VANCOMYCIN INJ 1,250 MG in SODIUM CHLORIDE 0.9% 250 ML IV ONE (23:00)
[2017-11-16] MEDS: SODIUM CHLORIDE 0.9% 1,000 ML IV SCH ×3 (01:04→12:10)
[2017-11-16] MEDS: PIPERACILLIN/TAZOBACTAM 3,375 MG in SODIUM CHLORIDE 0.9% 100 ML IV SCH (04:03)
[2017-11-16] MEDS ORDERED: ASCORBIC ACID 500 MG TABLET PO ONE ×2 (09:00→21:00)
[2017-11-16 09:09] LABS: Basophils # 0.1 10*3/uL (0.0-0.2); Basophils % 0.2 % (0.0-0.8); Eosinophils # 0.3 10*3/uL (0.0-0.87); Eosinophils % 0.8 % (0.00-10.9); Hematocrit 20.5 VOL% (42.0-52.0); Hemoglobin 7.4 GM/DL (14.0-18.0); Immature Granulocytes % 1.6 %; Immature Granulocytes Absolute 0.53 #; Lymphocytes # 2.4 10*3/uL (1.4-4.0); Lymphocytes % 7.4 % (21.2-54.2); Mean Corpuscular HGB Conc 36.1 GM/DL (32-36); Mean Corpuscular Hemoglobin 31 PG (27-34); Mean Corpuscular Volume 85.8 FL (87-102); Mean Platelet Volume 10.2 FL (9.6-12.0); Monocytes # 2.2 10*3/uL (0.11-0.8); Monocytes % 6.8 % (1.7-12.7); NRBC # 0.21 10*3/uL; Neutrophils # 27.3 10*3/uL (1.4-7.4); Neutrophils % 83.2 % (38.7-73.9); Platelet Count 299 T/CUMM (130-400); Red Blood Count 2.39 MC/CUMM (3.8-5.5); Red Cell Distribution Width 19.1 % (9.3-17.3); White Blood Count 32.9 T/CUMM (4-12)
[2017-11-16] MEDS: PANTOPRAZOLE 40 MG TABLET PO SCH (09:16)
[2017-11-16 09:42] LABS: Albumin 3.4 G/DL (3.4-5.0); Bilirubin,Total 4.6 MG/DL (0.2-1.0); Calcium 8.6 MG/DL (8.5-10.1); Osmolality,Calculated 288.1 MOS/KG (273-304); Potassium 5.1 MMOL/L (3.5-5.1); Total Protein 6.6 G/DL (6.4-8.3)
[2017-11-16 09:48] LABS: Thyroid Stimulating Hormone 0.726 uIU/ml (0.358-3.74)
[2017-11-16 10:17] LABS: Band Neutrophils 17 % (0-10); Lymphocytes 10 % (20-55); Segmented Neutrophils 68 % (50-85); Sickle Cells 2+; Total Cells Counted 100
[2017-11-16 10:18] LABS: Elliptocytes Few; Hypochromasia 1+; Platelet Estimate Adequate; Polychromasia Slight; Target Cells Slight
[2017-11-16] MEDS ORDERED: SODIUM CHLORIDE 0.9% 1,000 ML IV PRN (10:35)
[2017-11-16] MEDS: cefTRIAXone 2,000 MG in SYRINGE 1 EACH IV SCH (12:00)
[2017-11-16] MEDS: CLINDAMYCIN INJ 600 MG in PREMIX 1 EACH IV SCH ×2 (12:01→18:24)
[2017-11-16] MEDS: LACTATED RINGERS 1,000 ML IV SCH ×3 (12:01→22:23)
[2017-11-16] MEDS: ACETAMINOPHEN 325 MG TABLET PO PRN ×2 (12:26→20:13)
[2017-11-16] MEDS: LEVOFLOXACIN INJ 750 MG in PREMIX 1 EACH IV SCH (18:25)
[2017-11-16] MEDS: HYDROXYUREA 500 MG CAPSULE PO SCH (20:12)
[2017-11-16] MEDS: FOLIC ACID 1 MG TABLET PO SCH (20:14)
[2017-11-17] MEDS: CLINDAMYCIN INJ 600 MG in PREMIX 1 EACH IV SCH ×3 (03:12→18:48)
[2017-11-17] MEDS: LACTATED RINGERS 1,000 ML IV SCH ×4 (03:16→18:48)
[2017-11-17 06:04] LABS: Basophils % 0.2 % (0.0-0.8); Eosinophils % 3.9 % (0.00-10.9); Hematocrit 23.1 VOL% (42.0-52.0); Hemoglobin 8.2 GM/DL (14.0-18.0); Immature Granulocytes % 1.1 %; Immature Granulocytes Absolute 0.28 #; Lymphocytes % 7.6 % (21.2-54.2); Mean Corpuscular HGB Conc 35.5 GM/DL (32-36); Mean Corpuscular Hemoglobin 31 PG (27-34); Mean Corpuscular Volume 86.5 FL (87-102); Mean Platelet Volume 10.4 FL (9.6-12.0); Monocytes % 7.6 % (1.7-12.7); NRBC # 0.15 10*3/uL; Neutrophils # 20.5 10*3/uL (1.4-7.4); Neutrophils % 79.6 % (38.7-73.9); Platelet Count 265 T/CUMM (130-400); Red Blood Count 2.67 MC/CUMM (3.8-5.5); Red Cell Distribution Width 18.6 % (9.3-17.3); White Blood Count 25.7 T/CUMM (4-12)
[2017-11-17 06:24] LABS: Band Neutrophils 4 % (0-10); Eosinophils 2 % (0-10); Lymphocytes 10 % (20-55); Nucleated Red Blood Cells 1 (0-5); Segmented Neutrophils 79 % (50-85); Total Cells Counted 100
[2017-11-17 06:25] LABS: Anisocytosis 1+; Hypochromasia 1+; Microcytosis 1+; Ovalocytes Slight; Polychromasia Slight
[2017-11-17 06:26] LABS: Calcium 9.3 MG/DL (8.5-10.1); Howell-Jolly Bodies Slight; Osmolality,Calculated 284.1 MOS/KG (273-304); Pappenheimer Bodies Slight; Platelet Estimate Normal; Potassium 4.5 MMOL/L (3.5-5.1); Sickle Cells Few
[2017-11-17] MEDS ORDERED: PNEUMOCOCCAL VACCINE (13 VALENT) 0.5 ML SYRINGE IM ONE (09:00)
[2017-11-17] MEDS: PANTOPRAZOLE 40 MG TABLET PO SCH (09:58)
[2017-11-17] MEDS: cefTRIAXone 2,000 MG in SYRINGE 1 EACH IV SCH (12:48)
[2017-11-17] MEDS: LEVOFLOXACIN INJ 750 MG in PREMIX 1 EACH IV SCH (18:47)
[2017-11-17] MEDS: HYDROXYUREA 500 MG CAPSULE PO SCH (21:39)
[2017-11-17] MEDS: FOLIC ACID 1 MG TABLET PO SCH (21:39)
[2017-11-18] MEDS: LACTATED RINGERS 1,000 ML IV SCH ×4 (02:21→18:07)
[2017-11-18] MEDS: CLINDAMYCIN INJ 600 MG in PREMIX 1 EACH IV SCH ×3 (02:22→18:07)
[2017-11-18 05:45] LABS: Basophils # 0.1 10*3/uL (0.0-0.2); Basophils % 0.2 % (0.0-0.8); Eosinophils # 1.2 10*3/uL (0.0-0.87); Hematocrit 28.1 VOL% (42.0-52.0); Hemoglobin 9.7 GM/DL (14.0-18.0); Immature Granulocytes Absolute 0.25 #; Lymphocytes # 2.5 10*3/uL (1.4-4.0); Lymphocytes % 10.1 % (21.2-54.2); Mean Corpuscular HGB Conc 34.5 GM/DL (32-36); Mean Corpuscular Hemoglobin 30 PG (27-34); Mean Corpuscular Volume 85.9 FL (87-102); Monocytes # 1.6 10*3/uL (0.11-0.8); Monocytes % 6.6 % (1.7-12.7); NRBC # 0.07 10*3/uL; Neutrophils # 19.1 10*3/uL (1.4-7.4); Neutrophils % 77.1 % (38.7-73.9); Platelet Count 255 T/CUMM (130-400); Red Blood Count 3.27 MC/CUMM (3.8-5.5); White Blood Count 24.7 T/CUMM (4-12)
[2017-11-18 06:08] LABS: Anisocytosis 1+; Band Neutrophils 2 % (0-10); Eosinophils 9 % (0-10); Lymphocytes 15 % (20-55); Segmented Neutrophils 68 % (50-85); Sickle Cells Few; Target Cells Few; Total Cells Counted 100
[2017-11-18 06:09] LABS: Macrocytosis Slight
[2017-11-18 06:10] LABS: Ovalocytes Few; Poikilocytosis Slight
[2017-11-18 06:13] LABS: Albumin 3.3 G/DL (3.4-5.0); Bilirubin,Total 4.4 MG/DL (0.2-1.0); Calcium 9.7 MG/DL (8.5-10.1); Osmolality,Calculated 275.5 MOS/KG (273-304); Potassium 3.9 MMOL/L (3.5-5.1); Total Protein 6.7 G/DL (6.4-8.3)
[2017-11-18] MEDS: PANTOPRAZOLE 40 MG TABLET PO SCH (09:00)
[2017-11-18] MEDS: cefTRIAXone 2,000 MG in SYRINGE 1 EACH IV SCH (12:41)
[2017-11-18] MEDS ORDERED: oxyCODONE ER 10 MG TABLET PO SCH (17:42)
[2017-11-18] MEDS: LEVOFLOXACIN INJ 750 MG in PREMIX 1 EACH IV SCH (18:07)
[2017-11-18] MEDS: FOLIC ACID 1 MG TABLET PO SCH (20:41)
[2017-11-18] MEDS: HYDROXYUREA 500 MG CAPSULE PO SCH (20:41)
[2017-11-18] MEDS: oxyCODONE ER 10 MG TABLET PO SCH (20:41)
[2017-11-19] MEDS: CLINDAMYCIN INJ 600 MG in PREMIX 1 EACH IV SCH ×2 (05:01→11:10)
[2017-11-19] MEDS: LACTATED RINGERS 1,000 ML IV SCH (05:02)
[2017-11-19 05:54] LABS: Basophils # 0.1 10*3/uL (0.0-0.2); Basophils % 0.3 % (0.0-0.8); Eosinophils # 1.3 10*3/uL (0.0-0.87); Eosinophils % 7.3 % (0.00-10.9); Hematocrit 28.5 VOL% (42.0-52.0); Hemoglobin 10.1 GM/DL (14.0-18.0); Immature Granulocytes % 0.9 %; Immature Granulocytes Absolute 0.17 #; Lymphocytes # 3.2 10*3/uL (1.4-4.0); Lymphocytes % 17.1 % (21.2-54.2); Mean Corpuscular HGB Conc 35.4 GM/DL (32-36); Mean Corpuscular Hemoglobin 30 PG (27-34); Mean Corpuscular Volume 84.8 FL (87-102); Mean Platelet Volume 10.8 FL (9.6-12.0); Monocytes # 1.6 10*3/uL (0.11-0.8); Monocytes % 8.6 % (1.7-12.7); NRBC # 0.05 10*3/uL; Neutrophils # 12.2 10*3/uL (1.4-7.4); Neutrophils % 65.8 % (38.7-73.9); Platelet Count 283 T/CUMM (130-400); Red Blood Count 3.36 MC/CUMM (3.8-5.5); Red Cell Distribution Width 17.7 % (9.3-17.3); White Blood Count 18.5 T/CUMM (4-12)
[2017-11-19] MEDS: oxyCODONE ER 10 MG TABLET PO SCH (09:03)
[2017-11-19] MEDS: PANTOPRAZOLE 40 MG TABLET PO SCH (09:03)
[2017-11-19 10:53] VITALS: BP 150/90
[2017-11-19] MEDS ORDERED: MORPHINE 4 MG/1 ML VIAL IM ONE (11:05)
[2017-11-19] MEDS: cefTRIAXone 2,000 MG in SYRINGE 1 EACH IV SCH (11:42)
== END 2017-11-19 12:35 | disposition home or self-care (01) | DRG 871 ==
LOC: N.ICU 16:05 → SUATTDRO 16:05 → N.3E 11-18 19:52
PROVIDERS: ADMIT Internal Medicine; ATTEND Internal Medicine

== ENCOUNTER 2018-01-27 20:27 | Inpatient (IN) ==
[2018-01-28] MEDS ORDERED: KETOROLAC 30 MG/1 ML VIAL IV STA (01:01)
[2018-01-28] MEDS ORDERED: HYDROmorphone 2 MG/1 ML VIAL IV STA (01:01)
[2018-01-28] MEDS ORDERED: SODIUM CHLORIDE 0.9% 1,000 ML IV STA (01:02)
[2018-01-28 01:36] LABS: Basophils # 0.1 10*3/uL (0.0-0.2); Basophils % 0.4 % (0.0-0.8); Eosinophils % 3.6 % (0.00-10.9); Hemoglobin 7.7 GM/DL (14.0-18.0); Immature Granulocytes % 0.8 %; Immature Granulocytes Absolute 0.21 #; Lymphocytes # 11.9 10*3/uL (1.4-4.0); Lymphocytes % 43.5 % (21.2-54.2); Mean Corpuscular Hemoglobin 32 PG (27-34); Mean Corpuscular Volume 92.4 FL (87-102); Mean Platelet Volume 9.7 FL (9.6-12.0); Monocytes # 2.3 10*3/uL (0.11-0.8); Monocytes % 8.2 % (1.7-12.7); Neutrophils # 11.9 10*3/uL (1.4-7.4); Neutrophils % 43.5 % (38.7-73.9); Platelet Count 656 T/CUMM (130-400); Red Blood Count 2.38 MC/CUMM (3.8-5.5); Red Cell Distribution Width 26.1 % (9.3-17.3); White Blood Count 27.3 T/CUMM (4-12)
[2018-01-28 01:38] LABS: Apearance,Urine CLEAR (Clear); Bilirubin,Urine Negative (Negative); Blood, Urine Negative (Negative); Glucose,Urine (UA) Negative (Negative); Ketones,Urine Negative (Negative); Mucus,Urine Occasional /LPF (Occasional); Nitrite,Urine Negative (Negative); Protein,Urine Negative; RBC,Urine <1 /HPF (0-4); Urine Color Yellow (Yellow); Urine Specific Gravity 1.019 (1.001-1.035); Urine Urobilinogen < 2.0 EU/DL (0.2-1.0); WBC,Urine <1 /HPF (0-6)
[2018-01-28] MEDS ORDERED: HYDROmorphone 2 MG/1 ML VIAL IV ONE ×2 (01:49→15:31)
[2018-01-28] MEDS ORDERED: diphenhydrAMINE 50 MG/1 ML VIAL IV STA (01:49)
[2018-01-28 01:53] LABS: Albumin 4.1 G/DL (3.4-5.0); Bilirubin,Total 2.7 MG/DL (0.2-1.0); Calcium 9.2 MG/DL (8.5-10.1); Osmolality,Calculated 278.4 MOS/KG (273-304)
[2018-01-28 01:55] LABS: Barbiturates Screen,Urine Negative (Negative); Benzodiazepines Screen,Urine Negative (Negative); Cannabinoid Screen,Urine Negative (Negative); Opiate Screen,Urine Negative (Negative); Phencyclidine Screen,Urine Negative (Negative)
[2018-01-28] MEDS ORDERED: HYDROmorphone 2 MG/1 ML VIAL IV PRN ×2 (02:15→06:11)
[2018-01-28 03:02] LABS: Band Neutrophils 1 % (0-10); Eosinophils 4 % (0-10); Lymphocytes 49 % (20-55); Nucleated Red Blood Cells 3 (0-5); Platelet Estimate Increased; Segmented Neutrophils 41 % (50-85); Total Cells Counted 100
[2018-01-28 03:04] LABS: Sickle Cells 1+; Target Cells Few
[2018-01-28] MEDS ORDERED: HYDROmorphone 2 MG/1 ML VIAL IM PRN (06:17)
[2018-01-28] MEDS: SODIUM CHLORIDE 0.9% 1,000 ML IV SCH ×3 (07:50→20:59)
[2018-01-28] MEDS ORDERED: SODIUM CHLORIDE 0.9% 1,000 ML IV PRN (08:32)
[2018-01-28] MEDS ORDERED: ENOXAPARIN 40 MG/0.4 ML SYRINGE SUBCUT SCH (09:00)
[2018-01-28] MEDS ORDERED: MORPHINE ER 30 MG TABLET PO SCH (09:00)
[2018-01-28] MEDS ORDERED: ALPRAZolam 0.5 MG TABLET PO SCH (09:00)
[2018-01-28] MEDS ORDERED: PANTOPRAZOLE 40 MG TABLET PO SCH (09:00)
[2018-01-28] MEDS ORDERED: METHOCARBAMOL INJ 500 MG in SODIUM CHLORIDE 0.9% 100 ML IV ONE (10:18)
[2018-01-28] MEDS: SUCRALFATE 1 GM TABLET PO SCH ×2 (12:58→16:42)
[2018-01-28] MEDS: FOLIC ACID 1 MG TABLET PO SCH ×2 (12:58→21:06)
[2018-01-28] MEDS ORDERED: diphenhydrAMINE CAP 50 MG CAPSULE PO ONE (13:54)
[2018-01-28] MEDS ORDERED: ACETAMINOPHEN 500 MG TABLET PO ONE (13:54)
[2018-01-28] MEDS ORDERED: methylPREDNISolone SOD SUC 40 MG/1 ML VIAL IV ONE (13:54)
[2018-01-28] MEDS ORDERED: diphenhydrAMINE 50 MG/1 ML VIAL IV ONE ×2 (13:56→23:30)
[2018-01-28] MEDS: KETOROLAC 30 MG/1 ML VIAL IV PRN (13:58)
[2018-01-28] MEDS: HYDROmorphone 2 MG/1 ML VIAL IM PRN (13:59)
[2018-01-28] MEDS: IBUPROFEN 800 MG TABLET PO SCH ×3 (14:12→21:08)
[2018-01-28] MEDS ORDERED: NON-FORMULARY MEDICATION (Oxycodone Hcl/Acetaminophen [Percocet 10-325 Mg Tablet] 1 EACH) PO PRN (17:04)
[2018-01-28] MEDS ORDERED: HYDROXYUREA 500 MG CAPSULE PO SCH (21:00)
[2018-01-28] MEDS ORDERED: MORPHINE IR 15 MG TABLET PO SCH (21:00)
[2018-01-28] MEDS: METHOCARBAMOL INJ 1,000 MG in SODIUM CHLORIDE 0.9% 100 ML IV SCH (21:08)
[2018-01-28] MEDS: oxyCODONE IR 5 MG TABLET PO PRN (21:08)
[2018-01-28] MEDS ORDERED: HYDROmorphone 2 MG/1 ML VIAL IM ONE (23:23)
[2018-01-28] MEDS ORDERED: oxyCODONE IR 5 MG TABLET PO ONE (23:30)
[2018-01-29] MEDS: HYDROmorphone 2 MG/1 ML VIAL IM PRN (04:00)
[2018-01-29] MEDS: oxyCODONE IR 5 MG TABLET PO PRN (04:01)
[2018-01-29] MEDS: KETOROLAC 30 MG/1 ML VIAL IV PRN (04:28)
[2018-01-29] MEDS: METHOCARBAMOL INJ 1,000 MG in SODIUM CHLORIDE 0.9% 100 ML IV SCH (04:31)
[2018-01-29 05:01] VITALS: BP 130/76
[2018-01-29] MEDS: SODIUM CHLORIDE 0.9% 1,000 ML IV SCH (05:05)
[2018-01-29 05:08] LABS: Basophils % 0.2 % (0.0-0.8); Eosinophils # 0.1 10*3/uL (0.0-0.87); Eosinophils % 0.6 % (0.00-10.9); Hematocrit 22.3 VOL% (42.0-52.0); Hemoglobin 7.7 GM/DL (14.0-18.0); Immature Granulocytes % 0.5 %; Lymphocytes # 7.1 10*3/uL (1.4-4.0); Lymphocytes % 33.9 % (21.2-54.2); Mean Corpuscular HGB Conc 34.5 GM/DL (32-36); Mean Corpuscular Hemoglobin 32 PG (27-34); Mean Corpuscular Volume 91.4 FL (87-102); Mean Platelet Volume 9.7 FL (9.6-12.0); Monocytes # 1.9 10*3/uL (0.11-0.8); Monocytes % 9.1 % (1.7-12.7); NRBC # 0.18 10*3/uL; Neutrophils # 11.6 10*3/uL (1.4-7.4); Neutrophils % 55.7 % (38.7-73.9); Platelet Count 465 T/CUMM (130-400); Red Blood Count 2.44 MC/CUMM (3.8-5.5); Red Cell Distribution Width 25.8 % (9.3-17.3); White Blood Count 20.9 T/CUMM (4-12)
[2018-01-29 05:32] LABS: Eosinophils 1 % (0-10); Lymphocytes 31 % (20-55); Macrocytosis 1+; Platelet Estimate Increased; Polychromasia 1+; Segmented Neutrophils 58 % (50-85); Total Cells Counted 100
[2018-01-29 05:33] LABS: Elliptocytes Few; Sickle Cells Few
== END 2018-01-29 08:45 | disposition home or self-care (01) | DRG 812 ==
LOC: N.ED 20:27 → N.EDINP 01-28 02:13 → N.4E 01-28 08:10
PROVIDERS: ADMIT Hospitalist; ATTEND Hospitalist

== ENCOUNTER 2018-02-28 19:41 | Observation (INO) ==
[2018-03-01] MEDS ORDERED: SODIUM CHLORIDE 0.9% 1,000 ML IV STA (00:09)
[2018-03-01] MEDS ORDERED: fentaNYL 100 MCG/2 ML VIAL IV STA (00:10)
[2018-03-01 00:41] LABS: Basophils # 0.1 10*3/uL (0.0-0.2); Basophils % 0.4 % (0.0-0.8); Eosinophils # 0.8 10*3/uL (0.0-0.87); Eosinophils % 3.7 % (0.00-10.9); Hematocrit 20.2 VOL% (42.0-52.0); Hemoglobin 7.3 GM/DL (14.0-18.0); Immature Granulocytes % 0.6 %; Immature Granulocytes Absolute 0.14 #; Mean Corpuscular HGB Conc 36.1 GM/DL (32-36); Mean Corpuscular Hemoglobin 34 PG (27-34); Mean Platelet Volume 9.9 FL (9.6-12.0); Monocytes # 1.8 10*3/uL (0.11-0.8); Monocytes % 8.5 % (1.7-12.7); NRBC # 0.18 10*3/uL; Neutrophils # 10.7 10*3/uL (1.4-7.4); Neutrophils % 49.8 % (38.7-73.9); Platelet Count 501 T/CUMM (130-400); Red Blood Count 2.15 MC/CUMM (3.8-5.5); Red Cell Distribution Width 26.7 % (9.3-17.3); White Blood Count 21.6 T/CUMM (4-12)
[2018-03-01 00:49] LABS: Apearance,Urine CLEAR (Clear); Bilirubin,Urine Negative (Negative); Blood, Urine Small mg/dL (Negative); Glucose,Urine (UA) Negative (Negative); Ketones,Urine Negative (Negative); Mucus,Urine Occasional /LPF (Occasional); Nitrite,Urine Negative (Negative); Protein,Urine 30 MG/DL; Urine Color Yellow (Yellow); Urine Specific Gravity 1.008 (1.001-1.035); Urine Urobilinogen < 2.0 EU/DL (0.2-1.0); WBC,Urine <1 /HPF (0-6)
[2018-03-01 00:59] LABS: Barbiturates Screen,Urine Negative (Negative); Benzodiazepines Screen,Urine Negative (Negative); Cannabinoid Screen,Urine Negative (Negative); Opiate Screen,Urine Positive (Negative); Phencyclidine Screen,Urine Negative (Negative)
[2018-03-01 01:01] LABS: Bilirubin,Total 3.5 MG/DL (0.2-1.0); Calcium 9.4 MG/DL (8.5-10.1); Osmolality,Calculated 280.3 MOS/KG (273-304); Potassium 3.6 MMOL/L (3.5-5.1); Total Protein 7.4 G/DL (6.4-8.3)
[2018-03-01 01:12] LABS: Hypochromasia 1+; Ovalocytes 1+; Platelet Estimate Increased; Target Cells Few
[2018-03-01 01:13] LABS: Sickle Cells 2+
[2018-03-01 01:14] LABS: Microcytosis 2+; Stomatocytes Few
[2018-03-01 01:18] LABS: Howell-Jolly Bodies 1+; Polychromasia Few
[2018-03-01 01:19] LABS: Giant Platelets Few; Poikilocytosis 2+
[2018-03-01] MEDS ORDERED: METOCLOPRAMIDE 10 MG/2 ML VIAL IV STA (01:21)
[2018-03-01] MEDS ORDERED: HYDROmorphone 2 MG/1 ML VIAL IV STA (01:21)
[2018-03-01] MEDS ORDERED: diphenhydrAMINE 50 MG/1 ML VIAL IV STA (01:25)
[2018-03-01] MEDS ORDERED: SODIUM CHLORIDE 0.45% 1,000 ML IV SCH (02:00)
[2018-03-01] MEDS ORDERED: diphenhydrAMINE CAP 50 MG CAPSULE PO PRN (02:02)
[2018-03-01] MEDS: HYDROmorphone 2 MG/1 ML VIAL IV PRN ×2 (02:49→08:48)
[2018-03-01 05:41] LABS: Basophils # 0.1 10*3/uL (0.0-0.2); Basophils % 0.3 % (0.0-0.8); Eosinophils # 0.7 10*3/uL (0.0-0.87); Eosinophils % 3.6 % (0.00-10.9); Hematocrit 18.7 VOL% (42.0-52.0); Immature Granulocytes % 0.4 %; Immature Granulocytes Absolute 0.08 #; Lymphocytes # 7.7 10*3/uL (1.4-4.0); Lymphocytes % 40.4 % (21.2-54.2); Mean Corpuscular HGB Conc 34.2 GM/DL (32-36); Mean Corpuscular Hemoglobin 32 PG (27-34); Mean Platelet Volume 10.2 FL (9.6-12.0); Monocytes # 1.7 10*3/uL (0.11-0.8); Monocytes % 9.1 % (1.7-12.7); NRBC # 0.13 10*3/uL; Neutrophils # 8.8 10*3/uL (1.4-7.4); Neutrophils % 46.2 % (38.7-73.9); Platelet Count 493 T/CUMM (130-400); Red Blood Count 1.99 MC/CUMM (3.8-5.5); Red Cell Distribution Width 26.5 % (9.3-17.3)
[2018-03-01 05:48] LABS: Hemoglobin 6.4 GM/DL (14.0-18.0)
[2018-03-01 06:06] LABS: Anisocytosis 2+; Hypochromasia 1+; Microcytosis 2+; Platelet Estimate Increased
[2018-03-01 06:06] LABS: Albumin 3.6 G/DL (3.4-5.0); Bilirubin,Total 3.6 MG/DL (0.2-1.0); Osmolality,Calculated 276.4 MOS/KG (273-304); Potassium 3.9 MMOL/L (3.5-5.1); Total Protein 6.6 G/DL (6.4-8.3)
[2018-03-01 06:07] LABS: Howell-Jolly Bodies Slight; Ovalocytes 1+; Pappenheimer Bodies Slight; Target Cells 1+
[2018-03-01 06:08] LABS: Sickle Cells 1+
[2018-03-01 07:51] VITALS: BP 139/85
[2018-03-01] MEDS ORDERED: DOCUSATE SODIUM 100 MG CAPSULE PO SCH (09:00)
[2018-03-01] MEDS ORDERED: PANTOPRAZOLE 40 MG TABLET PO SCH (09:00)
[2018-03-01] MEDS ORDERED: ENOXAPARIN 40 MG/0.4 ML SYRINGE SUBCUT SCH (09:00)
[2018-03-01] MEDS ORDERED: MORPHINE IR 15 MG TABLET PO SCH (09:00)
[2018-03-01] MEDS ORDERED: FOLIC ACID 1 MG TABLET PO SCH (09:00)
[2018-03-01] MEDS ORDERED: KETOROLAC 30 MG/1 ML VIAL IV PRN (09:58)
[2018-03-01] MEDS ORDERED: SODIUM CHLORIDE 0.9% 1,000 ML IV PRN (09:59)
[2018-03-01] MEDS ORDERED: HYDROmorphone 2 MG/1 ML VIAL IV PRN (09:59)
[2018-03-01] MEDS ORDERED: HYDROXYUREA 500 MG CAPSULE PO SCH (21:00)
== END 2018-03-01 10:50 | disposition home or self-care (01) ==
LOC: N.EDINP 19:41 → N.ED 19:41 → N.3E 03-01 03:00

== ENCOUNTER 2019-04-04 21:12 | Observation (INO) ==
[2019-04-04] MEDS ORDERED: SODIUM CHLORIDE 0.9% 1,000 ML IV STA (21:45)
[2019-04-04] MEDS ORDERED: diphenhydrAMINE 50 MG/1 ML VIAL IV STA ×3 (21:46→23:48)
[2019-04-04] MEDS ORDERED: HYDROmorphone 2 MG/1 ML VIAL IV STA ×5 (21:46→23:47)
[2019-04-04 22:23] LABS: Basophils # 0.1 10*3/uL (0.0-0.2); Basophils % 0.3 % (0.0-0.8); Eosinophils # 0.5 10*3/uL (0.0-0.87); Eosinophils % 2.5 % (0.00-10.9); Hematocrit 22.2 VOL% (42.0-52.0); Hemoglobin 7.8 GM/DL (14.0-18.0); Immature Granulocytes % 0.4 %; Immature Granulocytes Absolute 0.08 #; Lymphocytes # 7.5 10*3/uL (1.4-4.0); Lymphocytes % 37.2 % (21.2-54.2); Mean Corpuscular HGB Conc 35.1 GM/DL (32-36); Mean Corpuscular Volume 104.2 FL (87-102); Mean Platelet Volume 9.5 FL (9.6-12.0); Monocytes % 8.8 % (1.7-12.7); NRBC # 0.09 10*3/uL; Neutrophils % 50.8 % (38.7-73.9); Platelet Count 435 T/CUMM (130-400); Red Blood Count 2.13 MC/CUMM (3.8-5.5); Red Cell Distribution Width 21.4 % (9.3-17.3); White Blood Count 20.2 T/CUMM (4-12)
[2019-04-04 22:49] LABS: Bilirubin,Total 3.1 MG/DL (0.2-1.0); Calcium 9.3 MG/DL (8.5-10.1); Osmolality,Calculated 282.3 MOS/KG (273-304); Total Protein 7.2 G/DL (6.4-8.3)
[2019-04-04 23:46] LABS: Eosinophils 4 % (0-10); Lymphocytes 34 % (20-55); Segmented Neutrophils 53 % (50-85); Total Cells Counted 100
[2019-04-04 23:48] LABS: Anisocytosis 3+; Hypochromasia 2+; Macrocytosis 1+; Microcytosis 2+; Ovalocytes 2+; Poikilocytosis 1+; Smudge Cells 1+; Target Cells 2+
[2019-04-04 23:50] LABS: Polychromasia 1+
[2019-04-04 23:51] LABS: Pappenheimer Bodies Few; Platelet Estimate Adequate; Sickle Cells 2+; Tear Drop Cells Few
[2019-04-05] MEDS ORDERED: SODIUM CHLORIDE 0.9% 1,000 ML IV STA (00:40)
[2019-04-05] MEDS ORDERED: HYDROmorphone 2 MG/1 ML VIAL IV STA ×2 (00:49→02:19)
[2019-04-05] MEDS ORDERED: diphenhydrAMINE 50 MG/1 ML VIAL IV STA (01:38)
[2019-04-05] MEDS ORDERED: HYDROmorphone 2 MG/1 ML VIAL IV PRN ×2 (03:03→06:26)
[2019-04-05] MEDS ORDERED: LACTATED RINGERS 1,000 ML IV SCH (03:03)
[2019-04-05 04:26] LABS: Basophils # 0.1 10*3/uL (0.0-0.2); Basophils % 0.3 % (0.0-0.8); Eosinophils # 0.4 10*3/uL (0.0-0.87); Eosinophils % 1.7 % (0.00-10.9); Hematocrit 18.1 VOL% (42.0-52.0); Immature Granulocytes % 0.6 %; Immature Granulocytes Absolute 0.15 #; Lymphocytes # 9.3 10*3/uL (1.4-4.0); Mean Corpuscular HGB Conc 34.8 GM/DL (32-36); Mean Corpuscular Volume 103.4 FL (87-102); Mean Platelet Volume 9.7 FL (9.6-12.0); Monocytes % 9.9 % (1.7-12.7); NRBC # 0.07 10*3/uL; Neutrophils % 50.5 % (38.7-73.9); Platelet Count 245 T/CUMM (130-400); Red Blood Count 1.75 MC/CUMM (3.8-5.5); Red Cell Distribution Width 21.3 % (9.3-17.3); White Blood Count 25.1 T/CUMM (4-12)
[2019-04-05 04:31] LABS: Hemoglobin 6.3 GM/DL (14.0-18.0)
[2019-04-05 04:44] LABS: Albumin 4.1 G/DL (3.4-5.0); Bilirubin,Direct 0.72 MG/DL (0.0-0.20); Bilirubin,Indirect 3.6 MG/DL (0.0-1.0); Bilirubin,Total 4.3 MG/DL (0.2-1.0); Calcium 8.7 MG/DL (8.5-10.1); Osmolality,Calculated 277.7 MOS/KG (273-304); Total Protein 7.4 G/DL (6.4-8.3)
[2019-04-05 04:48] LABS: Eosinophils 1 % (0-10); Hypochromasia 1+; Lymphocytes 44 % (20-55); Macrocytosis Slight; Platelet Estimate Adequate; Polychromasia Slight; Segmented Neutrophils 48 % (50-85); Sickle Cells 1+; Total Cells Counted 100
[2019-04-05 04:49] LABS: Elliptocytes Few; Howell-Jolly Bodies Few; Pappenheimer Bodies Few
[2019-04-05] MEDS ORDERED: SODIUM CHLORIDE 0.9% 1,000 ML IV PRN ×2 (05:50→08:15)
[2019-04-05] MEDS: diphenhydrAMINE 50 MG/1 ML VIAL IV PRN ×4 (06:09→23:51)
[2019-04-05] MEDS ORDERED: oxyCODONE IR 5 MG TABLET PO PRN ×3 (07:58→09:10)
[2019-04-05] MEDS: IBUPROFEN 800 MG TABLET PO SCH ×4 (08:22→20:56)
[2019-04-05] MEDS: ALPRAZolam 0.5 MG TABLET PO SCH (08:23)
[2019-04-05] MEDS: FOLIC ACID 1 MG TABLET PO SCH (08:23)
[2019-04-05] MEDS ORDERED: NALOXONE 0.4 MG/ML VIAL IV PRN (09:05)
[2019-04-05] MEDS ORDERED: HYDROmorphone PCA 30 MG/30 ML SYRINGE IV SCH (09:30)
[2019-04-05] MEDS ORDERED: ALPRAZolam 0.5 MG TABLET PO PRN (09:53)
[2019-04-05] MEDS: HYDROmorphone 2 MG/1 ML VIAL IV PRN ×5 (11:42→23:50)
[2019-04-05] MEDS: MEROPENEM 500 MG in SODIUM CHLORIDE 0.9% 100 ML IV SCH ×2 (14:52→21:02)
[2019-04-05] MEDS: oxyCODONE IR 5 MG TABLET PO PRN ×2 (16:13→20:57)
[2019-04-05] MEDS ORDERED: HYDROXYUREA 500 MG CAPSULE PO SCH (21:00)
[2019-04-06] MEDS: HYDROmorphone 2 MG/1 ML VIAL IV PRN ×2 (03:01→05:52)
[2019-04-06] MEDS: MEROPENEM 500 MG in SODIUM CHLORIDE 0.9% 100 ML IV SCH ×2 (05:50→15:01)
[2019-04-06] MEDS: diphenhydrAMINE 50 MG/1 ML VIAL IV PRN (05:51)
[2019-04-06] MEDS: oxyCODONE IR 5 MG TABLET PO PRN (07:39)
[2019-04-06 07:49] LABS: Basophils # 0.1 10*3/uL (0.0-0.2); Basophils % 0.4 % (0.0-0.8); Eosinophils # 1.1 10*3/uL (0.0-0.87); Eosinophils % 5.4 % (0.00-10.9); Hematocrit 19.9 VOL% (42.0-52.0); Hemoglobin 7.3 GM/DL (14.0-18.0); Immature Granulocytes % 0.7 %; Immature Granulocytes Absolute 0.13 #; Lymphocytes # 8.7 10*3/uL (1.4-4.0); Lymphocytes % 43.7 % (21.2-54.2); Mean Corpuscular HGB Conc 36.7 GM/DL (32-36); Mean Platelet Volume 9.7 FL (9.6-12.0); Monocytes % 9.2 % (1.7-12.7); NRBC # 0.08 10*3/uL; Neutrophils % 40.6 % (38.7-73.9); Red Blood Count 2.03 MC/CUMM (3.8-5.5); Red Cell Distribution Width 23.3 % (9.3-17.3); White Blood Count 19.8 T/CUMM (4-12)
[2019-04-06 07:51] LABS: Platelet Count 372 T/CUMM (130-400)
[2019-04-06] MEDS ORDERED: SODIUM CHLORIDE 0.9% 1,000 ML IV PRN (08:01)
[2019-04-06 08:03] LABS: Eosinophils 4 % (0-10); Lymphocytes 50 % (20-55); Platelet Estimate Adequate; Segmented Neutrophils 40 % (50-85); Total Cells Counted 100
[2019-04-06 08:04] LABS: Elliptocytes Few; Howell-Jolly Bodies Few; Hypochromasia 1+; Macrocytosis Slight; Pappenheimer Bodies Few; Polychromasia Slight; Sickle Cells 1+; Target Cells Few
[2019-04-06] MEDS ORDERED: SCOPOLAMINE 1.5 MG PATCH TRANSDERM ONE (09:25)
[2019-04-06] MEDS: FOLIC ACID 1 MG TABLET PO SCH (09:53)
[2019-04-06] MEDS: IBUPROFEN 800 MG TABLET PO SCH ×2 (09:53→13:23)
[2019-04-06] MEDS: ALPRAZolam 0.5 MG TABLET PO SCH (09:55)
[2019-04-06 13:21] VITALS: BP 128/96
[2019-04-06 14:11] LABS: Hematocrit 23.3 VOL% (42.0-52.0)
[2019-04-06 14:14] LABS: Hemoglobin 8.5 GM/DL (14.0-18.0)
[2019-04-06] MEDS ORDERED: HEPARIN LOCK FLUSH 500 UNIT/5 ML SYRINGE IV ONE (14:50)
== END 2019-04-06 16:43 | disposition home or self-care (01) ==
LOC: N.EDINP 21:12 → N.ED 21:12 → N.TELES 04-05 03:01 → INTOOBSV 04-05 07:23
PROVIDERS: ADMIT Internal Medicine; ATTEND Internal Medicine